=== PATIENT | female | born 1945 | race Caucasian/White ===

== ENCOUNTER 2016-12-24 17:27 | Observation (INO) | payer MEDICARE ==
[2016-12-24 17:56] LABS: BASOPHIL % 0.4 % (0.0-0.4); Eosinophil % 5.8 % (0.00-5.0); Granulocytes % 51.8 % (36.0-66.0); Lymphocytes % 32.2 % (24.0-44.0); Mean Cell Volume 103.4 fl (78-100); Mean Corpuscular Hemoglobin 32.6 pg (26-32); Mean Platelet Volume 9.9 fl (6-9.5); Monocytes % 9.8 % (0.0-12.0); Platelet Count 130 K/mm3 (150-450); Red Blood Count 3.86 M/mm3 (4.1-5.4); Red Cell Distribution Width 14.8 % (11.5-14.0); White Blood Count 4.8 K/mm3 (4.0-10.5)
--- NOTE | 2016-12-24 17:58 | ERPHSYRPT ---
- History of Present Illness Time Seen by Provider: 12/24/16 17:41 Source: patient, family (daughter) Patient Subjective Stated Complaint: pt states she woke up this morning feeling weak. daughter concerned pt blood pressure was to low at home. pt states she ran errands the rest of the day. Triage Nursing Assessment: pt pink, warm, dry. [facility]. radial pulses equally strong. Physician History: CC: fatigue hx: 71 y/o patient of Dr Deangelo De Leon. She was up early today to go with daughter to doctor. She had some lightheadedness and fatigue. She felt blurry eyed. No chest or abd pain. No V/D. BP was low at home over a period of two hours so she came to ER. Symptoms moderate but general. Timing/Duration: today Severity: moderate Allergies/Adverse Reactions: codeine Allergy (Verified 12/24/16 17:45) Penicillins Allergy (Verified 12/24/16 17:45) Sulfa (Sulfonamide Antibiotics) Allergy (Verified 12/24/16 17:45) hydromorphone [From Dilaudid] Adverse Reaction (Verified 12/24/16 17:45) Home Medications: Aspirin 81 mg PO DAILY 12/24/16 [History] Clopidogrel Bisulfate [Plavix] 75 mg PO DAILY 12/24/16 [History] Furosemide 40 mg [Lasix 40 MG] 40 mg PO DAILY 12/24/16 [History] Gabapentin 600 mg PO TID 12/24/16 [History] Metoprolol Tartrate 75 mg PO BID 12/24/16 [History] Pramipexole Di-HCl [Mirapex] 1 mg PO BID 12/24/16 [History] Simvastatin 10 mg PO DAILY 12/24/16 [History] Hx Tetanus, Diphtheria Vaccination/Date Given: Yes (up to date) Hx Influenza Vaccination/Date Given: Yes Hx Pneumococcal Vaccination/Date Given: Yes Immunizations Up to Date: Yes - Review of Systems Constitutional: Chills, Malaise, Weakness, No Fever Eyes: Vision Changes (blurry eyed) Respiratory: No Cough, No Dyspnea Cardiac: No Chest Pain, No Palpitations, No Syncope Abdominal/Gastrointestinal: No Abdominal Pain, No Nausea, No Vomiting, No Diarrhea Genitourinary Symptoms: No Dysuria Musculoskeletal: No Back Pain, No Neck Pain Skin: No Rash Neurological: No Focal Weakness, No Headache, No Parasthesia (but has neuropathy ) All Other Systems: Reviewed and Negative - Past Medical History Pertinent Past Medical History: Yes ENT History: Cataracts Cardiac History: Aneurysm, High Cholesterol, Hypertension Respiratory History: COPD GI Medical History: GERD, Hernia Psycho-Social History: Depression - Past Surgical History Past Surgical History: Yes Cardiac: Vascular Surgery Gastrointestinal: Appendectomy Female Surgical History: Hysterectomy Other Surgical History: cystocele. rectocele. carotidendarectomy - Social History Smoking Status: Current some day smoker Exposure to second hand smoke: Yes Drug Use: none Patient Lives Alone: Yes - Nursing Vital Signs Nursing Vital Signs: Initial Vital Signs Temperature 97.0 F Temperature Source Rectal Pulse Rate 64 Respiratory Rate 18 Blood Pressure [] 133/64 Blood Pressure [] 113/71 Pain Intensity 0 - Physical Exam General Appearance: alert, other (pleasant lady) Eye Exam: PERRL/EOMI Ears, Nose, Throat Exam: dry mucous membranes Neck Exam: normal inspection, non-tender, supple Respiratory Exam: normal breath sounds, lungs clear Cardiovascular Exam: regular rate/rhythm, No murmur Gastrointestinal/Abdomen Exam: soft, No tenderness, No distention Extremity Exam: normal inspection, normal range of motion Neurologic Exam: alert, oriented x 3, cooperative, sensation nml, No motor deficits Skin Exam: warm, dry, No rash SpO2 Interpretation: borderline oxygenation SpO2: 94 Oxygen Delivery: Room Air - Course Nursing assessment & vital signs reviewed: Yes - Radiology Exams cxr X-ray Interpretation: Reviewed by me (right basilar infiltrate, known thoracic aneurysm, CM) Ordered Tests: Active Orders 24 hr Category Date Time Status Desktop Support Manager STAT Care 12/24/16 18:41 Active Cath for Specimen-Straight STAT Care 12/24/16 17:46 Active EKG-ER Only STAT Care 12/24/16 17:46 Active IV Insertion STAT Care 12/24/16 17:46 Active Oxygen-ED Only NASAL CANNULA 2 lpm Care 12/24/16 18:42 Active Oxygen-ED Only NASAL CANNULA 2 lpm Care 12/24/16 18:43 Active Rectal Temperature STAT Care 12/24/16 18:34 Active CHEST 1 VIEW (PORTABLE) Stat Exams 12/24/16 17:55 Taken BLOOD CULTURE Stat Lab 12/24/16 18:49 Received CBC W DIFF Stat Lab 12/24/16 17:51 Completed CMP Stat Lab 12/24/16 17:51 Completed CULTURE,URINE Stat Lab 12/24/16 18:47 Received Lactic Acid Stat Lab 12/24/16 18:20 Results NT PRO BNP Stat Lab 12/24/16 18:28 Completed TROPONIN Stat Lab 12/24/16 17:51 Completed UA W/ MICROSCOPIC Stat Lab 12/24/16 18:47 Completed Medication Summary Generic Name Dose Route Start Last Admin Trade Name Gordon PRN Reason Stop Dose Admin Sodium Chloride 1,000 mls @ 100 mls/hr 12/24/16 18:00 12/24/16 18:11 Sodium Chloride 0.9% 1000 Ml IV 01/23/17 17:59 100 mls/hr .Q10H NORRIS Administration Azithromycin 500 mg in 250 mls @ 250 mls/hr 12/24/16 18:40 12/24/16 18:59 Zithromax 500 Mg/ 250 Ml Nacl Premix IV 12/24/16 19:39 250 mls/hr STAT STA Administration Discontinued Medications Generic Name Dose Route Start Last Admin Trade Name Derrickq PRN Reason Stop Dose Admin Ceftriaxone Sodium/Dextrose 1 g in 50 mls @ 100 mls/hr 12/24/16 18:40 18:52 Rocephin 1 Gm-D5w 50 Ml Bag IV 12/24/16 19:09 100 mls/hr STAT STA Administration Ceftriaxone Sodium/Dextrose Confirm 12/24/16 18:51 Rocephin 1 Gm-D5w 50 Ml Bag Administered 12/24/16 18:52 Dose 1 g in 50 mls @ ud IV .STK-MED ONE Azithromycin Confirm 12/24/16 18:59 Zithromax 500 Mg/ 250 Ml Nacl Premix Administered 12/24/16 19:00 Dose 500 mg in 250 mls @ ud IV .STK-MED ONE Insulin Aspart 6 unit 12/24/16 18:41 12/24/16 18:52 Novolog Insulin SQ 12/24/16 18:42 6 unit STAT ONE Administration Insulin Aspart Confirm 12/24/16 18:51 Novolog Insulin Administered 12/24/16 18:52 Dose 6 unit .ROUTE .STK-MED ONE Lab/Rad Data: Laboratory Result Diagrams 12/24/16 17:51 12/24/16 17:51 Laboratory Results 12/24/16 12/24/16 12/24/16 Range/Units 18:47 18:28 18:20 WBC (4.0-10.5) K/mm3 RBC (4.1-5.4) M/mm3 Hgb (12.0-16.0) gm/dl Hct (35-47) % MCV (78-100) fl MCH (26-32) pg MCHC (32-36) g/dl RDW (11.5-14.0) % Plt Count (150-450) K/mm3 MPV (6-9.5) fl Gran % (36.0-66.0) % Lymphocytes % (24.0-44.0) % Monocytes % (0.0-12.0) % Eosinophils % (0.00-5.0) % Basophils % (0.0-0.4) % Basophils # (0-0.4) Sodium (136-145) mEq/L Potassium (3.5-5.1) mEq/L Chloride (98-107) mEq/L Carbon Dioxide (21-32) mEq/L Anion Gap (5-15) MEQ/L BUN (9-20) mg/dL Creatinine (0.55-1.30) mg/dl Estimated GFR ML/MIN Glucose (70-110) MG/DL Lactic Acid 2.4 H (0.4-2.0) Calcium (8.5-10.1) mg/dL Total Bilirubin (0.2-1.0) mg/dL AST (15-37) U/L ALT (12-78) U/L Alkaline Phosphatase (46-116) U/L Troponin I (0.000-0.056) ng/ml NT-Pro-B Natriuret Pep 378 H (0-125) pg/ml Serum Total Protein (6.4-8.2) gm/dL Albumin (3.4-5.0) g/dL Ur Collection Type CATH Urine Color YELLOW (YELLOW) Urine Appearance SLIGHTLY CLOUDY (CLEAR) Urine pH 5.0 (5-6) Ur Specific [place] 1.020 (1.005-1.025) Urine Protein TRACE (Negative) Urine Glucose (UA) NEGATIVE (NEGATIVE) mg/dL Urine Ketones NEGATIVE (NEGATIVE) Urine Nitrite NEGATIVE (NEGATIVE) Urine Bilirubin NEGATIVE (NEGATIVE) Urine Urobilinogen 0.2 (0-1) mg/dL Urine WBC (Auto) TRACE (NEGATIVE) Urine RBC (Auto) NEGATIVE (0-5) Timbo/ul Urine Microscopic RBC 0-2 (0-2) /HPF Urine Microscopic WBC 10-15 (0-5) /HPF Ur Epithelial Cells MANY (FEW) /HPF Urine Bacteria MANY (NEGATIVE) /HPF Hyaline Casts 2-5 (0-2) /LPF Urine Mucus MODERATE (NEGATIVE) /HPF Urine Yeast RARE (NEGATIVE) /HPF Specimen Received 12/24/16 1850 12/24/16 12/24/16 Range/Units 17:51 17:51 WBC 4.8 (4.0-10.5) K/mm3 RBC 3.86 L (4.1-5.4) M/mm3 Hgb 12.6 (12.0-16.0) gm/dl Hct 39.9 (35-47) % MCV 103.4 H (78-100) fl MCH 32.6 H (26-32) pg MCHC 31.6 L (32-36) g/dl RDW 14.8 H (11.5-14.0) % Plt Count 130 L (150-450) K/mm3 MPV 9.9 H (6-9.5) fl Gran % 51.8 (36.0-66.0) % Lymphocytes % 32.2 (24.0-44.0) % Monocytes % 9.8 (0.0-12.0) % Eosinophils % 5.8 H (0.00-5.0) % Basophils % 0.4 (0.0-0.4) % Basophils # 0.02 (0-0.4) Sodium 138 (136-145) mEq/L Potassium 4.2 (3.5-5.1) mEq/L Chloride 100 (98-107) mEq/L Carbon Dioxide 28.3 (21-32) mEq/L Anion Gap 13.8 (5-15) MEQ/L BUN 31 H (9-20) mg/dL Creatinine 1.60 H (0.55-1.30) mg/dl Estimated GFR 34 ML/MIN Glucose 363 H (70-110) MG/DL Lactic Acid (0.4-2.0) Calcium 8.5 (8.5-10.1) mg/dL Total Bilirubin 0.2 (0.2-1.0) mg/dL AST 28 (15-37) U/L ALT 38 (12-78) U/L Alkaline Phosphatase 115 (46-116) U/L Troponin I < 0.017 (0.000-0.056) ng/ml NT-Pro-B Natriuret Pep (0-125) pg/ml Serum Total Protein 7.7 (6.4-8.2) gm/dL Albumin 3.1 L (3.4-5.0) g/dL Ur Collection Type Urine Color (YELLOW) Urine Appearance (CLEAR) Urine pH (5-6) Ur Specific [place] (1.005-1.025) Urine Protein (Negative) Urine Glucose (UA) (NEGATIVE) mg/dL Urine Ketones (NEGATIVE) Urine Nitrite (NEGATIVE) Urine Bilirubin (NEGATIVE) Urine Urobilinogen (0-1) mg/dL Urine WBC (Auto) (NEGATIVE) Urine RBC (Auto) (0-5) Timbo/ul Urine Microscopic RBC (0-2) /HPF Urine Microscopic WBC (0-5) /HPF Ur Epithelial Cells (FEW) /HPF Urine Bacteria (NEGATIVE) /HPF Hyaline Casts (0-2) /LPF Urine Mucus (NEGATIVE) /HPF Urine Yeast (NEGATIVE) /HPF Specimen Received - Progress Progress Note: 12/24/16 19:10 Pt stable BP here. O2 sat 89% low so O2 applied Gentle IVF given. She states not aware of prior diabetes. She certainly is not treated. She is not on home oxygen. Glc high. She appears dehydrated. Will treat sepsis, RLL pneumonia. She will need sugar management. Called Dr Segura for Dr Deangelo De Leon for observation. Discussed with : Imelda (for Deangelo De Leon) Will see patient in: hospital (observation) Counseled pt/family regarding: lab results, diagnosis, need for follow-up, rad results - Departure Time of Disposition: 19:11 Departure Disposition: Observation Clinical Impression: Sepsis, RLL pneumonia, Hyperglycemia, Hypoxemia, Dehydration Condition: Fair Critical Care Time: No Referrals: IGLESIA DE LEON [Primary Care Provider] -
[2016-12-24] MEDS ORDERED: Sodium Chloride 0.9% 1000 ML 1,000 ML IV SCH (18:00)
[2016-12-24] MEDS ORDERED: Sodium Chloride 0.9% 1000 ML 1,000 ML ONE (18:09)
[2016-12-24 18:25] LABS: ALBUMIN 3.1 g/dL (3.4-5.0); ALKALINE PHOSPHATASE 115 U/L (46-116); ANION GAP 13.8 MEQ/L (5-15); BILIRUBIN,TOTAL 0.2 mg/dL (0.2-1.0); BLOOD UREA NITROGEN 31 mg/dL (9-20); CHLORIDE 100 mEq/L (98-107); Carbon Dioxide 28.3 mEq/L (21-32); Glucose 363 MG/DL (70-110); Potassium 4.2 mEq/L (3.5-5.1); SGOT/AST 28 U/L (15-37); SGPT/ALT 38 U/L (12-78); SODIUM 138 mEq/L (136-145); Total Protein 7.7 gm/dL (6.4-8.2)
[2016-12-24 18:25] LABS: Lactic Acid 2.4 (0.4-2.0)
[2016-12-24 18:27] LABS: TROPONIN < 0.017 ng/ml (0.000-0.056)
[2016-12-24] MEDS ORDERED: ROCEPHIN 1 Gm-D5w 50 ml Bag** 1 G/50 ML IVPB IV STA (18:40)
[2016-12-24] MEDS ORDERED: Zithromax 500 MG/ 250 ML NaCl Premix 500 MG/250 ML IVPB IV STA (18:40)
[2016-12-24] MEDS ORDERED: NovoLOG Insulin SQ ONE (18:41)
[2016-12-24] MEDS ORDERED: NovoLOG Insulin ONE (18:51)
[2016-12-24] MEDS ORDERED: ROCEPHIN 1 Gm-D5w 50 ml Bag** 1 G/50 ML IVPB IV ONE (18:51)
[2016-12-24] MEDS ORDERED: Zithromax 500 MG/ 250 ML NaCl Premix 500 MG/250 ML IVPB IV ONE (18:59)
[2016-12-24 19:04] LABS: Collection Type CATH
[2016-12-24 19:05] LABS: Bacteria MANY /HPF (NEGATIVE); COMPLETE URINE MICROSCOPIC? YES; Epithelial Cells MANY /HPF (FEW); Mucus MODERATE /HPF (NEGATIVE); Yeast RARE /HPF (NEGATIVE)
[2016-12-24] MEDS ORDERED: TYLENOL 325 MG PO PRN (20:29)
[2016-12-24] MEDS ORDERED: NEURONTIN 300 MG PO ONE (22:16)
[2016-12-24] MEDS ORDERED: Lopressor 25MG Tab PO ONE (22:17)
[2016-12-24] MEDS ORDERED: Mirapex 0.5 MG Tablet PO ONE (22:20)
[2016-12-24] MEDS ORDERED: Zocor 10MG PO ONE (22:21)
[2016-12-24] MEDS ORDERED: Lasix 40 MG PO ONE (22:22)
[2016-12-24] MEDS: Pepcid 20 MG VIAL IV SCH (23:36)
[2016-12-24] MEDS: Sodium Chloride 0.9% 1000 ML 1,000 ML IV SCH (23:41)
[2016-12-25] MEDS: NovoLOG Insulin SQ PRN ×4 (01:09→20:14)
[2016-12-25] MEDS: Sodium Chloride 0.9% 1000 ML 1,000 ML IV SCH (05:58)
[2016-12-25 06:27] LABS: ANION GAP 10.7 MEQ/L (5-15); Carbon Dioxide 29.6 mEq/L (21-32); Potassium 3.8 mEq/L (3.5-5.1)
[2016-12-25 06:49] LABS: BASOPHIL % 0.2 % (0.0-0.4); Eosinophil % 5.8 % (0.00-5.0); Granulocytes % 56.6 % (36.0-66.0); Lymphocytes % 28.4 % (24.0-44.0); Mean Cell Volume 103.7 fl (78-100); Mean Platelet Volume 9.8 fl (6-9.5); Platelet Count 118 K/mm3 (150-450); Red Blood Count 3.53 M/mm3 (4.1-5.4); Red Cell Distribution Width 14.8 % (11.5-14.0); White Blood Count 4.7 K/mm3 (4.0-10.5)
[2016-12-25 06:54] LABS: Mean Corpuscular Hemoglobin 32.2 pg (26-32)
--- NOTE | 2016-12-25 08:39 | PCM.HP ---
History of Present Illness - Chief Complaint Chief Complaint: pneumonia Date: 12/25/16 History of Present Illness: is a 71 year old female. who has had symptoms of runny nose and ild cough and congestion for about 3 weeks but awoke yesterday with chills weakness and fatigue that was worsening and was having low blood pressure readings at e and presented to The ED. She is feeling much better this am after treatment still a little weak feeling. - Review of Systems Constitutional: Chills, Fatigue, No Fever Eyes: No Symptoms Ears, Nose, & Throat: Nose Congestion, Sinus Drainage Respiratory: Cough, Short Of Breath Cardiac: No Chest Pain, No Edema, No Syncope Abdominal/Gastrointestinal: No Abdominal Pain, No Nausea, No Vomiting, No Diarrhea Genitourinary Symptoms: No Dysuria Musculoskeletal: No Back Pain, No Neck Pain Skin: No Rash Neurological: No Dizziness, No Focal Weakness, No Sensory Changes Psychological: No Symptoms Endocrine: No Symptoms Hematologic/Lymphatic: No Symptoms Immunological/Allergic: No Symptoms Medications & Allergies Home Medications: Home Medication List Aspirin 81 mg PO DAILY 12/24/16 [History Confirmed 12/24/16] Clopidogrel Bisulfate [Plavix] 75 mg PO DAILY 12/24/16 [History Confirmed ] Furosemide 40 mg [Lasix 40 MG] 40 mg PO TID 12/24/16 [History Confirmed ] Gabapentin 600 mg PO TID 12/24/16 [History Confirmed 12/24/16] Metoprolol Tartrate 75 mg PO BID 12/24/16 [History Confirmed 12/24/16] Pramipexole Di-HCl [Mirapex] 1 mg PO BID 12/24/16 [History Confirmed 12/24/16] Omeprazole 20 MG [Prilosec 20 mg] 20 mg PO DAILY 12/25/16 [History Confirmed ] Rosuvastatin Calcium [Crestor] 10 mg PO HS 12/25/16 [History Confirmed 12/25/16] Allergies/Adverse Reactions: Allergies Allergy/AdvReac Type Severity Reaction Status Date / Time codeine Allergy Verified 12/24/16 17:45 Penicillins Allergy Verified 12/24/16 17:45 Sulfa (Sulfonamide Allergy Verified 12/24/16 17:45 Antibiotics) hydromorphone [From Dilaudid] AdvReac Verified 12/24/16 17:45 - Past Medical History Past Medical History: Yes Neurological History: No Pertinent History ENT History: Cataracts Cardiac History: Aneurysm, High Cholesterol, Hypertension Respiratory History: CHF, COPD, Pneumonia Endocrine Medical History: No Pertinent History, Diabetes Type II Musculoskelatal History: Arthritis GI Medical History: GERD, Hernia History: Other Pyscho-Social History: Depression Reproductive Disorders: No Pertinent History - Female History Are you now?: No - Past Surgical History Past Surgical History: Yes Neuro Surgical History: No Pertinent History Cardiac History: Vascular Surgery Respiratory Surgery: No Pertinent History GI Surgical History: Appendectomy Genitourinary Surgical Hx: No Pertinent History Musculskeletal Surgical Hx: No Pertinent History Female Surgical History: Hysterectomy Other Surgical History: cystocele. rectocele. carotidendarectomy. cataract surgery scheduled for 01/01 - Social History Smoking Status: Former smoker Exposure to second hand smoke: Yes Alcohol: None Drug Use: none - Physical Exam Vital Signs: Vital Signs - 24 hr Temp Pulse Resp BP BP Pulse Ox 12/25/16 07:55 18 12/25/16 07:23 97.8 F 66 18 123/59 95 12/25/16 04:00 98.7 F 71 19 121/68 92 L 12/25/16 00:00 98.7 F 70 15 138/66 95 12/24/16 21:02 67 20 93 L 12/24/16 20:48 97.7 F 63 16 126/62 93 L 12/24/16 19:22 98.6 F 65 18 132/76 96 12/24/16 19:12 94 L 12/24/16 18:40 97.0 F 12/24/16 18:26 64 18 113/71 12/24/16 17:36 98.3 F 72 20 133/64 128/76 89 L Oxygen-Last 24 hours O2 Percentage 2 Liters = 28% O2 Percentage 2 Liters = 28% O2 Percentage 2 Liters = 28% O2 Percentage 2 Liters = 28% General Appearance: no apparent distress, alert Neurologic Exam: alert, oriented x 3, cooperative, normal mood/affect Eye Exam: PERRL/EOMI, eyes nml inspection Ears, Nose, Throat Exam: pharynx normal, moist mucous membranes Neck Exam: normal inspection, non-tender, supple, full range of motion Respiratory Exam: normal breath sounds, lungs clear, No respiratory distress Cardiovascular Exam: regular rate/rhythm, normal heart sounds, normal peripheral pulses Gastrointestinal/Abdomen Exam: soft, normal bowel sounds, No tenderness, No mass Back Exam: normal inspection, normal range of motion, No CVA tenderness, No vertebral tenderness Extremity Exam: normal inspection, normal range of motion, pedal edema Skin Exam: normal color, warm, dry, No rash Lymphatic Exam: No adenopathy Results - Labs Lab/Micro Results: Accuchecks Date 12/25/16 Date 12/25/16 Date 12/24/16 Time 07:42 Time 04:00 Time 21:00 Accucheck Value: 179 Accucheck Value: 217 Lab Results-Last 24 Hours 12/24/16 12/25/16 12/25/16 Range/Units 20:40 05:25 06:05 WBC 4.7 (4.0-10.5) K/mm3 RBC 3.53 L (4.1-5.4) M/mm3 Hgb 11.4 L (12.0-16.0) gm/dl Hct 36.6 (35-47) % MCV 103.7 H (78-100) fl MCH 32.2 H (26-32) pg MCHC 31.1 L (32-36) g/dl RDW 14.8 H (11.5-14.0) % Plt Count 118 L (150-450) K/mm3 MPV 9.8 H (6-9.5) fl Gran % 56.6 (36.0-66.0) % Lymphocytes % 28.4 (24.0-44.0) % Monocytes % 9.0 (0.0-12.0) % Eosinophils % 5.8 H (0.00-5.0) % Basophils % 0.2 (0.0-0.4) % Basophils # 0.01 (0-0.4) Sodium (136-145) mEq/L Potassium (3.5-5.1) mEq/L Chloride (98-107) mEq/L Carbon Dioxide (21-32) mEq/L Anion Gap (5-15) MEQ/L BUN (9-20) mg/dL Creatinine (0.55-1.30) mg/dl Estimated GFR ML/MIN Glucose (70-110) MG/DL Lactic Acid 1.6 1.4 (0.4-2.0) Calcium (8.5-10.1) mg/dL 12/25/16 Range/Units 06:05 WBC (4.0-10.5) K/mm3 RBC (4.1-5.4) M/mm3 Hgb (12.0-16.0) gm/dl Hct (35-47) % MCV (78-100) fl MCH (26-32) pg MCHC (32-36) g/dl RDW (11.5-14.0) % Plt Count (150-450) K/mm3 MPV (6-9.5) fl Gran % (36.0-66.0) % Lymphocytes % (24.0-44.0) % Monocytes % (0.0-12.0) % Eosinophils % (0.00-5.0) % Basophils % (0.0-0.4) % Basophils # (0-0.4) Sodium 140 (136-145) mEq/L Potassium 3.8 (3.5-5.1) mEq/L Chloride 103 (98-107) mEq/L Carbon Dioxide 29.6 (21-32) mEq/L Anion Gap 10.7 (5-15) MEQ/L BUN 28 H (9-20) mg/dL Creatinine 1.37 H (0.55-1.30) mg/dl Estimated GFR 40 ML/MIN Glucose 162 H (70-110) MG/DL Lactic Acid (0.4-2.0) Calcium 7.6 L (8.5-10.1) mg/dL Accuchecks Date 12/25/16 Date 12/25/16 Date 12/24/16 Time 07:42 Time 04:00 Time 21:00 Accucheck Value: 179 Accucheck Value: 217 Assessment/Plan (1) RLL pneumonia Current Visit: Yes Status: Acute Assessment & Plan: community aquired with elevated lactic acid resolved and hypoxia continue rocphin and azithromycin d/c if fluids with her hx of fluid overload decrease the lasix to once a day monitor renal function wean O2 as tolerated increase activity as tolerated add lovenox for ppx. Code(s): J18.1 - LOBAR PNEUMONIA, UNSPECIFIED ORGANISM (2) Sepsis Current Visit: Yes Status: Resolved (3) Acute kidney injury Current Visit: Yes Status: Acute Code(s): N17.9 - ACUTE KIDNEY FAILURE, UNSPECIFIED (4) Type 2 diabetes mellitus Current Visit: Yes Status: Acute Assessment & Plan: new diagnosis with A1c at 8.6 and will add threapy as outpatient use sliding scale coveratge wit the acute sepsis and impaired renal function montor for baseline renal fucntion (5) Coronary artery disease Current Visit: Yes Status: Chronic Code(s): I25.10 - ATHSCL HEART DISEASE OF [place] CORONARY ARTERY W/O ANG PCTRS (6) Hypoxemia Current Visit: Yes Status: Acute Code(s): R09.02 - HYPOXEMIA (7) Dehydration Current Visit: Yes Status: Acute Code(s): E86.0 - DEHYDRATION
--- NOTE | 2016-12-25 08:59 | XRAY ---
Indication: Fatigue and weakness. Known thoracic aneurysm. Comparison: None Portable apical lordotic chest demonstrates right base infiltrate/atelectasis, scattered calcified granulomas, and cardiomegaly. Prominent descending aorta consistent with known aneurysm. Bony thorax intact with minimal degenerative changes. There has been previous bilateral carotid endarterectomy. Impression: 1. Right base infiltrate/atelectasis. Correlate clinically. 2. Cardiomegaly and known thoracic aneurysm. 3. Evidence for old granulomatous disease.
[2016-12-25] MEDS: Lyrica 25 MG PO SCH ×3 (09:43→22:04)
[2016-12-25] MEDS: Lyrica 50MG PO SCH ×3 (09:43→22:05)
[2016-12-25] MEDS: ENOXAPARIN SODIUM SQ SCH (09:43)
[2016-12-25] MEDS: Pepcid 20 MG VIAL IV SCH ×2 (09:43→22:06)
[2016-12-25] MEDS: PLAVIX 75 MG Tablet PO SCH (09:43)
[2016-12-25] MEDS: Lopressor 50 MG PO SCH ×2 (09:43→22:05)
[2016-12-25] MEDS: ECOTRIN 81 MG PO SCH (09:43)
[2016-12-25] MEDS: ROCEPHIN 1 Gm-D5w 50 ml Bag** 1 G/50 ML IVPB IV SCH (09:44)
[2016-12-25] MEDS: Protonix 40MG Tablet PO SCH (09:45)
[2016-12-25] MEDS: Lasix 40 MG PO SCH (09:46)
[2016-12-25] MEDS: Mirapex 0.5 MG Tablet PO SCH ×2 (09:46→22:05)
[2016-12-25] MEDS ORDERED: NON-FORMULARY ITEM (Pramipexole Di-Hcl [Mirapex] 1 MG) PO SCH (10:00)
[2016-12-25] MEDS ORDERED: NON-FORMULARY ITEM (Aspirin [Aspirin] 81 MG) PO SCH (10:00)
[2016-12-25] MEDS ORDERED: METOPROLOL TARTRATE 75 MG PO SCH (10:00)
[2016-12-25] MEDS ORDERED: NON-FORMULARY ITEM (Omeprazole 20 Mg [Prilosec 20 Mg] 20 MG) PO SCH (10:00)
[2016-12-25] MEDS ORDERED: Lasix 40 MG PO SCH (10:00)
[2016-12-25] MEDS ORDERED: Sodium Chloride 0.9% 10 ML FLUSH Syringe IV PRN (11:10)
[2016-12-25] MEDS ORDERED: Zithromax 500 MG/ 250 ML NaCl Premix 500 MG/250 ML IVPB IV SCH (19:00)
[2016-12-25] MEDS ORDERED: NON-FORMULARY ITEM (Rosuvastatin Calcium [Crestor] 10 MG) PO SCH (22:00)
[2016-12-25] MEDS ORDERED: ZOCOR 20MG PO SCH (22:00)
[2016-12-25] MEDS: Sodium Chloride 0.9% 10 ML FLUSH Syringe IV SCH (22:06)
[2016-12-26] MEDS: Sodium Chloride 0.9% 10 ML FLUSH Syringe IV SCH ×2 (00:51→06:36)
[2016-12-26] MEDS: ECOTRIN 81 MG PO SCH (09:28)
[2016-12-26] MEDS: ENOXAPARIN SODIUM SQ SCH (09:28)
[2016-12-26] MEDS: Lasix 40 MG PO SCH (09:29)
[2016-12-26] MEDS: Lopressor 50 MG PO SCH (09:30)
[2016-12-26] MEDS: Lyrica 25 MG PO SCH (09:31)
[2016-12-26] MEDS: Lyrica 50MG PO SCH (09:31)
[2016-12-26] MEDS: Mirapex 0.5 MG Tablet PO SCH (09:32)
[2016-12-26] MEDS: Pepcid 20 MG VIAL IV SCH (09:32)
[2016-12-26] MEDS: PLAVIX 75 MG Tablet PO SCH (09:33)
[2016-12-26] MEDS: ROCEPHIN 1 Gm-D5w 50 ml Bag** 1 G/50 ML IVPB IV SCH (09:33)
[2016-12-26] MEDS: Protonix 40MG Tablet PO SCH (09:33)
[2016-12-26 10:33] LABS: ANION GAP 12.2 MEQ/L (5-15); Carbon Dioxide 28.1 mEq/L (21-32); Potassium 3.7 mEq/L (3.5-5.1)
--- NOTE | 2016-12-26 12:31 | PCM.DCORD ---
- Discharge Discharge Date: 12/26/16 Disposition: Home, Self-Care Condition: Good Prescriptions: New Metformin HCl 500 mg [Glucophage 500 MG] 500 mg PO BID #60 tablet Pregabalin [Lyrica] 75 mg PO TID #90 capsule Azithromycin 250 mg [Zithromax 250 MG TABLET] 250 mg PO DAILY #4 tablet Continue Furosemide 40 mg [Lasix 40 MG] 40 mg PO TID Aspirin 81 mg PO DAILY Pramipexole Di-HCl [Mirapex] 1 mg PO BID Clopidogrel Bisulfate [Plavix] 75 mg PO DAILY Metoprolol Tartrate 75 mg PO BID Rosuvastatin Calcium [Crestor] 10 mg PO HS Omeprazole 20 MG [Prilosec 20 mg] 20 mg PO DAILY Discontinued Gabapentin 600 mg PO TID Instructions: Check Your Blood Glucose, Calorie-Counting Diet, Carbohydrate- Counting Diet, Pneumonia -- Adult, Diabetes Type 2 Follow up with: IGLESIA DE LEON [Primary Care Provider] - 01/02/17 2:45 pm Forms: Patient Portal Information
[2016-12-26 12:38] VITALS: BP 162/101; PULSE 68; O2SAT 96
--- NOTE | 2016-12-26 19:06 | PCM.DS ---
Discharge Summary Date of Admission: 12/24/16 20:19 Date of Discharge: 12/26/16 Admitting Physician: IGLESIA DE LEON Primary Care Provider: IGLESIA DE LEON Allergies Allergies codeine Allergy (Verified 12/24/16 17:45) Penicillins Allergy (Verified 12/24/16 17:45) Sulfa (Sulfonamide Antibiotics) Allergy (Verified 12/24/16 17:45) hydromorphone [From Dilaudid] Adverse Reaction (Verified 12/24/16 17:45) Hospital Summary - Hospital Course Hospital Course: Presented with 3 weeks of URI symptoms and 1 day of weakness and low bp. She was found to have right base pneumonia with sepsis and lactic acidosis and acute kidney injury, acute respiratory failure hypoxemic, as well as hyperglycemia and found to have elevated A1c consistent with new diagnosis of type 2 diabetes. She responded to fluid resucitation and her renal function improved. SHe was treated for community aquired pneumonia and improved. She was feeling better but still short of breath with exertion and has been on home O2 in the past. She was feeling much better but still requiring oxygen. She was thus qualified for home oxygen and started on metformin to titrate up as tolerated as an outpatient monitor renal function. Her lasix was decreased to bid from tid - Vitals & Intake/Output Vital Signs: Vital Signs Temperature 98.7 F 12/26/16 12:00 Pulse Rate 68 12/26/16 12:00 Respiratory Rate 18 12/26/16 12:00 Blood Pressure 162/101 12/26/16 12:38 O2 Sat by Pulse Oximetry 96 12/26/16 12:00 Oxygen-Last Documented O2 Percentage 2 Liters = 28% Intake & Output: Intake & Output 12/24/16 12/25/16 12/26/16 12/27/16 11:59 11:59 11:59 11:59 Intake Total 1190 1300 Output Total 400 1700 Balance 790 -400 Weight 97.182 kg 99.564 kg - Lab Result Diagrams: 12/25/16 06:05 12/26/16 09:40 Lab Results-Last 24 Hrs: Accuchecks Date 12/26/16 Date 12/26/16 Date 12/26/16 Date 12/26/16 Date 12/26/16 Date 12/25/16 Time 12:20 Time 07:49 Time 07:36 Time 04:00 Time 00:00 Time 20:00 Accucheck Value: 187 Accucheck Value: 133 Accucheck Value: 153 Accucheck Value: 116 Accucheck Value: 102 Accucheck Value: 229 Lab Results-Last 24 Hours 12/26/16 Range/Units 09:40 Sodium 139 (136-145) mEq/L Potassium 3.7 (3.5-5.1) mEq/L Chloride 102 (98-107) mEq/L Carbon Dioxide 28.1 (21-32) mEq/L Anion Gap 12.2 (5-15) MEQ/L BUN 20 (9-20) mg/dL Creatinine 1.34 H (0.55-1.30) mg/dl Estimated GFR 41 ML/MIN Glucose 262 H (70-110) MG/DL Calcium 7.9 L (8.5-10.1) mg/dL Micro Results-Entire Visit: Accuchecks Date 12/26/16 Date 12/26/16 Date 12/26/16 Date 12/26/16 Date 12/26/16 Date 12/25/16 Time 12:20 Time 07:49 Time 07:36 Time 04:00 Time 00:00 Time 20:00 Accucheck Value: 187 Accucheck Value: 133 Accucheck Value: 153 Accucheck Value: 116 Accucheck Value: 102 Accucheck Value: 229 - Procedures and Test Procedures and Tests throughout Hospitalization: Therapy Orders & Screens 12/24/16 21:44 RT Screen per Nursing Assess ONCE Comment: Protocol Order Physician Instructions: Greater than 3 points order RT Admission Screen Reason For Exam: Triggered on Admission Diagnosis: pneumonia Diagnosis: pneumonia Pneumonia: Yes Home O2: No Asthma: No CHF: Yes Home CPAP/BIPAP: No Home Nebs/MDI: No Total Points: 6 12/26/16 08:48 Qualify for Home Oxygen ROUTINE Comment: Diagnosis: pneumonia Discharge Exam General Appearance: no apparent distress, alert Neurologic Exam: alert, oriented x 3, cooperative, normal mood/affect, nml cerebellar function, sensation nml, No motor deficits Skin Exam: normal color, warm, dry Eye Exam: PERRL, EOMI, eyes nml inspection Ears, Nose, Throat Exam: normal ENT inspection, pharynx normal, moist mucous membranes Neck Exam: normal inspection, non-tender, supple, full range of motion Respiratory Exam: crackles/rales (right basilar), No respiratory distress Cardiovascular Exam: regular rate/rhythm, normal heart sounds Gastrointestinal/Abdomen Exam: soft, No tenderness, No mass Extremity Exam: normal inspection, normal range of motion Back Exam: normal inspection, normal range of motion, No CVA tenderness, No vertebral tenderness Pelvic Exam: deferred Rectal Exam: deferred Final Diagnosis/Problem List - Final Discharge Diagnosis/Problem (1) RLL pneumonia Status: Acute (2) Sepsis Status: Resolved (3) Acute kidney injury Status: Resolved (4) Type 2 diabetes mellitus Status: Acute (5) Coronary artery disease Status: Chronic (6) Dehydration Status: Resolved (7) Acute hypoxemic respiratory failure Status: Acute (8) Thoracic aortic aneurysm without rupture Status: Chronic - Discharge Disposition: Home, Self-Care Condition: Good Prescriptions: New Metformin HCl 500 mg [Glucophage 500 MG] 500 mg PO BID #60 tablet Pregabalin [Lyrica] 75 mg PO TID #90 capsule Azithromycin 250 mg [Zithromax 250 MG TABLET] 250 mg PO DAILY #4 tablet Continue Furosemide 40 mg [Lasix 40 MG] 40 mg PO TID Aspirin 81 mg PO DAILY Pramipexole Di-HCl [Mirapex] 1 mg PO BID Clopidogrel Bisulfate [Plavix] 75 mg PO DAILY Metoprolol Tartrate 75 mg PO BID Rosuvastatin Calcium [Crestor] 10 mg PO HS Omeprazole 20 MG [Prilosec 20 mg] 20 mg PO DAILY Discontinued Gabapentin 600 mg PO TID Instructions: Check Your Blood Glucose, Calorie-Counting Diet, Carbohydrate- Counting Diet, Pneumonia -- Adult, Diabetes Type 2 Follow up with: IGLESIA DE LEON [Primary Care Provider] - 01/02/17 2:45 pm Forms: Patient Portal Information
== END 2016-12-26 13:05 | disposition home or self-care (01) ==
LOC: ED 17:27 → MED SURG 20:19
PROVIDERS: ADMIT Family Medicine; ATTEND Family Medicine
DX: J18.9 Pneumonia, unspecified organism (principal); A41.9 Sepsis, unspecified organism; N17.9 Acute kidney failure, unspecified; E11.9 Type 2 diabetes mellitus without complications; Z79.4 Long term (current) use of insulin; I25.10 Atherosclerotic heart disease of native coronary artery without angina pectoris; E86.0 Dehydration; J96.01 Acute respiratory failure with hypoxia; I71.2 Thoracic aortic aneurysm, without rupture; I10 Essential (primary) hypertension; I50.9 Heart failure, unspecified; M19.90 Unspecified osteoarthritis, unspecified site; K21.9 Gastro-esophageal reflux disease without esophagitis; G62.9 Polyneuropathy, unspecified; F32.9 Major depressive disorder, single episode, unspecified; Z79.899 Other long term (current) drug therapy
CPT/HCPCS: 93041; 96372; 99285; 36000; 96360; 96361; 93005; 87040; 81000; 36415 ×3; 83036; 83880; 87186; 85025 ×2; 87077; 80048 ×2; 80053; 84484; 87086; 71010; 94760 ×2; 83605 ×2; P9612; 82962; 93268; 96365; G0378; J0456; J0696; J1650; A9270-GY

== ENCOUNTER 2017-01-09 23:26 | Emergency (ER) | payer MEDICARE ==
[2017-01-09] MEDS ORDERED: Cardizem IV 50 MG/10 ML IV ONE ×2 (23:33→23:38)
[2017-01-09] MEDS ORDERED: CARDIZEM DRIP 100 MG/100 ML D5W 100 ML IV PRN (23:33)
--- NOTE | 2017-01-09 23:35 | ERPHSYRPT ---
- History of Present Illness Time Seen by Provider: 01/09/17 23:26 Source: patient Exam Limitations: no limitations Physician History: FOR THE PAST 30 MINUTES PT HAS HAD DIZZINESS, HEADACHE, DIAPHORESIS AND BURNING MID ANTERIOR CHEST PAIN. PT DENIES VOMITING, FEVER, ABDOMINAL PAIN. Allergies/Adverse Reactions: codeine Allergy (Verified 01/09/17 23:52) Penicillins Allergy (Verified 01/09/17 23:52) Sulfa (Sulfonamide Antibiotics) Allergy (Verified 01/09/17 23:52) hydromorphone [From Dilaudid] Adverse Reaction (Verified 01/09/17 23:52) Home Medications: Aspirin 81 mg PO DAILY 12/24/16 [History] Clopidogrel Bisulfate [Plavix] 75 mg PO DAILY 12/24/16 [History] Furosemide 40 mg [Lasix 40 MG] 40 mg PO TID 12/24/16 [History] Metoprolol Tartrate 75 mg PO BID 12/24/16 [History] Pramipexole Di-HCl [Mirapex] 1 mg PO BID 12/24/16 [History] Omeprazole 20 MG [Prilosec 20 mg] 20 mg PO DAILY 12/25/16 [History] Rosuvastatin Calcium [Crestor] 10 mg PO HS 12/25/16 [History] Hx Tetanus, Diphtheria Vaccination/Date Given: Yes (up to date) Hx Influenza Vaccination/Date Given: Yes Hx Pneumococcal Vaccination/Date Given: Yes - Review of Systems Constitutional: No Fever Cardiac: Chest Pain Abdominal/Gastrointestinal: No Abdominal Pain, No Vomiting Neurological: Dizziness, Headache Endocrine: Excessive Sweating All Other Systems: Reviewed and Negative - Past Medical History Pertinent Past Medical History: Yes Neurological History: No Pertinent History ENT History: Cataracts Cardiac History: Aneurysm, High Cholesterol, Hypertension Respiratory History: CHF, COPD, Pneumonia Endocrine Medical History: No Pertinent History, Diabetes Type II Musculoskeletal History: Arthritis GI Medical History: GERD, Hernia History: Other Psycho-Social History: Depression Female Reproductive Disorders: No Pertinent History - Past Surgical History Past Surgical History: Yes Neuro Surgical History: No Pertinent History Cardiac: Vascular Surgery Respiratory: No Pertinent History Gastrointestinal: Appendectomy Genitourinary: No Pertinent History Musculoskeletal: No Pertinent History Female Surgical History: Hysterectomy Other Surgical History: cystocele. rectocele. carotidendarectomy. cataract surgery scheduled for 01/01 - Social History Smoking Status: Former smoker Exposure to second hand smoke: Yes Drug Use: none Patient Lives Alone: Yes - Nursing Vital Signs Nursing Vital Signs: Initial Vital Signs Temperature 97.5 F Temperature Source Rectal Pulse Rate [] 148 Pulse Rate 136 Respiratory Rate 124 Blood Pressure [] 81/61 Pain Intensity 7 - Physical Exam General Appearance: alert Eye Exam: PERRL/EOMI Ears, Nose, Throat Exam: pharynx normal Neck Exam: normal inspection Respiratory Exam: lungs clear Cardiovascular Exam: tachycardia, irregular Gastrointestinal/Abdomen Exam: soft, normal bowel sounds Back Exam: normal range of motion Extremity Exam: normal inspection Neurologic Exam: alert, cooperative Skin Exam: warm, diaphoresis - Course Nursing assessment & vital signs reviewed: Yes EKG Interpreted by Me: RATE (141), A-fib, NORMAL AXIS, Ischemic ST-T changes (V2 -V6), Other (A.FIB WITH RVR) - Radiology Exams Chest X-ray Interpretation: Interpreted by me, No Pneumonia Ordered Tests: Active Orders 24 hr Category Date Time Status Convention Services Director STAT Care 01/09/17 23:33 Active EKG-ER Only STAT Care 01/09/17 23:33 Active IV Insertion STAT Care 01/09/17 23:33 Active Oxygen-ED Only NASAL CANNULA 4 lpm Care 01/09/17 23:33 Active Pulse Oximetry (ED) STAT Care 01/09/17 23:33 Active CHEST 1 VIEW (PORTABLE) Stat Exams 01/09/17 23:34 Taken AMYLASE Stat Lab 01/09/17 23:38 Completed CBC W DIFF Stat Lab 01/09/17 23:38 Completed CMP Stat Lab 01/09/17 23:38 Completed LIPASE Stat Lab 01/09/17 23:38 Completed MAGNESIUM Stat Lab 01/09/17 23:38 Completed NT PRO BNP Stat Lab 01/09/17 23:38 Completed PROTIME WITH INR Stat Lab 01/09/17 23:38 Completed PTT Stat Lab 01/09/17 23:38 Completed TROPONIN Q3H Lab 01/09/17 23:38 Completed TROPONIN Q3H Lab 01/10/17 02:45 Ordered TROPONIN Q3H Lab 01/10/17 05:45 Ordered TROPONIN Q3H Lab 01/10/17 08:45 Ordered TROPONIN Q3H Lab 01/10/17 11:45 Ordered UA W/RFX UR CULTURE Stat Lab 01/09/17 23:33 Ordered Medication Summary Generic Name Dose Route Start Last Admin Trade Name Freq PRN Reason Stop Dose Admin Diltiazem HCl 100 mls @ 5 mls/hr 01/09/17 23:33 01/09/17 23:39 Cardizem Drip 100 Mg/100 Ml D5w IV 02/08/17 23:32 5 mg/hr .Q20H PRN 5 mls/hr HEART RATE/ A-FIB Administration Protocol 5 MG/HR Sodium Chloride 1,000 mls @ 100 mls/hr 01/09/17 23:45 01/09/17 23:39 Sodium Chloride 0.9% 1000 Ml IV 02/08/17 23:44 100 mls/hr .Q10H NORRIS Administration Discontinued Medications Generic Name Dose Route Start Last Admin Trade Name Freq PRN Reason Stop Dose Admin Digoxin Confirm 01/10/17 00:24 Lanoxin 0.5 Mg/2 Ml Injection Administered 01/10/17 00:25 Dose 0.5 mg .ROUTE .STK-MED ONE Digoxin 0.25 mg 01/10/17 00:26 Lanoxin 0.5 Mg/2 Ml Injection IV 01/10/17 00:27 STAT ONE Diltiazem HCl 10 mg 01/09/17 23:33 01/09/17 23:42 Cardizem Iv 50 Mg/10 Ml IV 01/09/17 23:34 10 mg STAT ONE Administration Diltiazem HCl Confirm 01/09/17 23:38 Cardizem Iv 50 Mg/10 Ml Administered 01/09/17 23:39 Dose 50 mg IV .STK-MED ONE Lab/Rad Data: Laboratory Result Diagrams 01/09/17 23:38 01/09/17 23:38 Laboratory Results 01/09/17 01/09/17 01/09/17 Range/Units 23:38 23:38 23:38 WBC (4.0-10.5) K/mm3 RBC (4.1-5.4) M/mm3 Hgb (12.0-16.0) gm/dl Hct (35-47) % MCV (78-100) fl MCH (26-32) pg MCHC (32-36) g/dl RDW (11.5-14.0) % Plt Count (150-450) K/mm3 MPV (6-9.5) fl Gran % (36.0-66.0) % Lymphocytes % (24.0-44.0) % Monocytes % (0.0-12.0) % Eosinophils % (0.00-5.0) % Basophils % (0.0-0.4) % Basophils # (0-0.4) INR 0.96 (0.8-3.0) APTT 34.9 (25.3-37.0) SECONDS Sodium 140 (136-145) mEq/L Potassium 4.2 (3.5-5.1) mEq/L Chloride 102 (98-107) mEq/L Carbon Dioxide 27.5 (21-32) mEq/L Anion Gap 14.3 (5-15) MEQ/L BUN 39 H (9-20) mg/dL Creatinine 1.74 H (0.55-1.30) mg/dl Estimated GFR 31 ML/MIN Glucose 190 H (70-110) MG/DL Calcium 8.8 (8.5-10.1) mg/dL Magnesium 2.3 (1.8-2.4) mg/dL Total Bilirubin 0.40 (0.2-1.0) mg/dL AST 41 H (15-37) U/L ALT 28 (12-78) U/L Alkaline Phosphatase 115 (46-116) U/L Troponin I < 0.017 (0.000-0.056) ng/ml NT-Pro-B Natriuret Pep 344 H (0-125) pg/ml Serum Total Protein 7.7 (6.4-8.2) gm/dL Albumin 3.2 L (3.4-5.0) g/dL Amylase 47 (25-115) U/L Lipase 110 (73-393) U/L /03/20 Range/Units 23:38 WBC 6.1 (4.0-10.5) K/mm3 RBC 4.22 (4.1-5.4) M/mm3 Hgb 13.5 (12.0-16.0) gm/dl Hct 43.9 (35-47) % MCV 104.0 H (78-100) fl MCH 32.0 (26-32) pg MCHC 30.8 L (32-36) g/dl RDW 15.2 H (11.5-14.0) % Plt Count 157 (150-450) K/mm3 MPV 9.7 H (6-9.5) fl Gran % 59.2 (36.0-66.0) % Lymphocytes % 28.8 (24.0-44.0) % Monocytes % 8.3 (0.0-12.0) % Eosinophils % 3.4 (0.00-5.0) % Basophils % 0.3 (0.0-0.4) % Basophils # 0.02 (0-0.4) INR (0.8-3.0) APTT (25.3-37.0) SECONDS Sodium (136-145) mEq/L Potassium (3.5-5.1) mEq/L Chloride (98-107) mEq/L Carbon Dioxide (21-32) mEq/L Anion Gap (5-15) MEQ/L BUN (9-20) mg/dL Creatinine (0.55-1.30) mg/dl Estimated GFR ML/MIN Glucose (70-110) MG/DL Calcium (8.5-10.1) mg/dL Magnesium (1.8-2.4) mg/dL Total Bilirubin (0.2-1.0) mg/dL AST (15-37) U/L ALT (12-78) U/L Alkaline Phosphatase (46-116) U/L Troponin I (0.000-0.056) ng/ml NT-Pro-B Natriuret Pep (0-125) pg/ml Serum Total Protein (6.4-8.2) gm/dL Albumin (3.4-5.0) g/dL Amylase (25-115) U/L Lipase (73-393) U/L - Progress Discussed with Dr.: Other (SPOKE WITH DR PORTILLO(COVERING DATA SECURITY ANALYST FOR DR LEARY)(0020) WHO ACCEPTED PT FOR TRANSFER TO [facility] A DIRECT ADMISSION.) - Departure Time of Disposition: 00:30 Departure Disposition: Transfer ([facility]) Clinical Impression: CHEST PAIN, A.FIB WITH RVR Condition: Serious Critical Care Time: Yes Critical Care Time(excluding separately billable procedures): 30-74 minutes Referrals: IGLESIA DE LEON [Primary Care Provider] -
[2017-01-09] MEDS ORDERED: Sodium Chloride 0.9% 1000 ML 1,000 ML ONE (23:37)
[2017-01-09] MEDS ORDERED: CARDIZEM DRIP 100 MG/100 ML D5W 0 ML IV ONE (23:38)
[2017-01-09 23:44] LABS: BASOPHIL % 0.3 % (0.0-0.4); Eosinophil % 3.4 % (0.00-5.0); Granulocytes % 59.2 % (36.0-66.0); Lymphocytes % 28.8 % (24.0-44.0); Mean Platelet Volume 9.7 fl (6-9.5); Monocytes % 8.3 % (0.0-12.0); Platelet Count 157 K/mm3 (150-450); Red Blood Count 4.22 M/mm3 (4.1-5.4); Red Cell Distribution Width 15.2 % (11.5-14.0); White Blood Count 6.1 K/mm3 (4.0-10.5)
[2017-01-09] MEDS ORDERED: Sodium Chloride 0.9% 1000 ML 1,000 ML IV SCH (23:45)
[2017-01-09 23:54] LABS: INR 0.96 (0.8-3.0); PROTIME 10.8 SECONDS (9.95-12.35)
[2017-01-09 23:57] LABS: PTT 34.9 SECONDS (25.3-37.0)
[2017-01-10 00:11] LABS: ALBUMIN 3.2 g/dL (3.4-5.0); ANION GAP 14.3 MEQ/L (5-15); BILIRUBIN,TOTAL 0.4 mg/dL (0.2-1.0); Carbon Dioxide 27.5 mEq/L (21-32); MAGNESIUM 2.3 mg/dL (1.8-2.4); Potassium 4.2 mEq/L (3.5-5.1); Total Protein 7.7 gm/dL (6.4-8.2)
[2017-01-10] MEDS ORDERED: Lanoxin 0.5 MG/2 ML INJECTION ONE (00:24)
[2017-01-10] MEDS ORDERED: Lanoxin 0.5 MG/2 ML INJECTION IV ONE (00:26)
[2017-01-10 00:27] VITALS: O2SAT 94
[2017-01-10] MEDS ORDERED: TYLENOL 325 MG PO ONE (00:30)
[2017-01-10] MEDS ORDERED: TYLENOL EXTRA STRENGTH 500 MG ONE (00:31)
[2017-01-10] MEDS ORDERED: TYLENOL 325 MG ONE (00:40)
[2017-01-10 01:10] VITALS: BP 110/62; PULSE 140
--- NOTE | 2017-01-10 09:10 | XRAY ---
Indication: Chest pain. Comparison: December 24, 2016. Portable apical lordotic chest unchanged again with right base infiltrate/atelectasis, scattered calcified granulomas, cardiomegaly, known descending aorta aneurysm, bilateral carotid endarterectomy, and bony degenerative changes. No new/acute findings.
== END 2017-01-10 02:02 | disposition short-term general hospital (02) ==
LOC: ED 23:26
DX: R07.89 Other chest pain (principal); R42 Dizziness and giddiness; R51 Headache; R61 Generalized hyperhidrosis; E78.00 Pure hypercholesterolemia, unspecified; I10 Essential (primary) hypertension; E11.9 Type 2 diabetes mellitus without complications; I48.91 Unspecified atrial fibrillation; Z79.899 Other long term (current) drug therapy
CPT/HCPCS: 36000; 36415; 71010; 80053; 82150; 83690; 83735; 83880; 84484; 85025; 85610; 85730; 93005; 93041; 96360; 96361; 96374; 96375; 99285; J1160; A9270-GY

== ENCOUNTER 2017-09-06 22:21 | Inpatient (IN) | payer MEDICARE ==
[2017-09-06] MEDS ORDERED: DUONEB 0.5-3 MG/3 ml Neb IH ONE ×2 (22:51→23:01)
[2017-09-06] MEDS ORDERED: BUMEX 1 MG IV STA (22:53)
--- NOTE | 2017-09-06 22:53 | ERPHSYRPT ---
- History of Present Illness Time Seen by Provider: 09/06/17 22:40 Source: patient Exam Limitations: clinical condition Patient Subjective Stated Complaint: SOB Triage Nursing Assessment: Pt states increased SOB "recently" but worsening tonight at about 1900. Pt also states episodes of epistaxis. Pt states she begins to get SOB when she leaves her home and states she believes it may be anxiety. Pt states she left her house tonight and began to get SOB, called EMS and came to ED. Physician History: PATIENT WITH A HISTORY OF COPD, CHF COMPLAINS OF INCREASING DYSPNEA OVER 1 WEEK. DYSPNEA IS WORSE UPON EXERTION OR SUPINE POSITION. SLEEPS IN A CHAIR BECAUSE IT IS EASIER TO BREATH. DENIES COUGH, CHEST PAIN, DIAPHORESIS OR PALPITATIONS. Timing/Duration: week(s) Activities at Onset: activity Severity of Dyspnea-Max: moderate Severity of Dyspnea-Current: moderate Possible Cause: occasional episodes Modifying Factors: Improves With: exertion Associated Symptoms: ankle swelling, leg swelling International travel in last 2 weeks: No Allergies/Adverse Reactions: codeine Allergy (Verified 01/09/17 23:52) Penicillins Allergy (Verified 01/09/17 23:52) Sulfa (Sulfonamide Antibiotics) Allergy (Verified 01/09/17 23:52) hydromorphone [From Dilaudid] Adverse Reaction (Verified 01/09/17 23:52) Home Medications: Clopidogrel Bisulfate [Plavix] 75 mg PO DAILY 12/24/16 [History] Furosemide 40 mg [Lasix 40 MG] 40 mg PO TID 12/24/16 [History] Pramipexole Di-HCl [Mirapex] 1 mg PO BID 12/24/16 [History] Omeprazole 20 MG [Prilosec 20 mg] 20 mg PO DAILY 12/25/16 [History] Rosuvastatin Calcium [Crestor] 10 mg PO HS 12/25/16 [History] Acetaminophen 500 mg [Tylenol Extra Strength 500 mg] 500 mg PO Q6H PRN PRN 09/07/17 [History] Apixaban [Eliquis] 2.5 mg PO BID 09/07/17 [History] Clonazepam 0.5 mg PO BID PRN PRN 09/07/17 [History] Imipramine HCl 50 mg PO HS 09/07/17 [History] Ketorolac Tromethamine 1 drop OP QID 09/07/17 [History] Losartan Potassium 25 mg PO DAILY 09/07/17 [History] Potassium Chloride 10 Meq Tab* [Klor Con 10 MEQ] 10 meq PO BID 09/07/17 [ History] Sitagliptin Phosphate [Januvia] 100 mg PO DAILY 09/07/17 [History] Tobramycin 1 drop OP QID 09/07/17 [History] Hx Tetanus, Diphtheria Vaccination/Date Given: Yes Hx Influenza Vaccination/Date Given: Yes Hx Pneumococcal Vaccination/Date Given: Yes Immunizations Up to Date: Yes - Review of Systems Constitutional: No Fever, No Chills Eyes: No Symptoms Ears, Nose, & Throat: No Symptoms Respiratory: Dyspnea, Dyspnea on Exertion (BHATIA), No Cough Cardiac: No Symptoms, No Chest Pain, No Edema, No Syncope Abdominal/Gastrointestinal: No Symptoms, No Abdominal Pain, No Nausea, No Vomiting, No Diarrhea Genitourinary Symptoms: No Symptoms, No Dysuria Musculoskeletal: Other (SWELLING LEGS), No Back Pain, No Neck Pain Skin: No Rash Neurological: No Dizziness, No Focal Weakness, No Sensory Changes Psychological: No Symptoms Endocrine: No Symptoms All Other Systems: Reviewed and Negative - Past Medical History Pertinent Past Medical History: Yes Neurological History: No Pertinent History ENT History: Cataracts Cardiac History: Aneurysm, High Cholesterol, Hypertension Respiratory History: CHF, COPD, Pneumonia Endocrine Medical History: No Pertinent History, Diabetes Type II Musculoskeletal History: Arthritis GI Medical History: GERD, Hernia History: Other Psycho-Social History: Depression Female Reproductive Disorders: No Pertinent History - Past Surgical History Past Surgical History: Yes Neuro Surgical History: No Pertinent History Cardiac: Vascular Surgery Respiratory: No Pertinent History Gastrointestinal: Appendectomy Genitourinary: No Pertinent History Musculoskeletal: No Pertinent History Female Surgical History: Hysterectomy Other Surgical History: cystocele. rectocele. carotidendarectomy. cataract surgery scheduled for 01/01 - Social History Smoking Status: Former smoker Exposure to second hand smoke: No Drug Use: none Patient Lives Alone: Yes - Female History Hx Now: No - Nursing Vital Signs Nursing Vital Signs: Initial Vital Signs Temperature 98.2 F 09/06/17 22:23 Pulse Rate 76 09/06/17 22:23 Respiratory Rate 16 09/06/17 22:23 Blood Pressure 155/80 02/03/18 22:23 O2 Sat by Pulse Oximetry 90 L 09/06/17 22:23 Pain Scale Pain Intensity 0 - Physical Exam General Appearance: mild distress Eye Exam: PERRL/EOMI Neck Exam: normal inspection, supple Respiratory Exam: crackles/rales (BIBASILAR RIGHT> LEFT) Cardiovascular/Chest Exam: normal heart sounds, regular rate/rhythm Abdominal/Gastrointestinal Exam: soft, normal bowel sounds, tenderness Extremity Exam: swelling (2+PITTING EDEMA) Peripheral Pulses Exam: carotid (R): 2+, carotid (L): 2+, femoral (R): 2+, femoral (L): 2+, dorsalis-pedis (R): 2+, dorsalis-pedis (L): 2+ Neurologic Exam: alert Skin Exam: normal color SpO2 Interpretation: borderline oxygenation SpO2: 90 Oxygen Delivery: Nasal Cannula (PULSE OX 94% AFTER COUGH DEEP BREATHING) - Course EKG Interpreted by Me: RATE, Sinus Rhythm, NORMAL AXIS (RATE 71) - Radiology Exams Chest X-ray Interpretation: Interpreted by me (RIGHT MIDDLE LOBE, LOWER LOBE INFILTRATES, LEFT BASILAR INFILTRATE VS ATELECTASIS, RULE VENOUS HILAR CONGESTION) Ordered Tests: Medication Summary Discontinued Medications Generic Name Dose Route Start Last Admin Trade Name Freq PRN Reason Stop Dose Admin Acetaminophen 650 mg 09/07/17 04:56 09/07/17 04:59 Tylenol 325 Mg PO 10/07/17 04:55 650 mg Q6H PRN PRN Administration PAIN AND/OR FEVER Acetaminophen 500 mg 09/07/17 13:05 09/09/17 07:36 Tylenol Extra Strength 500 Mg PO 10/07/17 13:04 500 mg Q6H PRN PRN Administration PAIN Hydrocodone Bitart/Acetaminophen 1 tab 09/08/17 09:57 09/09/17 00:12 [place] 5/325 Mg PO 09/13/17 09:56 1 tab Q4H PRN PRN Administration PAIN Albuterol/Ipratropium Confirm 09/06/17 22:51 Duoneb 0.5-3 Mg/3 Ml Neb Administered 09/06/17 22:52 Dose 3 ml IH .STK-MED ONE Albuterol/Ipratropium 3 ml 09/06/17 23:01 09/06/17 23:06 Duoneb 0.5-3 Mg/3 Ml Neb IH 09/06/17 23:02 3 ml STAT ONE Administration Albuterol/Ipratropium 3 ml 09/07/17 03:00 09/09/17 11:00 Duoneb 0.5-3 Mg/3 Ml Neb IH 10/07/17 02:59 3 ml Q4HRT NORRIS Administration Apixaban 2.5 mg 09/07/17 13:00 09/09/17 10:18 Eliquis PO 10/07/17 12:59 2.5 mg BID NORRIS Administration Aspirin 81 mg 09/07/17 10:00 09/09/17 10:18 Ecotrin 81 Mg PO 10/07/17 09:59 81 mg DAILY NORRIS Administration Bumetanide 2 mg 09/06/17 22:53 09/06/17 23:18 Bumex 1 Mg IV 09/06/17 22:54 2 mg STAT STA Administration Bumetanide Confirm 09/06/17 23:18 Bumex 1 Mg Administered 09/06/17 23:19 Dose 1 mg .ROUTE .STK-MED ONE Bumetanide Confirm 09/06/17 23:19 Bumex 1 Mg Administered 09/06/17 23:20 Dose 1 mg .ROUTE .STK-MED ONE Bumetanide 1 mg 09/07/17 01:00 09/07/17 03:18 Bumex 1 Mg IV 10/07/17 00:59 Not Given Q12H NORRIS Bumetanide 1 mg 09/07/17 10:00 09/09/17 10:18 Bumex 1 Mg IV 10/07/17 00:59 1 mg Q12HT NORRIS Administration Clonazepam 0.5 mg 09/07/17 13:05 09/09/17 00:12 Klonopin 0.5 Mg PO 10/07/17 13:04 0.5 mg BID PRN PRN Administration ANXIETY Clopidogrel Bisulfate 75 mg 09/07/17 13:00 09/09/17 10:18 Plavix 75 Mg Tablet PO 10/07/17 12:59 75 mg DAILY NORRIS Administration Diltiazem HCl 10 mg 09/07/17 20:14 09/07/17 20:26 Cardizem Iv 50 Mg/10 Ml IV 09/07/17 20:15 10 mg STAT ONE Administration Levofloxacin/Dextrose 500 mg in 100 mls @ 100 mls/hr 09/07/17 01:03 09/07/17 01:05 Levofloxacin 500mg/100ml D5w IV 09/07/17 02:02 100 mls/hr STAT STA Administration Levofloxacin/Dextrose Confirm 09/07/17 01:05 Levofloxacin 500mg/100ml D5w Administered 09/07/17 01:06 Dose 500 mg in 100 mls @ ud IV .STK-MED ONE Levofloxacin/Dextrose 250 mg in 50 mls @ 100 mls/hr 09/07/17 22:00 09/08/17 22:10 Levaquin 250mg/50ml D5w IV 10/07/17 21:59 100 mls/hr QPM NORRIS Administration Diltiazem HCl 100 mls @ 5 mls/hr 09/07/17 20:12 09/07/17 20:41 Cardizem Drip 100 Mg/100 Ml D5w IV 10/07/17 20:11 5 mg/hr .Q20H PRN 5 mls/hr HEART RATE/ A-FIB Administration Protocol 5 MG/HR Dextrose Confirm 09/07/17 20:23 D5w 100ml Mini Bag 100 Ml Administered 09/07/17 20:24 Dose 100 mls @ ud IV .STK-MED ONE Insulin Aspart 0 unit 09/08/17 23:00 09/09/17 12:12 Novolog Insulin SQ 10/08/17 22:59 3 unit UD PRN Administration HYPERGLYCEMIA Ketorolac Tromethamine 0 ml 09/07/17 13:00 09/09/17 10:19 Acular Opth Lizet OP 09/09/17 23:00 5 ml QID NORRIS Administration Levalbuterol HCl 1.25 mg 09/07/17 01:00 09/08/17 06:50 Xopenex 1.25 Mg/0.5 Ml Ud Nebule IH 10/07/17 00:59 1.25 mg Q2H/PRN PRN Administration Losartan Potassium 25 mg 09/07/17 13:00 09/09/17 10:19 Cozaar 50 Mg PO 10/07/17 12:59 25 mg DAILY NORRIS Administration Metformin HCl 500 mg 09/07/17 08:00 09/07/17 08:22 Glucophage 500 Mg PO 10/07/17 07:59 Not Given BIDWM NORRIS Metoprolol Tartrate 50 mg 09/07/17 10:00 09/07/17 19:11 Lopressor 50 Mg PO 10/07/17 09:59 50 mg BID NORRIS Administration Metoprolol Tartrate 25 mg 09/07/17 10:00 09/07/17 19:12 Lopressor 25mg Tab PO 10/07/17 09:59 25 mg BID NORRIS Administration Metoprolol Tartrate 25 mg 09/07/17 20:16 09/07/17 20:37 Lopressor 25mg Tab PO 09/07/17 20:17 25 mg STAT ONE Administration Metoprolol Tartrate 100 mg 09/07/17 22:00 09/07/17 23:58 Lopressor 50 Mg PO 10/07/17 21:59 Not Given BID NORRIS Metoprolol Tartrate 100 mg 09/08/17 10:00 09/09/17 10:18 Lopressor 50 Mg PO 10/08/17 09:59 100 mg BID NORRIS Administration Morphine Sulfate Confirm 09/07/17 19:21 Morphine Sulfate 2 Mg Inj Administered 09/07/17 19:22 Dose 2 mg .ROUTE .STK-MED ONE Morphine Sulfate 2 mg 09/07/17 19:27 09/07/17 19:25 Morphine Sulfate 2 Mg Inj IV 09/12/17 19:26 2 mg Q1H/PRN PRN Administration PAIN Nitroglycerin Confirm 09/07/17 19:21 Nitrostat 0.4 Mg Tablet Administered 09/07/17 19:22 Dose 0.4 mg SL .STK-MED ONE Nitroglycerin 0.4 mg 09/07/17 19:27 09/07/17 19:35 Nitrostat 0.4 Mg Tablet SL 10/07/17 19:26 0.4 mg Q5MIN PRN MR X 3 PRN Administration CHEST PAIN Nitroglycerin 1 gm 09/07/17 22:00 09/09/17 11:39 Nitro-Bid 2% Ud Packets TOP 10/07/17 21:59 Not Given Q12HT NORRIS Ondansetron HCl 4 mg 09/07/17 20:09 09/07/17 22:09 Zofran 4 Mg/2 Ml Vial IV 10/07/17 20:08 4 mg Q4H PRN PRN Administration NAUSEA/VOMITING Pantoprazole Sodium 40 mg 09/07/17 13:00 09/09/17 10:18 Protonix 40mg Tablet PO 10/07/17 12:59 40 mg DAILY NORRIS Administration Potassium Chloride 10 meq 09/07/17 13:00 09/09/17 10:18 Klor Con 10 Meq PO 10/07/17 12:59 10 meq BID NORRIS Administration Pramipexole Dihydrochloride 1 mg 09/07/17 13:00 09/09/17 10:17 Mirapex 0.5 Mg Tablet PO 10/07/17 12:59 1 mg BID NORRIS Administration Prednisone 40 mg 09/08/17 13:21 09/08/17 13:42 Deltasone 20 Mg PO 09/08/17 13:22 40 mg STAT ONE Administration Pregabalin 75 mg 09/07/17 10:00 09/09/17 10:18 Lyrica 75 Mg Cap PO 10/07/17 09:59 75 mg TID NORRIS Administration Simvastatin 20 mg 09/07/17 22:00 09/08/17 22:06 Zocor 20mg PO 10/07/17 21:59 20 mg HS NORRIS Administration Sitagliptin Phosphate 100 mg 09/07/17 13:00 09/09/17 10:18 Januvia 50 Mg PO 10/07/17 12:59 100 mg DAILY NORRIS Administration Tobramycin Sulfate 0 ml 09/07/17 13:00 09/09/17 10:19 Tobrex Eye Drops 5 Ml OP 09/09/17 23:00 5 ml QID NORRIS Administration Lab/Rad Data: Laboratory Result Diagrams 09/06/17 23:30 09/06/17 23:30 Laboratory Results 09/06/17 09/06/17 09/06/17 Range/Units 23:55 23:30 23:30 WBC (4.0-10.5) K/mm3 RBC (4.1-5.4) M/mm3 Hgb (12.0-16.0) gm/dl Hct (35-47) % MCV (78-100) fl MCH (26-32) pg MCHC (32-36) g/dl RDW (11.5-14.0) % Plt Count (150-450) K/mm3 MPV (6-9.5) fl Gran % (36.0-66.0) % Lymphocytes % (24.0-44.0) % Monocytes % (0.0-12.0) % Eosinophils % (0.00-5.0) % Basophils % (0.0-0.4) % Basophils # (0-0.4) INR 1.21 (0.8-3.0) Sodium (136-145) mEq/L Potassium (3.5-5.1) mEq/L Chloride (98-107) mEq/L Carbon Dioxide (21-32) mEq/L Anion Gap (5-15) MEQ/L BUN (9-20) mg/dL Creatinine (0.55-1.30) mg/dl Estimated GFR ML/MIN Glucose (70-110) MG/DL Calcium (8.5-10.1) mg/dL Total Bilirubin (0.2-1.0) mg/dL AST (15-37) U/L ALT (12-78) U/L Alkaline Phosphatase (46-116) U/L Troponin I 0.058 H* (0.000-0.056) ng/ml NT-Pro-B Natriuret Pep (0-125) pg/ml Serum Total Protein (6.4-8.2) gm/dL Albumin (3.4-5.0) g/dL Influenza Type A Ag NEGATIVE (NEGATIVE) Influenza Type B Ag NEGATIVE (NEGATIVE) RSV (PCR) NEGATIVE (Negative) 09/06/17 09/06/17 Range/Units 23:30 23:30 WBC 8.9 (4.0-10.5) K/mm3 RBC 3.70 L (4.1-5.4) M/mm3 Hgb 11.1 L (12.0-16.0) gm/dl Hct 37.7 (35-47) % MCV 101.9 H (78-100) fl MCH 30.0 (26-32) pg MCHC 29.4 L (32-36) g/dl RDW 16.2 H (11.5-14.0) % Plt Count 112 L (150-450) K/mm3 MPV 10.6 H (6-9.5) fl Gran % 73.7 H (36.0-66.0) % Lymphocytes % 18.4 L (24.0-44.0) % Monocytes % 6.0 (0.0-12.0) % Eosinophils % 1.7 (0.00-5.0) % Basophils % 0.2 (0.0-0.4) % Basophils # 0.02 (0-0.4) INR (0.8-3.0) Sodium 144 (136-145) mEq/L Potassium 4.2 (3.5-5.1) mEq/L Chloride 107 (98-107) mEq/L Carbon Dioxide 28.7 (21-32) mEq/L Anion Gap 12.9 (5-15) MEQ/L BUN 33 H (9-20) mg/dL Creatinine 1.52 H (0.55-1.30) mg/dl Estimated GFR 36 ML/MIN Glucose 118 H (70-110) MG/DL Calcium 8.2 L (8.5-10.1) mg/dL Total Bilirubin 0.30 (0.2-1.0) mg/dL AST 45 H (15-37) U/L ALT 46 (12-78) U/L Alkaline Phosphatase 99 (46-116) U/L Troponin I (0.000-0.056) ng/ml NT-Pro-B Natriuret Pep 3940 H (0-125) pg/ml Serum Total Protein 7.4 (6.4-8.2) gm/dL Albumin 3.2 L (3.4-5.0) g/dL Influenza Type A Ag (NEGATIVE) Influenza Type B Ag (NEGATIVE) RSV (PCR) (Negative) - Progress Progress: unchanged Progress Note: 09/06/17 23:30 SALINE LOCK BUMEX 2MG IV, AFTER 2 SETS AFTER BLOOD CULTURES ZITHROMAX 500MG, ROCEPHIN 1GM IVPB Blood Culture(s) Obtained: Yes Antibiotics given: Yes Discussed with Dr.: Segura (DISCUSSED WITH DR SEGURA AT 0040 FOR ADMIT) - Departure Time of Disposition: 12:00 Departure Disposition: In-patient Admission Clinical Impression: PNEUMONIA, EXACERBATION OF CHRONIC CONGESTIVE HEART Condition: Stable Critical Care Time: No
[2017-09-06] MEDS ORDERED: BUMEX 1 MG ONE ×2 (23:18→23:19)
[2017-09-06 23:41] LABS: BASOPHIL % 0.2 % (0.0-0.4); Basophil (Absolute #) 0.02 (0-0.4); Eosinophil % 1.7 % (0.00-5.0); Eosinophil (Absolute #) 0.15 (0-0.5); Granulocyte Absolute (ANC) 6.55 (1.4-6.9); Granulocytes % 73.7 % (36.0-66.0); Hematocrit 37.7 % (35-47); Hemoglobin 11.1 gm/dl (12.0-16.0); Lymphocyte (Absolute #) 1.63 (1.0-4.6); Lymphocytes % 18.4 % (24.0-44.0); Mean Cell Volume 101.9 fl (78-100); Mean Corpuscular Hgb Concent. 29.4 g/dl (32-36); Mean Platelet Volume 10.6 fl (6-9.5); Monocyte (Absolute #) 0.53 (0.0-1.3); Platelet Count 112 K/mm3 (150-450); Red Cell Distribution Width 16.2 % (11.5-14.0); White Blood Count 8.9 K/mm3 (4.0-10.5)
[2017-09-06 23:52] LABS: INR 1.21 (0.8-3.0)
[2017-09-07 00:08] LABS: ALBUMIN 3.2 g/dL (3.4-5.0); ANION GAP 12.9 MEQ/L (5-15); BILIRUBIN,TOTAL 0.3 mg/dL (0.2-1.0); Calcium 8.2 mg/dL (8.5-10.1); Carbon Dioxide 28.7 mEq/L (21-32); Creatinine 1 1.52 mg/dl (0.55-1.30); Potassium 4.2 mEq/L (3.5-5.1); Total Protein 7.4 gm/dL (6.4-8.2)
[2017-09-07] MEDS ORDERED: BUMEX 1 MG IV SCH (01:00)
[2017-09-07 01:02] LABS: INFLUENZA A NEGATIVE (NEGATIVE); INFLUENZA B NEGATIVE (NEGATIVE); RESPIRATORY SYNCTIAL VIRUS NEGATIVE (Negative)
[2017-09-07] MEDS ORDERED: Levofloxacin 500MG/100ML D5W 500 MG/100 ML BAG IV STA (01:03)
[2017-09-07] MEDS ORDERED: Levofloxacin 500MG/100ML D5W 500 MG/100 ML BAG IV ONE (01:05)
[2017-09-07] MEDS: DUONEB 0.5-3 MG/3 ml Neb IH SCH ×5 (02:54→20:03)
[2017-09-07] MEDS: LYRICA 75 MG CAP PO SCH ×4 (03:14→22:08)
[2017-09-07] MEDS ORDERED: TYLENOL 325 MG PO PRN (04:56)
[2017-09-07 06:04] LABS: Hematocrit 35.7 % (35-47); Hemoglobin 10.5 gm/dl (12.0-16.0); Mean Cell Volume 101.1 fl (78-100); Mean Corpuscular Hemoglobin 29.7 pg (26-32); Mean Corpuscular Hgb Concent. 29.4 g/dl (32-36); Mean Platelet Volume 10.7 fl (6-9.5); Platelet Count 111 K/mm3 (150-450); Red Blood Count 3.53 M/mm3 (4.1-5.4); White Blood Count 6.6 K/mm3 (4.0-10.5)
[2017-09-07 06:27] LABS: ANION GAP 11.8 MEQ/L (5-15); Carbon Dioxide 28.9 mEq/L (21-32); Creatinine 1 1.28 mg/dl (0.55-1.30); Potassium 3.6 mEq/L (3.5-5.1)
[2017-09-07] MEDS ORDERED: Glucophage 500 MG PO SCH (08:00)
--- NOTE | 2017-09-07 08:50 | XRAY ---
Indication: Dyspnea. Comparison: January 09, 2017. Portable chest demonstrates new right mid to lower lung and lesser degree left mid lung infiltrate/atelectasis. No consolidation or large effusion. Heart remains enlarged with new left-sided dual-lead pacemaker. Bony thorax intact again with mild osteopenia, degenerative changes, and left carotid endarterectomy. Impression: 1. New bilateral infiltrates/atelectasis. Correlate clinically. 2. Stable cardiomegaly with new left-sided pacemaker/leads.
[2017-09-07] MEDS: Lopressor 50 MG PO SCH ×2 (10:33→19:11)
[2017-09-07] MEDS: Lopressor 25MG Tab PO SCH ×2 (10:34→19:12)
[2017-09-07] MEDS: BUMEX 1 MG IV SCH ×2 (10:34→22:08)
[2017-09-07] MEDS: ECOTRIN 81 MG PO SCH (10:34)
[2017-09-07] MEDS ORDERED: Levofloxacin 500MG/100ML D5W 500 MG/100 ML BAG IV SCH (11:00)
[2017-09-07] MEDS ORDERED: Klonopin 0.5 MG PO PRN (13:05)
[2017-09-07] MEDS ORDERED: MEDICATION INTERVENTION MC PRN (13:17)
[2017-09-07] MEDS: PLAVIX 75 MG Tablet PO SCH (14:02)
[2017-09-07] MEDS: Cozaar 50 MG PO SCH (14:02)
[2017-09-07] MEDS: Mirapex 0.5 MG Tablet PO SCH ×2 (14:03→22:09)
[2017-09-07] MEDS: Protonix 40MG Tablet PO SCH (14:03)
[2017-09-07] MEDS: Januvia 50 MG PO SCH (14:04)
[2017-09-07] MEDS: Klor Con 10 MEQ PO SCH ×2 (14:04→22:08)
[2017-09-07] MEDS: Tobrex EYE DROPS 5 ML OP SCH ×3 (14:12→22:10)
[2017-09-07] MEDS: Acular OPTH SOL OP SCH ×3 (14:13→22:11)
[2017-09-07] MEDS: ELIQUIS PO SCH ×2 (14:23→22:08)
[2017-09-07] MEDS ORDERED: Nitrostat 0.4 MG Tablet SL ONE (19:21)
[2017-09-07] MEDS ORDERED: MORPHINE SULFATE 2 MG INJ ONE (19:21)
[2017-09-07] MEDS: Nitrostat 0.4 MG Tablet SL PRN ×2 (19:25→19:35)
[2017-09-07] MEDS ORDERED: MORPHINE SULFATE 2 MG INJ IV PRN (19:27)
[2017-09-07] MEDS ORDERED: Zofran 4 MG/2 ML VIAL IV PRN (20:09)
[2017-09-07] MEDS ORDERED: CARDIZEM DRIP 100 MG/100 ML D5W 100 ML IV PRN (20:12)
[2017-09-07] MEDS ORDERED: Cardizem IV 50 MG/10 ML IV ONE (20:14)
[2017-09-07] MEDS ORDERED: Lopressor 25MG Tab PO ONE (20:16)
[2017-09-07] MEDS ORDERED: D5w 100ML Mini Bag 100 ML 100 ML IV ONE (20:23)
[2017-09-07] MEDS: NITRO-BID 2% UD PACKETS TOP SCH (20:38)
[2017-09-07] MEDS ORDERED: Lopressor 50 MG PO SCH (22:00)
[2017-09-07] MEDS ORDERED: IMIPRAMINE HCL 50 MG PO SCH (22:00)
[2017-09-07] MEDS ORDERED: NON-FORMULARY ITEM (Pramipexole Di-Hcl [Mirapex] 1 MG) PO SCH (22:00)
[2017-09-07] MEDS ORDERED: NON-FORMULARY ITEM (Rosuvastatin Calcium [Crestor] 10 MG) PO SCH (22:00)
[2017-09-07] MEDS: Levaquin 250MG/50ML D5W 250 MG/50 ML BAG IV SCH (22:07)
[2017-09-07] MEDS: ZOCOR 20MG PO SCH (22:08)
[2017-09-07] MEDS: Xopenex 1.25 MG/0.5 ML UD NEBULE IH PRN (22:51)
[2017-09-08] MEDS: TYLENOL EXTRA STRENGTH 500 MG PO PRN ×2 (02:15→09:41)
[2017-09-08 05:59] LABS: Risk Ratio 4.3
[2017-09-08] MEDS: Xopenex 1.25 MG/0.5 ML UD NEBULE IH PRN (06:50)
--- NOTE | 2017-09-08 07:49 | PCM.NOTE ---
Date and Time: 09/08/17744 Subjective Assessment: last night became sob and some pain in chest had developed afib rvr transferred to icu started on cardizem gtt after bolus and converted to paced rhythm feelin well ths am no pain Objective Exam General Appearance: no apparent distress, alert Neurologic Exam: alert, oriented x 3, cooperative, normal mood/affect, nml cerebellar function, sensation nml, No motor deficits Skin Exam: normal color, warm, dry Eye Exam: PERRL, EOMI, eyes nml inspection Ears, Nose, Throat Exam: normal ENT inspection, pharynx normal, moist mucous membranes Neck Exam: normal inspection, non-tender, supple, full range of motion Respiratory Exam: crackles/rales (left base), No respiratory distress Cardiovascular Exam: regular rate/rhythm, normal heart sounds, other (paced rhythm at 60) Gastrointestinal/Abdomen Exam: soft, No tenderness, No mass Extremity Exam: normal inspection, normal range of motion Back Exam: normal inspection, normal range of motion, No CVA tenderness, No vertebral tenderness Pelvic Exam: deferred Rectal Exam: deferred OBJECTIVE DATA Vital Signs: Vital Signs - 24 hr Temp Pulse Resp BP BP BP Pulse Ox 09/08/17 07:00 60 16 97 09/08/17 06:00 98.2 F 61 17 140/80 95 09/08/17 04:55 98.2 F 60 20 132/69 93 L 09/08/17 03:52 98.2 F 60 20 113/65 92 L 09/08/17 03:49 20 09/08/17 02:59 98.2 F 60 21 133/70 91 L 09/08/17 01:50 98.2 F 60 22 111/58 91 L 09/08/17 00:59 98.2 F 60 18 114/57 90 L 09/07/17 23:50 98.2 F 127 H 17 91/76 91 L 09/07/17 23:40 130 H 09/07/17 23:00 98.2 F 128 H 17 99/65 97 09/07/17 22:51 141 H 20 95 09/07/17 22:00 98.2 F 142 H 18 133/103 95 09/07/17 20:00 98.2 F 151 H 18 130/95 92 L 09/07/17 19:35 132 H 120/56 09/07/17 19:32 127 H 09/07/17 19:25 141/96 09/07/17 16:14 97.5 F 67 20 162/71 96 09/07/17 16:00 20 09/07/17 15:00 65 18 93 L 09/07/17 12:05 97.8 F 64 20 161/74 92 L 09/07/17 12:00 20 09/07/17 11:00 74 18 92 L 09/07/17 08:00 97.2 F 73 20 133/61 92 L Oxygen-Last 24 hours O2 Percentage 5 Liters = 40% O2 Percentage 5 Liters = 40% O2 Percentage 5 Liters = 40% O2 Percentage 5 Liters = 40% O2 Percentage 5 Liters = 40% O2 Percentage 5 Liters = 40% O2 Percentage 5 Liters = 40% O2 Percentage 6 Liters = 44% O2 Percentage 6 Liters = 44% O2 Percentage 2 Liters = 28% O2 Percentage 2 Liters = 28% O2 Percentage 4 Liters = 36% Oxygen Flowrate (L/min)-RT 4 Pain Assessment - Last Documented Pain Intensity 5 Pain Scale Used 0-10 Pain Scale Intake and Output: Intake & Output 09/05/17 09/06/17 09/07/17 09/08/17 11:59 11:59 11:59 11:59 Intake Total 1540 1080 Output Total 750 600 Balance 790 480 Weight 98 kg Lab Results: Accuchecks Date 09/07/17 Date 09/07/17 Date 09/07/17 Time 22:34 Time 16:30 Time 11:30 Accucheck Value: 150 Accucheck Value: 135 Accucheck Value: 177 Lab Results-Last 24 Hours 09/07/17 09/07/17 09/07/17 Range/Units 07:56 11:00 19:13 Troponin I 0.048 0.033 0.023 (0.000-0.056) ng/ml Triglycerides (30-200) mg/dL Cholesterol (100-200) mg/dL LDL Cholesterol (5-99) mg/dL HDL Cholesterol (35-60) mg/dL Heart Disease Risk Ratio 09/07/17 09/08/17 09/08/17 Range/Units 22:45 02:00 04:40 Troponin I 0.032 0.024 0.040 (0.000-0.056) ng/ml Triglycerides (30-200) mg/dL Cholesterol (100-200) mg/dL LDL Cholesterol (5-99) mg/dL HDL Cholesterol (35-60) mg/dL Heart Disease Risk Ratio 09/08/17 Range/Units 04:40 Troponin I (0.000-0.056) ng/ml Triglycerides 182 (30-200) mg/dL Cholesterol 150 (100-200) mg/dL LDL Cholesterol 85 (5-99) mg/dL HDL Cholesterol 35 (35-60) mg/dL Heart Disease Risk Ratio 4.3 Radiology Exams: Radiology Procedures Category Date Time Status ECHO W/2D AND DOPPLER [US] Routine Exams 09/08/17 Ordered Multi-Disciplinary Progress Notes: Multi-Disciplinary Progress Notes 09/07/17 13:50 Case Management Note by Pao Juarez DISCHARGE PLAN REVIEWED. PT CURRENTLY LIVES AT HOME BY SELF AND IS INDEPENDENT OF ALL ADL'S. PT IS HER OWN TRANSPORTATION AND HAS MEANS OF OBTAINING HER MEDICATIONS. USES [facility] FOR HER OXYGEN NEEDS AT HOME, CURRENTLY AT HOME ON 3- [address] L[address] [place]. PATIENT FEELS THAT SHE MAY NEED A NEBULIZER AT HOME AND WOULD LIKE TO HAVE THAT ARRANGED FOR HER. SHE ALSO HAS HAD 2 SLEEP STUDIES DONE AT [facility] AND HAS A CPAP MACHINE AT HOME THAT SHE DOES NOT USE, THAT SHE FEELS IT MIGHT BENEFIT HER TO USE. WOULD LIKE TO START AGAIN AND NEEDS MASK AND TUBING FOR SAME. THIS CAME FROM [facility]. PLAN TO D/C HOME TO PRE EPISODIC LEVEL OF FUNCTION. WILL CONTINUE TO MONITOR FOR ALL D/C NEEDS. Initialized on 09/07/17 13:50 - END OF NOTE Assessment/Plan (1) Atrial fibrillation with RVR Current Visit: Yes Status: Acute Assessment & Plan: converted to paced rhythm weaning cardizem gtt to off still on 5L nc O2 wean as tolerated ok to transfer to med surg when gtt fully d/c on 1/h now Code(s): I48.91 - UNSPECIFIED ATRIAL FIBRILLATION (2) Pneumonia Current Visit: Yes Status: Acute Assessment & Plan: on levaquin Code(s): J18.9 - PNEUMONIA, UNSPECIFIED ORGANISM (3) CHF (congestive heart failure) Current Visit: Yes Status: Acute Assessment & Plan: on bumex iv check lytes Code(s): I50.9 - HEART FAILURE, UNSPECIFIED (4) Acute and chronic respiratory failure with hypoxia Current Visit: Yes Status: Acute Code(s): J96.21 - ACUTE AND CHRONIC RESPIRATORY FAILURE WITH HYPOXIA (5) Type 2 diabetes mellitus Current Visit: Yes Status: Chronic (6) Coronary artery disease Current Visit: Yes Status: Chronic Code(s): I25.10 - ATHSCL HEART DISEASE OF [place] CORONARY ARTERY W/O ANG PCTRS
[2017-09-08 08:39] LABS: Hematocrit 38.9 % (35-47); Hemoglobin 11.3 gm/dl (12.0-16.0); Mean Cell Volume 102.6 fl (78-100); Mean Corpuscular Hemoglobin 29.8 pg (26-32); Platelet Count 120 K/mm3 (150-450); Red Blood Count 3.79 M/mm3 (4.1-5.4); Red Cell Distribution Width 16.2 % (11.5-14.0); White Blood Count 6.2 K/mm3 (4.0-10.5)
[2017-09-08 09:00] LABS: ALBUMIN 2.9 g/dL (3.4-5.0); ANION GAP 10.2 MEQ/L (5-15); BILIRUBIN,TOTAL 0.4 mg/dL (0.2-1.0); Carbon Dioxide 31.8 mEq/L (21-32); Creatinine 1 1.28 mg/dl (0.55-1.30); MAGNESIUM 1.8 mg/dL (1.8-2.4); TSH, 3RD Generation 3.418 mIU/L (0.358-3.740); Total Protein 6.9 gm/dL (6.4-8.2)
[2017-09-08] MEDS: DUONEB 0.5-3 MG/3 ml Neb IH SCH ×6 (09:12→23:26)
[2017-09-08] MEDS: Protonix 40MG Tablet PO SCH (09:29)
[2017-09-08] MEDS: Lopressor 50 MG PO SCH ×2 (09:29→22:06)
[2017-09-08] MEDS: Klor Con 10 MEQ PO SCH ×2 (09:29→22:06)
[2017-09-08] MEDS: PLAVIX 75 MG Tablet PO SCH (09:29)
[2017-09-08] MEDS: NITRO-BID 2% UD PACKETS TOP SCH ×2 (09:30→22:08)
[2017-09-08] MEDS: Tobrex EYE DROPS 5 ML OP SCH ×4 (09:30→22:08)
[2017-09-08] MEDS: ECOTRIN 81 MG PO SCH (09:30)
[2017-09-08] MEDS: BUMEX 1 MG IV SCH ×2 (09:30→22:08)
[2017-09-08] MEDS: Cozaar 50 MG PO SCH (09:30)
[2017-09-08] MEDS: Acular OPTH SOL OP SCH ×4 (09:31→22:09)
[2017-09-08] MEDS ORDERED: NON-FORMULARY ITEM (Omeprazole 20 Mg [Prilosec 20 Mg] 20 MG) PO SCH (10:00)
[2017-09-08] MEDS: ELIQUIS PO SCH ×2 (10:22→22:06)
[2017-09-08] MEDS: Januvia 50 MG PO SCH (10:22)
[2017-09-08] MEDS: Mirapex 0.5 MG Tablet PO SCH ×2 (10:23→22:06)
[2017-09-08] MEDS: LYRICA 75 MG CAP PO SCH ×3 (10:23→22:08)
[2017-09-08] MEDS: NORCO 5/325 MG PO PRN (10:28)
--- NOTE | 2017-09-08 12:40 | HP ---
CHIEF COMPLAINT: Shortness of breath. HISTORY OF PRESENT ILLNESS: The patient is a 72 year-old white female who reports she has been having problems with orthopnea and dyspnea. The patient does see Dr. Harmon. She reports she has an aneurysm at the base of the aorta that she has been following in [place] for. She has had stenting to her lower extremities but never had any stenting to her heart. The patient reports that she has been diagnosed with congestive heart failure and she does wear oxygen in the home anywhere from three to four liters. She does not check her saturations in the home. PAST MEDICAL/SURGICAL HISTORY: Otherwise significant for hyperlipidemia, hypertension, chronic obstructive pulmonary disease, diabetes mellitus type 2, gastroesophageal reflux disease, depression. HOME MEDICATIONS: Aspirin, Plavix, Lasix, metoprolol, Mirapex, Prilosec and Crestor. ALLERGIES: CODEINE, PENICILLIN, SULFA, DILAUDID. PHYSICAL EXAMINATION: Reveals an obese white female currently in no obvious distress. Her vital signs on admission showed temperature 98.2F, pulse 76, respiratory rate 16, blood pressure 155/80. O2 saturation 90% on supplemental oxygen per nasal cannula. HEENT: Normocephalic, atraumatic. Pupils equal round reactive to light. Extraocular movements intact. Oropharynx is pink and moist. NECK: Supple without lymphadenopathy, thyromegaly or JVD. CHEST: Essentially clear. HEART: Regular rate and rhythm without murmurs, rubs or gallops heard. ABDOMEN: Soft. No palpable masses. EXTREMITIES: Without clubbing, cyanosis or significant edema. NEUROLOGIC: The patient is alert and oriented x3 with no focal deficits. LAB DATA AND TESTS: Revealed initial EKG showing sinus rhythm. The first EKG 12 lead showing left axis deviation and borderline poor progression R-wave across precordial lead but no ST-T wave changes noted. The patient had a second EKG approximately an hour later showing what appeared to be atrial fibrillation with rapid ventricular response. Her lateral leads appeared to have ST segment depression and although the R-wave progression appeared to be more normal on that EKG, the rate was approximately 141 at that time. Chest x-ray showed new bibasilar infiltrates, stable cardiomegaly with left-sided pacemaker leads present. Her labs otherwise showed troponin to be 0.058. Her hemoglobin 11.1, white blood cell count 8,900, PLT 112,000. Influenza A, B and respiratory syncytial virus were all negative. International normalized ratio was 1.21. Her sugar was 118. BUN 33, creatinine 1.52. Electrolytes were normal. She had a ProBNP level of 3,940. ASSESSMENT: A patient with congestive heart failure, has been admitted to the hospital. The atrial fibrillation with rapid ventricular response has subsequently resolved. She will be obtaining an echocardiogram. She was placed on her usual home medications. We will be following her troponins. She was given Levaquin empirically for what appeared to be at least bronchitis and possible pneumonia.
[2017-09-08] MEDS ORDERED: DELTASONE 20 MG PO ONE (13:21)
[2017-09-08] MEDS: ZOCOR 20MG PO SCH (22:06)
[2017-09-08] MEDS: Levaquin 250MG/50ML D5W 250 MG/50 ML BAG IV SCH (22:10)
[2017-09-08] MEDS: NovoLOG Insulin SQ PRN (23:07)
[2017-09-09] MEDS: NORCO 5/325 MG PO PRN (00:12)
[2017-09-09] MEDS: DUONEB 0.5-3 MG/3 ml Neb IH SCH ×3 (03:50→11:00)
[2017-09-09] MEDS: TYLENOL EXTRA STRENGTH 500 MG PO PRN (07:36)
--- NOTE | 2017-09-09 08:02 | PCM.DS ---
Discharge Summary Date of Admission: 09/07/17 01:30 Admitting Physician: IGLESIA DE LEON Primary Care Provider: IGLESIA DE LEON Allergies Allergies codeine Allergy (Verified 01/09/17 23:52) Penicillins Allergy (Verified 01/09/17 23:52) Sulfa (Sulfonamide Antibiotics) Allergy (Verified 01/09/17 23:52) hydromorphone [From Dilaudid] Adverse Reaction (Verified 01/09/17 23:52) Hospital Summary - Hospital Course Hospital Course: she presented for increased difficulty breathing and was treated by DR. Segura for pneumonia with iv antibiotics. During the [place] she developed afib with rvr not responsive to initial measures and transferred to icu on cardizem gtt where her rate improved overnight. She was transferred back to [facility] and found to be experiencing the beginnings of gout with previous history of gout and she was given prednisone which caused worsening of her hyperglycemia. She was breathing better and feeling better. The prednisone did cause her to have increased shaking and difficulty sleeping and some euphoric mood but felt she was doing well. The prednisone was not continued. She had echocardiogram that showed normal systolic function. - Vitals & Intake/Output Vital Signs: Vital Signs Temperature 98 F 09/09/17 07:30 Pulse Rate 72 09/09/17 07:30 Respiratory Rate 16 09/09/17 07:30 Blood Pressure 134/71 09/09/17 07:30 O2 Sat by Pulse Oximetry 95 09/09/17 07:30 Oxygen-Last Documented O2 Percentage 4 Liters = 36% Intake & Output: Intake & Output 09/06/17 09/07/17 09/08/17 09/09/17 11:59 11:59 11:59 11:59 Intake Total 1540 1560 860 Output Total 750 600 300 Balance 790 960 560 Weight 98 kg 97.7 kg - Lab Result Diagrams: 09/08/17 05:00 09/08/17 04:40 Lab Results-Last 24 Hrs: Accuchecks Date 09/08/17 Date 09/08/17 Date 09/08/17 Time 22:00 Time 16:30 Time 11:30 Accucheck Value: 349 Accucheck Value: 151 Accucheck Value: 221 Lab Results-Last 24 Hours 09/08/17 09/08/17 09/08/17 Range/Units 04:40 05:00 05:00 WBC 6.2 (4.0-10.5) K/mm3 RBC 3.79 L (4.1-5.4) M/mm3 Hgb 11.3 L (12.0-16.0) gm/dl Hct 38.9 (35-47) % MCV 102.6 H (78-100) fl MCH 29.8 (26-32) pg MCHC 29.0 L (32-36) g/dl RDW 16.2 H (11.5-14.0) % Plt Count 120 L (150-450) K/mm3 MPV 11.0 H (6-9.5) fl Sodium 143 (136-145) mEq/L Potassium 4.0 (3.5-5.1) mEq/L Chloride 105 (98-107) mEq/L Carbon Dioxide 31.8 (21-32) mEq/L Anion Gap 10.2 (5-15) MEQ/L BUN 31 H (9-20) mg/dL Creatinine 1.28 (0.55-1.30) mg/dl Estimated GFR 44 ML/MIN Glucose 114 H (70-110) MG/DL Hemoglobin A1c (4.5-6.2) Calcium 8.0 L (8.5-10.1) mg/dL Magnesium 1.8 (1.8-2.4) mg/dL Total Bilirubin 0.40 (0.2-1.0) mg/dL AST 31 (15-37) U/L ALT 36 (12-78) U/L Alkaline Phosphatase 85 (46-116) U/L Troponin I 0.044 (0.000-0.056) ng/ml Serum Total Protein 6.9 (6.4-8.2) gm/dL Albumin 2.9 L (3.4-5.0) g/dL Triglycerides 182 (30-200) mg/dL Cholesterol 150 (100-200) mg/dL LDL Cholesterol 85 (5-99) mg/dL HDL Cholesterol 35 (35-60) mg/dL Heart Disease Risk Ratio 4.3 TSH 3rd Generation 3.418 (0.358-3.740) mIU/L 09/08/17 Range/Units 05:00 WBC (4.0-10.5) K/mm3 RBC (4.1-5.4) M/mm3 Hgb (12.0-16.0) gm/dl Hct (35-47) % MCV (78-100) fl MCH (26-32) pg MCHC (32-36) g/dl RDW (11.5-14.0) % Plt Count (150-450) K/mm3 MPV (6-9.5) fl Sodium (136-145) mEq/L Potassium (3.5-5.1) mEq/L Chloride (98-107) mEq/L Carbon Dioxide (21-32) mEq/L Anion Gap (5-15) MEQ/L BUN (9-20) mg/dL Creatinine (0.55-1.30) mg/dl Estimated GFR ML/MIN Glucose (70-110) MG/DL Hemoglobin A1c 7.4 H (4.5-6.2) Calcium (8.5-10.1) mg/dL Magnesium (1.8-2.4) mg/dL Total Bilirubin (0.2-1.0) mg/dL AST (15-37) U/L ALT (12-78) U/L Alkaline Phosphatase (46-116) U/L Troponin I (0.000-0.056) ng/ml Serum Total Protein (6.4-8.2) gm/dL Albumin (3.4-5.0) g/dL Triglycerides (30-200) mg/dL Cholesterol (100-200) mg/dL LDL Cholesterol (5-99) mg/dL HDL Cholesterol (35-60) mg/dL Heart Disease Risk Ratio TSH 3rd Generation (0.358-3.740) mIU/L Micro Results-Entire Visit: Accuchecks Date 09/08/17 Date 09/08/17 Date 09/08/17 Time 22:00 Time 16:30 Time 11:30 Accucheck Value: 349 Accucheck Value: 151 Accucheck Value: 221 - Radiology Exams Ordered Rad Exams-Entire Visit: Radiology Procedures Category Date Time Status ECHO W/2D AND DOPPLER [US] Routine Exams 09/08/17 07:44 Taken - Procedures and Test Procedures and Tests throughout Hospitalization: Therapy Orders & Screens 09/07/17 00:46 Oxygen NASAL CANNULA 4 lpm Comment: Diagnosis: Shortness of Breath 09/07/17 02:51 RT Screen per Nursing Assess ONCE Comment: Protocol Order Physician Instructions: Greater than 3 points order RT Admission Screen Reason For Exam: Triggered on Admission Diagnosis: Shortness of breath Diagnosis: Shortness of breath Pneumonia: Yes Home O2: Yes Asthma: No CHF: Yes Home CPAP/BIPAP: No Home Nebs/MDI: No Total Points: 11 ST Screen per Nursing Assess Comment: Protocol Order Physician Instructions: Greater than [address] Admission Screening Reason For Exam: Triggered on Admission Diagnosis: Shortness of breath CVA/Dyshpagia/Aphasia: No Cognitive Deficits: No Dehydration/Nutrition Deficit: No Reflux: Yes Oral-Motor Difficulties: No Pneumonia: Yes Intermediate Resident: No Total Points: 8 09/07/17 03:00 neb [Respiratory Nebulizer] Q4H Comment: Diagnosis: Shortness of breath 09/07/17 19:12 EKG STAT Comment: Diagnosis: Shortness of breath 09/08/17 07:50 EKG OM.NOW Comment: Diagnosis: Shortness of breath 09/09/17 05:00 EKG ONCE Comment: Diagnosis: Shortness of breath EKG Q8HX2,QAMX3,PRN Comment: Diagnosis: Shortness of breath Discharge Exam General Appearance: no apparent distress, alert Neurologic Exam: alert, oriented x 3, cooperative, normal mood/affect, nml cerebellar function, sensation nml, No motor deficits Skin Exam: normal color, warm, dry Eye Exam: PERRL, EOMI, eyes nml inspection Ears, Nose, Throat Exam: normal ENT inspection, pharynx normal, moist mucous membranes Neck Exam: normal inspection, non-tender, supple, full range of motion Respiratory Exam: normal breath sounds, lungs clear, No respiratory distress Cardiovascular Exam: regular rate/rhythm, normal heart sounds Gastrointestinal/Abdomen Exam: soft, No tenderness, No mass Extremity Exam: normal inspection, normal range of motion Back Exam: normal inspection, normal range of motion, No CVA tenderness, No vertebral tenderness Pelvic Exam: deferred Rectal Exam: deferred Final Diagnosis/Problem List - Final Discharge Diagnosis/Problem (1) Atrial fibrillation with RVR Status: Acute (2) Pneumonia Status: Acute (3) Acute and chronic respiratory failure with hypoxia Status: Acute (4) Type 2 diabetes mellitus Status: Chronic (5) Coronary artery disease Status: Chronic (6) Gout Status: Acute - Discharge Discharge Date: 09/09/17 Disposition: Home, Self-Care Condition: Stable Prescriptions: New Levofloxacin [Levofloxacin 500 MG Tablet] 500 mg PO DAILY #5 tablet Metoprolol Tartrate 100 mg PO BID #60 tablet Albuterol Sulfate [Albuterol Sulfate Hfa] 2 puff IH Q4H PRN #1 [id number] PRN Reason: Shortness Of Breath/Wheezing Continue Furosemide 40 mg [Lasix 40 MG] 40 mg PO TID Pramipexole Di-HCl [Mirapex] 1 mg PO BID Clopidogrel Bisulfate [Plavix] 75 mg PO DAILY Rosuvastatin Calcium [Crestor] 10 mg PO HS Omeprazole 20 MG [Prilosec 20 mg] 20 mg PO DAILY Pregabalin [Lyrica] 75 mg PO TID #90 capsule Potassium Chloride 10 Meq Tab* [Klor Con 10 MEQ] 10 meq PO BID Clonazepam 0.5 mg PO BID PRN PRN PRN Reason: Anxiety Ketorolac Tromethamine 1 drop OP QID Tobramycin 1 drop OP QID Imipramine HCl 50 mg PO HS Losartan Potassium 25 mg PO DAILY Apixaban [Eliquis] 2.5 mg PO BID Sitagliptin Phosphate [Januvia] 100 mg PO DAILY Acetaminophen 500 mg [Tylenol Extra Strength 500 mg] 500 mg PO Q6H PRN PRN PRN Reason: Pain Discontinued Metoprolol Tartrate 75 mg PO BID Instructions: Atrial Fibrillation (DC), Heart Failure, Adult (DC), Pneumonia, Adult (DC) Follow up with: IGLESIA DE LEON [Primary Care Provider] - 09/16/17 10:00 am Forms: CHF Discharge Instructions
[2017-09-09] MEDS: NovoLOG Insulin SQ PRN ×2 (08:03→12:12)
[2017-09-09] MEDS: Mirapex 0.5 MG Tablet PO SCH (10:17)
[2017-09-09] MEDS: Protonix 40MG Tablet PO SCH (10:18)
[2017-09-09] MEDS: BUMEX 1 MG IV SCH (10:18)
[2017-09-09] MEDS: Lopressor 50 MG PO SCH (10:18)
[2017-09-09] MEDS: ELIQUIS PO SCH (10:18)
[2017-09-09] MEDS: Klor Con 10 MEQ PO SCH (10:18)
[2017-09-09] MEDS: LYRICA 75 MG CAP PO SCH (10:18)
[2017-09-09] MEDS: Januvia 50 MG PO SCH (10:18)
[2017-09-09] MEDS: PLAVIX 75 MG Tablet PO SCH (10:18)
[2017-09-09] MEDS: ECOTRIN 81 MG PO SCH (10:18)
[2017-09-09] MEDS: Acular OPTH SOL OP SCH (10:19)
[2017-09-09] MEDS: Cozaar 50 MG PO SCH (10:19)
[2017-09-09] MEDS: Tobrex EYE DROPS 5 ML OP SCH (10:19)
[2017-09-09] MEDS: NITRO-BID 2% UD PACKETS TOP SCH (11:39)
[2017-09-09 12:10] VITALS: BP 126/67; PULSE 67
[2017-09-11 02:28] VITALS: O2SAT 90
--- NOTE | 2017-09-11 08:30 | ECHO ---
DATE OF PROCEDURE: 09/08/2017 INDICATION: An echocardiogram was requested on this patient with complaints of shortness of breath and congestive heart failure. ECHOCARDIOGRAM FINDINGS: CHAMBERS: The left atrium is mild to moderately dilated. Left ventricle is normal size. Mild concentric left ventricular hypertrophy present. Normal left ventricular systolic function. Ejection fraction 70%. Right atrium is mildly dilated. Right ventricle is normal in size. Aortic root is normal. VALVES: Aortic valve leaflets are not well visualized. Mitral and tricuspid valve leaflets are normal structure and mobility. Doppler evaluation of the valves revealed mild aortic insufficiency, mild to moderate mitral regurgitation and mild tricuspid regurgitation. Calculated right ventricular systolic pressure is normal. There is no pericardial effusion noted. IMPRESSION: 1) TECHNICALLY FAIR STUDY. 2) MILD TO MODERATELY DILATED RIGHT ATRIUM. 3) MILD TO MODERATELY DILATED LEFT ATRIUM. 4) MILD TO MODERATE CONCENTRIC LEFT VENTRICULAR HYPERTROPHY. 5) NORMAL LEFT VENTRICULAR SYSTOLIC FUNCTION. EJECTION FRACTION 70%. 6) MILD AORTIC INSUFFICIENCY. 7) MILD TO MODERATE MITRAL REGURGITATION. 8) MILD TRICUSPID REGURGITATION WITH NORMAL RIGHT VENTRICULAR SYSTOLIC PRESSURE.
== END 2017-09-09 13:30 | disposition home or self-care (01) | DRG 308 ==
LOC: ED 22:21 → MED SURG 09-07 01:30 → ICU 09-07 19:51 → MED SURG 09-08 11:27
PROVIDERS: ADMIT Family Medicine; ATTEND Family Medicine
DX: I48.91 Unspecified atrial fibrillation (principal); J18.9 Pneumonia, unspecified organism; J96.21 Acute and chronic respiratory failure with hypoxia; E78.00 Pure hypercholesterolemia, unspecified; I50.9 Heart failure, unspecified; M19.90 Unspecified osteoarthritis, unspecified site; E11.9 Type 2 diabetes mellitus without complications; F32.9 Major depressive disorder, single episode, unspecified; J44.9 Chronic obstructive pulmonary disease, unspecified; Z87.891 Personal history of nicotine dependence; I25.10 Atherosclerotic heart disease of native coronary artery without angina pectoris; M10.9 Gout, unspecified; F41.9 Anxiety disorder, unspecified; Z79.01 Long term (current) use of anticoagulants; Z79.899 Other long term (current) drug therapy; Z99.81 Dependence on supplemental oxygen; E78.5 Hyperlipidemia, unspecified; I10 Essential (primary) hypertension; K21.9 Gastro-esophageal reflux disease without esophagitis; Z95.0 Presence of cardiac pacemaker
CPT/HCPCS: 36415; 71045; 80048; 80053; 80061; 82962; 83036; 83721; 83735; 83880; 84443; 84484; 85025; 85027; 85610; 87631; 93005; 93041; 93306; 94150; 94640; 94760; 96360; 96361; 99285; J1956; J2270; J2405; A9270-GY

== ENCOUNTER 2017-11-09 14:28 | Emergency (ER) | payer MEDICARE ==
[2017-11-09] MEDS ORDERED: Sodium Chloride 0.9% 1000 ML 1,000 ML IV STA (14:39)
--- NOTE | 2017-11-09 14:47 | ERPHSYRPT ---
- History of Present Illness Time Seen by Provider: 11/09/17 14:33 Source: patient, family (DAUGHTER) Exam Limitations: no limitations Physician History: FOR THE PAST 2 DAYS PT HAS HAD NAUSEA, A RIGHT SIDED HEADACHE/EARACHE AND WEAKNESS IN THE ARMS AND HANDS. PT ALSO C/O DAILY DIAPHORESIS FOR YEARS. PT DENIES CHEST PAIN, ABDOMINAL PAIN, FEVER. FOR THE PAST 6 MONTHS PT STATES SHE WEARS OXYGEN 4L/MIN OCCASIONALLY AT NIGHT. Allergies/Adverse Reactions: codeine Allergy (Verified 01/09/17 23:52) Penicillins Allergy (Verified 01/09/17 23:52) Sulfa (Sulfonamide Antibiotics) Allergy (Verified 01/09/17 23:52) hydromorphone [From Dilaudid] Adverse Reaction (Verified 01/09/17 23:52) Home Medications: Clopidogrel Bisulfate [Plavix] 75 mg PO DAILY 12/24/16 [History] Furosemide 40 mg [Lasix 40 MG] 40 mg PO TID 12/24/16 [History] Pramipexole Di-HCl [Mirapex] 1 mg PO BID 12/24/16 [History] Omeprazole 20 MG [Prilosec 20 mg] 20 mg PO DAILY 12/25/16 [History] Rosuvastatin Calcium [Crestor] 10 mg PO HS 12/25/16 [History] Acetaminophen 500 mg [Tylenol Extra Strength 500 mg] 500 mg PO Q6H PRN PRN 09/07/17 [History] Apixaban [Eliquis 5 mg Tablet] 2.5 mg PO BID 09/07/17 [History] Clonazepam 0.5 mg PO BID PRN PRN 09/07/17 [History] Imipramine HCl 50 mg PO HS 09/07/17 [History] Ketorolac Tromethamine 1 drop OP QID 09/07/17 [History] Losartan Potassium 25 mg PO DAILY 09/07/17 [History] Potassium Chloride 10 Meq Tab* [Klor Con 10 MEQ] 10 meq PO BID 09/07/17 [ History] Sitagliptin Phosphate [Januvia] 100 mg PO DAILY 09/07/17 [History] Tobramycin 1 drop OP QID 09/07/17 [History] Hx Tetanus, Diphtheria Vaccination/Date Given: Yes Hx Influenza Vaccination/Date Given: Yes Hx Pneumococcal Vaccination/Date Given: Yes - Review of Systems Constitutional: Weakness Ears, Nose, & Throat: Ear Pain (RIGHT) Cardiac: No Chest Pain Abdominal/Gastrointestinal: Nausea, No Abdominal Pain, No Vomiting Neurological: Headache Endocrine: Excessive Sweating All Other Systems: Reviewed and Negative - Past Medical History Pertinent Past Medical History: Yes Neurological History: No Pertinent History ENT History: Cataracts Cardiac History: Aneurysm, High Cholesterol, Hypertension Respiratory History: CHF, COPD, Pneumonia Endocrine Medical History: No Pertinent History, Diabetes Type II Musculoskeletal History: Arthritis GI Medical History: GERD, Hernia History: Other Psycho-Social History: Depression Female Reproductive Disorders: No Pertinent History - Past Surgical History Past Surgical History: Yes Neuro Surgical History: No Pertinent History Cardiac: Vascular Surgery Respiratory: No Pertinent History Gastrointestinal: Appendectomy Genitourinary: No Pertinent History Musculoskeletal: No Pertinent History Female Surgical History: Hysterectomy Other Surgical History: cystocele. rectocele. carotidendarectomy. cataract surgery scheduled for 01/01 - Social History Smoking Status: Former smoker Exposure to second hand smoke: No Drug Use: none Patient Lives Alone: Yes - Nursing Vital Signs Nursing Vital Signs: Initial Vital Signs Temperature 98.4 F 11/09/17 14:37 Pulse Rate 62 11/09/17 14:37 Respiratory Rate 16 11/09/17 14:37 Blood Pressure 84/52 11/09/17 14:37 O2 Sat by Pulse Oximetry 78 L 11/09/17 14:37 Pain Scale Pain Intensity 0 - Physical Exam General Appearance: alert Eye Exam: PERRL/EOMI Ears, Nose, Throat Exam: TMs normal, pharynx normal, moist mucous membranes Neck Exam: normal inspection Respiratory Exam: lungs clear Cardiovascular Exam: normal heart sounds Gastrointestinal/Abdomen Exam: soft, normal bowel sounds Extremity Exam: normal inspection, normal range of motion, No pedal edema Neurologic Exam: alert, oriented x 3, cooperative, sensation nml, other (NO BABINSKI PRESENT), No motor deficits, No motor weakness Skin Exam: warm, dry SpO2 Interpretation: hypoxic SpO2: 78 Oxygen Delivery: Room Air - Course Nursing assessment & vital signs reviewed: Yes EKG Interpreted by Me: RATE (79), NORMAL AXIS, NORMAL INTERVALS, Other ( PACEMAKER RHYTHM) - CT Exams Head CT Interpretation: Tele-radiologist Report (CHRONIC MICROVASCULAR DISEASE. SMALL RIGHT PRECENTRAL LUCENCY CONSISTENT WITH INFARCT. THIS COULD BE SUBACUTE NO ENCEPHALOMALACIA IS SEEN. FOLLOW UP RECOMMENDED TO EVALUATE FOR EVOLVING INFARCT OR UNDERLYING LESION.) Ordered Tests: Active Orders 24 hr Category Date Time Status Operations Vice President STAT Care 11/09/17 14:40 Active EKG-ER Only STAT Care 11/09/17 14:39 Active Muhammad [Catheter-[place] Muhammad] STAT Care 11/09/17 15:59 Active IV Insertion STAT Care 11/09/17 14:39 Active Oxygen-ED Only NASAL CANNULA 4 lpm Care 11/09/17 14:39 Active Pulse Oximetry (ED) STAT Care 11/09/17 14:39 Active CHEST 1 VIEW (PORTABLE) Stat Exams 11/09/17 17:48 Taken HEAD WITHOUT CONTRAST [CT] Stat Exams 11/09/17 17:12 Taken AMYLASE Urgent Lab 11/09/17 14:55 Completed ARTERIAL BLOOD GASES Urgent Lab 11/09/17 14:39 Completed BLOOD CULTURE Stat Lab 11/09/17 14:55 Received CBC W DIFF Stat Lab 11/09/17 14:55 Completed CMP Urgent Lab 11/09/17 14:55 Completed CULTURE,URINE Stat Lab 11/09/17 Uncollected D-DIMER QUANTITATION Stat Lab 11/09/17 14:55 Completed LIPASE Urgent Lab 11/09/17 14:55 Completed Lactic Acid Stat Lab 11/09/17 14:39 Completed MAGNESIUM Urgent Lab 11/09/17 14:55 Completed Rooks Screen Stat Lab 11/09/17 14:55 Completed NT PRO BNP Urgent Lab 11/09/17 14:55 Completed PROTIME WITH INR Stat Lab 11/09/17 14:55 Completed PTT Stat Lab 11/09/17 14:55 Completed TROPONIN Q3H Lab 11/09/17 14:55 Completed TROPONIN Q3H Lab 11/09/17 17:45 Ordered TROPONIN Q3H Lab 11/09/17 20:45 Ordered TROPONIN Q3H Lab 11/09/17 23:45 Ordered TROPONIN Q3H Lab 11/10/17 02:45 Ordered UA W/ MICROSCOPIC Stat Lab 11/09/17 16:15 Completed Urine Triage Profile Stat Lab 11/09/17 16:30 Completed VBG [VENOUS BLOOD GAS] Stat Lab 11/09/17 15:24 Completed BiPap/CPAP Assessment STAT RT 11/09/17 15:09 Active Medication Summary Generic Name Dose Route Start Last Admin Trade Name Freq PRN Reason Stop Dose Admin Ceftriaxone Sodium/Dextrose 1 g in 50 mls @ 100 mls/hr 11/09/17 17:45 17:57 Rocephin 1 Gm-D5w 50 Ml Bag IV 11/09/17 18:14 100 mls/hr STAT STA Administration Discontinued Medications Generic Name Dose Route Start Last Admin Trade Name Freq PRN Reason Stop Dose Admin Sodium Chloride 1,000 mls @ 999 mls/hr 11/09/17 14:39 11/09/17 14:59 Sodium Chloride 0.9% 1000 Ml IV 11/09/17 15:39 999 mls/hr .Q1H1M STA Administration Sodium Chloride Confirm 11/09/17 14:51 Sodium Chloride 0.9% 1000 Ml Administered 11/09/17 14:52 Dose 1,000 mls @ ud .ROUTE .STK-MED ONE Ceftriaxone Sodium/Dextrose Confirm 11/09/17 17:54 Rocephin 1 Gm-D5w 50 Ml Bag Administered 11/09/17 17:55 Dose 1 g in 50 mls @ ud IV .STK-MED ONE Lab/Rad Data: Laboratory Result Diagrams 11/09/17 14:55 11/09/17 14:55 Laboratory Results 11/09/17 11/09/17 11/09/17 Range/Units 16:30 16:15 15:24 WBC (4.0-10.5) K/mm3 RBC (4.1-5.4) M/mm3 Hgb (12.0-16.0) gm/dl Hct (35-47) % MCV (78-100) fl MCH (26-32) pg MCHC (32-36) g/dl RDW (11.5-14.0) % Plt Count (150-450) K/mm3 MPV (6-9.5) fl Gran % (36.0-66.0) % Eos # (Auto) (0-0.5) Absolute Lymphs (auto) (1.0-4.6) Absolute Monos (auto) (0.0-1.3) Lymphocytes % (24.0-44.0) % Monocytes % (0.0-12.0) % Eosinophils % (0.00-5.0) % Basophils % (0.0-0.4) % Absolute Granulocytes (1.4-6.9) Basophils # (0-0.4) PT (9.95-12.35) SECONDS INR (0.8-3.0) APTT (25.3-37.0) SECONDS D-Dimer (215-500) ng/mL Puncture Site pCO2 (35-45) mmHg pO2 (75-100) mmHg pO2/FiO2 Ratio 21.0 % Base Excess (-2.0-2.0) O2 Saturation (94-100) g/dF ABG pH (7.35-7.45) ABG HCO3 (22-28) ABG O2 Sat (Measured) (95-100) % Nito Test VBG pH 7.28 L (7.32-7.42) VBG pCO2 at Pat Temp 61 H (42-55) mm/Hg VBG pO2 at Pat Temp 27 (25-40) mm/Hg VBG HCO3 28.7 H (22-28) meq/L VBG O2 Sat (Marcus) 46.1 L (95-100) VBG Base Excess 0.7 (-2.0-2.0) VBG Hemoglobin 12.2 VBG Carboxyhemoglobin 3.7 (0.0-6.9) % T HGB A-a Gradient a/A Ratio Hemoglobin Carboxyhemoglobin (0.0-6.9) % THgb Methemoglobin (1.4-1.5) % Potassium (3.5-5.1) POC Potassium 6.1 H* (3.5-5.1) Temperature C POC O2 Flow Rate % Vent Mode Inspiratory BiPAP Expiratory BiPAP Sodium (137-145) mmol/L Chloride (98-107) mmol/L Carbon Dioxide (22-30) mmol/L Anion Gap (5-15) MEQ/L BUN (7-17) mg/dL Creatinine (0.52-1.04) mg/dL Estimated GFR ML/MIN Glucose (74-106) mg/dL Lactic Acid (0.4-2.0) Calcium (8.4-10.2) mg/dL Magnesium (1.6-2.3) mg/dL Total Bilirubin (0.2-1.3) mg/dL AST (14-36) U/L ALT (0-35) U/L Alkaline Phosphatase (38-126) U/L Troponin I (0.000-0.034) ng/mL NT-Pro-B Natriuret Pep (0-900) pg/mL Serum Total Protein (6.3-8.2) g/dL Albumin (3.5-5.0) g/dL Amylase (30-110) U/L Lipase (23-300) U/L Ur Collection Type CLEAN CATCH Urine Color YELLOW (YELLOW) Urine Appearance HAZY (CLEAR) Urine pH 5.0 (5-6) Ur Specific [place] 1.020 (1.005-1.025) Urine Protein 100 (Negative) Urine Ketones NEGATIVE (NEGATIVE) Urine Blood NEGATIVE (0-5) Timbo/ul Urine Nitrite NEGATIVE (NEGATIVE) Urine Bilirubin NEGATIVE (NEGATIVE) Urine Urobilinogen NORMAL (0-1) mg/dL Ur Leukocyte Esterase NEGATIVE (NEGATIVE) Urine Microscopic RBC 0-2 (0-2) /HPF Urine Microscopic WBC 2-5 (0-5) /HPF Ur Epithelial Cells FEW (FEW) /HPF Amorphous Crystals MODERATE (NEGATIVE) /HPF Urine Bacteria FEW (NEGATIVE) /HPF Hyaline Casts 0-2 (0-2) /LPF Urine Culture Reflexed NO (NO) Urine Glucose NEGATIVE (NEGATIVE) mg/dL Urine Opiates Level NEGATIVE (NEGATIVE) Ur Methadone NEGATIVE (NEGATIVE) Urine Barbiturates NEGATIVE (NEGATIVE) Ur Phencyclidine (PCP) NEGATIVE (NEGATIVE) Urine Amphetamine NEGATIVE (NEGATIVE) U Benzodiazepine Level NEGATIVE (NEGATIVE) Urine Cocaine NEGATIVE (NEGATIVE) Urine Marijuana (THC) NEGATIVE (NEGATIVE) Monoscreen (Negative) Specimen Received 11/09/17 1615 11/09/17 11/09/17 11/09/17 Range/Units 14:55 14:55 14:55 WBC (4.0-10.5) K/mm3 RBC (4.1-5.4) M/mm3 Hgb (12.0-16.0) gm/dl Hct (35-47) % MCV (78-100) fl MCH (26-32) pg MCHC (32-36) g/dl RDW (11.5-14.0) % Plt Count (150-450) K/mm3 MPV (6-9.5) fl Gran % (36.0-66.0) % Eos # (Auto) (0-0.5) Absolute Lymphs (auto) (1.0-4.6) Absolute Monos (auto) (0.0-1.3) Lymphocytes % (24.0-44.0) % Monocytes % (0.0-12.0) % Eosinophils % (0.00-5.0) % Basophils % (0.0-0.4) % Absolute Granulocytes (1.4-6.9) Basophils # (0-0.4) PT 12.7 H (9.95-12.35) SECONDS INR 1.14 (0.8-3.0) APTT 31.7 (25.3-37.0) SECONDS D-Dimer 3620.49 H* (215-500) ng/mL Puncture Site pCO2 (35-45) mmHg pO2 (75-100) mmHg pO2/FiO2 Ratio % Base Excess (-2.0-2.0) O2 Saturation (94-100) g/dF ABG pH (7.35-7.45) ABG HCO3 (22-28) ABG O2 Sat (Measured) (95-100) % Nito Test VBG pH (7.32-7.42) VBG pCO2 at Pat Temp (42-55) mm/Hg VBG pO2 at Pat Temp (25-40) mm/Hg VBG HCO3 (22-28) meq/L VBG O2 Sat (Marcus) (95-100) VBG Base Excess (-2.0-2.0) VBG Hemoglobin VBG Carboxyhemoglobin (0.0-6.9) % T HGB A-a Gradient a/A Ratio Hemoglobin Carboxyhemoglobin (0.0-6.9) % THgb Methemoglobin (1.4-1.5) % Potassium 4.7 (3.5-5.1) POC Potassium (3.5-5.1) Temperature C POC O2 Flow Rate % Vent Mode Inspiratory BiPAP Expiratory BiPAP Sodium 134 L (137-145) mmol/L Chloride 97 L (98-107) mmol/L Carbon Dioxide 26 (22-30) mmol/L Anion Gap 16.3 H (5-15) MEQ/L BUN 50 H (7-17) mg/dL Creatinine 2.24 H (0.52-1.04) mg/dL Estimated GFR 22.8 ML/MIN Glucose 147 H (74-106) mg/dL Lactic Acid (0.4-2.0) Calcium 7.6 L (8.4-10.2) mg/dL Magnesium 2.2 (1.6-2.3) mg/dL Total Bilirubin 0.30 (0.2-1.3) mg/dL AST 33 (14-36) U/L ALT 21 (0-35) U/L Alkaline Phosphatase 106 (38-126) U/L Troponin I 0.017 (0.000-0.034) ng/mL NT-Pro-B Natriuret Pep 3550 H (0-900) pg/mL Serum Total Protein 6.8 (6.3-8.2) g/dL Albumin 3.6 (3.5-5.0) g/dL Amylase 66 (30-110) U/L Lipase 34 (23-300) U/L Ur Collection Type Urine Color (YELLOW) Urine Appearance (CLEAR) Urine pH (5-6) Ur Specific [place] (1.005-1.025) Urine Protein (Negative) Urine Ketones (NEGATIVE) Urine Blood (0-5) Timbo/ul Urine Nitrite (NEGATIVE) Urine Bilirubin (NEGATIVE) Urine Urobilinogen (0-1) mg/dL Ur Leukocyte Esterase (NEGATIVE) Urine Microscopic RBC (0-2) /HPF Urine Microscopic WBC (0-5) /HPF Ur Epithelial Cells (FEW) /HPF Amorphous Crystals (NEGATIVE) /HPF Urine Bacteria (NEGATIVE) /HPF Hyaline Casts (0-2) /LPF Urine Culture Reflexed (NO) Urine Glucose (NEGATIVE) mg/dL Urine Opiates Level (NEGATIVE) Ur Methadone (NEGATIVE) Urine Barbiturates (NEGATIVE) Ur Phencyclidine (PCP) (NEGATIVE) Urine Amphetamine (NEGATIVE) U Benzodiazepine Level (NEGATIVE) Urine Cocaine (NEGATIVE) Urine Marijuana (THC) (NEGATIVE) Monoscreen NEGATIVE (Negative) Specimen Received 11/09/17 11/09/17 11/09/17 Range/Units 14:55 14:39 14:39 WBC 8.1 (4.0-10.5) K/mm3 RBC 3.87 L (4.1-5.4) M/mm3 Hgb 11.5 L (12.0-16.0) gm/dl Hct 39.4 (35-47) % MCV 101.8 H (78-100) fl MCH 29.7 (26-32) pg MCHC 29.2 L (32-36) g/dl RDW 18.0 H (11.5-14.0) % Plt Count 116 L (150-450) K/mm3 MPV 10.5 H (6-9.5) fl Gran % 64.5 (36.0-66.0) % Eos # (Auto) 0.07 (0-0.5) Absolute Lymphs (auto) 2.11 (1.0-4.6) Absolute Monos (auto) 0.68 (0.0-1.3) Lymphocytes % 26.1 (24.0-44.0) % Monocytes % 8.4 (0.0-12.0) % Eosinophils % 0.9 (0.00-5.0) % Basophils % 0.1 (0.0-0.4) % Absolute Granulocytes 5.21 (1.4-6.9) Basophils # 0.01 (0-0.4) PT (9.95-12.35) SECONDS INR (0.8-3.0) APTT (25.3-37.0) SECONDS D-Dimer (215-500) ng/mL Puncture Site LEFT RADIAL pCO2 58 H (35-45) mmHg pO2 80 (75-100) mmHg pO2/FiO2 Ratio % Base Excess -0.3 (-2.0-2.0) O2 Saturation 92.2 L (94-100) g/dF ABG pH 7.28 L (7.35-7.45) ABG HCO3 27.3 (22-28) ABG O2 Sat (Measured) 96.0 (95-100) % Nito Test YES VBG pH (7.32-7.42) VBG pCO2 at Pat Temp (42-55) mm/Hg VBG pO2 at Pat Temp (25-40) mm/Hg VBG HCO3 (22-28) meq/L VBG O2 Sat (Marcus) (95-100) VBG Base Excess (-2.0-2.0) VBG Hemoglobin VBG Carboxyhemoglobin (0.0-6.9) % T HGB A-a Gradient 204 a/A Ratio 0.28 Hemoglobin 11.5 Carboxyhemoglobin 3.0 (0.0-6.9) % THgb Methemoglobin 1.0 L (1.4-1.5) % Potassium 4.6 (3.5-5.1) POC Potassium (3.5-5.1) Temperature 37.0 C POC O2 Flow Rate 50 % Vent Mode BiPAP Inspiratory BiPAP 14 Expiratory BiPAP 6 Sodium (137-145) mmol/L Chloride (98-107) mmol/L Carbon Dioxide (22-30) mmol/L Anion Gap (5-15) MEQ/L BUN (7-17) mg/dL Creatinine (0.52-1.04) mg/dL Estimated GFR ML/MIN Glucose (74-106) mg/dL Lactic Acid 1.4 (0.4-2.0) Calcium (8.4-10.2) mg/dL Magnesium (1.6-2.3) mg/dL Total Bilirubin (0.2-1.3) mg/dL AST (14-36) U/L ALT (0-35) U/L Alkaline Phosphatase (38-126) U/L Troponin I (0.000-0.034) ng/mL NT-Pro-B Natriuret Pep (0-900) pg/mL Serum Total Protein (6.3-8.2) g/dL Albumin (3.5-5.0) g/dL Amylase (30-110) U/L Lipase (23-300) U/L Ur Collection Type Urine Color (YELLOW) Urine Appearance (CLEAR) Urine pH (5-6) Ur Specific [place] (1.005-1.025) Urine Protein (Negative) Urine Ketones (NEGATIVE) Urine Blood (0-5) Timbo/ul Urine Nitrite (NEGATIVE) Urine Bilirubin (NEGATIVE) Urine Urobilinogen (0-1) mg/dL Ur Leukocyte Esterase (NEGATIVE) Urine Microscopic RBC (0-2) /HPF Urine Microscopic WBC (0-5) /HPF Ur Epithelial Cells (FEW) /HPF Amorphous Crystals (NEGATIVE) /HPF Urine Bacteria (NEGATIVE) /HPF Hyaline Casts (0-2) /LPF Urine Culture Reflexed (NO) Urine Glucose (NEGATIVE) mg/dL Urine Opiates Level (NEGATIVE) Ur Methadone (NEGATIVE) Urine Barbiturates (NEGATIVE) Ur Phencyclidine (PCP) (NEGATIVE) Urine Amphetamine (NEGATIVE) U Benzodiazepine Level (NEGATIVE) Urine Cocaine (NEGATIVE) Urine Marijuana (THC) (NEGATIVE) Monoscreen (Negative) Specimen Received - Progress Discussed with Dr.: Other (SPOKE WITH DR YEAGER(HOSPITALIST AT [facility])( [phone]) WHO ACCEPTED PT FOR TRANSFER TO [facility] ICU A DIRECT ADMISSION.) - Departure Time of Disposition: 18:09 Departure Disposition: Transfer ([facility]) Clinical Impression: ACUTE RESPIRATORY FAILURE, WEAKNESS, HEADACHE, HTN, COPD, DM, ARTHRITIS, GERD, DEPRESSION Condition: Fair Critical Care Time: Yes Critical Care Time(excluding separately billable procedures): 30-74 minutes Referrals: IGLESIA DE LEON [Primary Care Provider] -
[2017-11-09] MEDS ORDERED: Sodium Chloride 0.9% 1000 ML 1,000 ML ONE (14:51)
[2017-11-09 15:05] LABS: BASOPHIL % 0.1 % (0.0-0.4); Basophil (Absolute #) 0.01 (0-0.4); Eosinophil % 0.9 % (0.00-5.0); Eosinophil (Absolute #) 0.07 (0-0.5); Granulocyte Absolute (ANC) 5.21 (1.4-6.9); Granulocytes % 64.5 % (36.0-66.0); Hematocrit 39.4 % (35-47); Hemoglobin 11.5 gm/dl (12.0-16.0); Lymphocyte (Absolute #) 2.11 (1.0-4.6); Lymphocytes % 26.1 % (24.0-44.0); Mean Cell Volume 101.8 fl (78-100); Mean Corpuscular Hemoglobin 29.7 pg (26-32); Mean Corpuscular Hgb Concent. 29.2 g/dl (32-36); Mean Platelet Volume 10.5 fl (6-9.5); Monocyte (Absolute #) 0.68 (0.0-1.3); Monocytes % 8.4 % (0.0-12.0); Platelet Count 116 K/mm3 (150-450); Red Blood Count 3.87 M/mm3 (4.1-5.4); White Blood Count 8.1 K/mm3 (4.0-10.5)
[2017-11-09 15:16] LABS: INR 1.14 (0.8-3.0)
[2017-11-09 15:25] LABS: D-DIMER QUANTITATION 3620.49 ng/mL (215-500); PTT 31.7 SECONDS (25.3-37.0)
[2017-11-09 15:28] LABS: VBG BASE EXCESS 0.7 (-2.0-2.0); VBG CARBOXYHEMOGLOBIN 3.7 % T HGB (0.0-6.9); VBG HCO3- 28.7 meq/L (22-28); VBG HEMOGLOBIN 12.2; VBG O2 SATURATION 46.1 (95-100); VBG pH 7.28 (7.32-7.42)
[2017-11-09 15:29] LABS: VBG POTASSIUM 6.1 (3.5-5.1)
[2017-11-09 16:18] LABS: A-aADO2 204; ABG HEMOGLOBIN 11.5; ABG POTASSIUM 4.6 (3.5-5.1); ARTERIAL BLOOD GAS BASE EXCESS -0.3 (-2.0-2.0); ARTERIAL BLOOD GAS FIO2 50 %; ARTERIAL BLOOD GAS PCO2 58 mmHg (35-45); ARTERIAL BLOOD GAS PO2 80 mmHg (75-100); ARTERIAL BLOOD GAS VENT MODE BiPAP; ARTERIAL BLOOD GAS pH 7.28 (7.35-7.45); HCO3- 27.3 (22-28); HGB O2 SAT 92.2 g/dF (94-100); paO2 pAO1 0.28
[2017-11-09 16:19] LABS: ABG SITE LEFT RADIAL; ALLEN TEST OK? YES
[2017-11-09 16:26] LABS: Appearance HAZY (CLEAR); Bilirubin NEGATIVE (NEGATIVE); Blood NEGATIVE Ery/ul (0-5); Glucose NEGATIVE (NEGATIVE); Ketones NEGATIVE (NEGATIVE); Leukocyte Esterase NEGATIVE (NEGATIVE); Nitrite NEGATIVE (NEGATIVE); Protein,Urine Dip 100 (Negative); Urobilinogen NORMAL mg/dL (0-1)
[2017-11-09 16:35] LABS: ALBUMIN 3.6 g/dL (3.5-5.0); ANION GAP 16.3 MEQ/L (5-15); BILIRUBIN,TOTAL 0.3 mg/dL (0.2-1.3); Calcium 7.6 mg/dL (8.4-10.2); Creatinine 1 2.24 mg/dL (0.52-1.04); Potassium 4.7 mmol/L (3.5-5.1); Total Protein 6.8 g/dL (6.3-8.2)
[2017-11-09 16:37] LABS: Bacteria FEW /HPF (NEGATIVE); Epithelial Cells FEW /HPF (FEW)
[2017-11-09 16:38] LABS: Amourphous Crystal MODERATE /HPF (NEGATIVE); Hyaline Casts 0-2 /LPF (0-2)
[2017-11-09 16:45] LABS: Amphetamine,Urine NEGATIVE (NEGATIVE); Barbiturate,Urine NEGATIVE (NEGATIVE); Benzodiazepine,Urine NEGATIVE (NEGATIVE); Cocaine,Urine NEGATIVE (NEGATIVE); Methadone,Urine NEGATIVE (NEGATIVE); Opiate,Urine NEGATIVE (NEGATIVE); PCP,Urine NEGATIVE (NEGATIVE); THC,Urine NEGATIVE (NEGATIVE)
[2017-11-09 16:53] LABS: TROPONIN 0.017 ng/mL (0.000-0.034)
[2017-11-09] MEDS ORDERED: ROCEPHIN 1 Gm-D5w 50 ml Bag** 1 G/50 ML IVPB IV STA (17:45)
[2017-11-09] MEDS ORDERED: ROCEPHIN 1 Gm-D5w 50 ml Bag** 1 G/50 ML IVPB IV ONE (17:54)
[2017-11-09] MEDS ORDERED: ENOXAPARIN SODIUM SQ SCH (18:15)
[2017-11-09] MEDS ORDERED: ENOXAPARIN SODIUM SQ STA (18:25)
[2017-11-09] MEDS ORDERED: ENOXAPARIN SODIUM SQ ONE (18:27)
[2017-11-09 18:46] VITALS: BP 162/95; PULSE 65; O2SAT 100
--- NOTE | 2017-11-09 21:29 | XRAY ---
Indication: Short of breath. Comparison: September 06, 2017. Portable chest unchanged again with bilateral mid to lower lung infiltrates/atelectasis. No consolidation or large effusion. Heart remains enlarged with left-sided dual-lead pacemaker. No new cardiopulmonary abnormalities.
--- NOTE | 2017-11-09 21:33 | XRAY ---
Indication: Headache and weakness. Multiple contiguous axial images obtained through the head without contrast. Comparison: None. Age-appropriate global atrophy and mild periventricular degenerative micro-ischemia bilaterally. Small focus of old infarcts in the left centrum semiovale anteriorly and mid right vertex. No acute intracranial hemorrhage, abnormal extra-axial fluid collection, or mass effect. Fourth ventricle is midline without hydrocephalus. Bony calvarium intact. Visualized paranasal sinuses and mastoid air cells are clear. 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 No acute intracranial abnormalities. Comment: Preliminary interpretation was made by [facility]. No critical discrepancy. CTDI 65.67
== END 2017-11-09 19:00 | disposition short-term general hospital (02) ==
LOC: ED 14:28
DX: J96.00 Acute respiratory failure, unspecified whether with hypoxia or hypercapnia (principal); R53.1 Weakness; R51 Headache; I10 Essential (primary) hypertension; J44.9 Chronic obstructive pulmonary disease, unspecified; E11.9 Type 2 diabetes mellitus without complications; M19.90 Unspecified osteoarthritis, unspecified site; I50.9 Heart failure, unspecified; K21.9 Gastro-esophageal reflux disease without esophagitis; F32.9 Major depressive disorder, single episode, unspecified; R11.0 Nausea; Z79.01 Long term (current) use of anticoagulants; Z79.899 Other long term (current) drug therapy
CPT/HCPCS: 36000; 36415; 36600; 51702; 70450; 71045; 80053; 80307; 81000; 82150; 82375; 82803; 82805; 83605; 83690; 83735; 83880; 84484; 85025; 85379; 85610; 85730; 86308; 87040; 93005; 93041; 94002; 96360; 96365; 96372; 99285; P9612; 96361; J0696; J1650

== ENCOUNTER 2018-02-10 16:24 | Inpatient (IN) | payer MEDICARE ==
[2018-02-10] MEDS ORDERED: Sodium Chloride 0.9% 1000 ML 1,000 ML IV SCH (17:15)
--- NOTE | 2018-02-10 17:17 | ERPHSYRPT ---
- History of Present Illness Time Seen by Provider: 02/10/18 17:14 Source: patient Exam Limitations: no limitations Physician History: 73-year-old white female arrives with complaints that she apparently found herself on the floor today. She feels like she is not functioning well. She is not having any pain she has no vomiting no diarrhea. Past medical history includes cataracts, abdominal aneurysm, hypercholesterolemia, high blood pressure, congestive heart failure, COPD, pneumonia, type 2 diabetes, GERD, hernia, depression. Past surgical history includes vascular surgery, appendectomy, hysterectomy, cystocele, rectocele, carotid endarterectomy, 2 cataract surgeries. Timing/Duration: today Severity: moderate Modifying Factors: Improves With: nothing Associated Symptoms: malaise, syncope, weakness, No nausea, No vomiting, No abdominal pain, No shortness of breath, No heartburn, No diaphoresis, No cough, No chills, No chest pain, No fever, No headaches, No loss of appetite, No rash, No seizure Allergies/Adverse Reactions: codeine Allergy (Verified 02/10/18 17:16) Penicillins Allergy (Verified 02/10/18 17:16) Sulfa (Sulfonamide Antibiotics) Allergy (Verified 02/10/18 17:16) hydromorphone [From Dilaudid] Adverse Reaction (Verified 02/10/18 17:16) Home Medications: Clopidogrel Bisulfate [Plavix] 75 mg PO DAILY 12/24/16 [History] Furosemide 40 mg [Lasix 40 MG] 40 mg PO TID 12/24/16 [History] Pramipexole Di-HCl [Mirapex] 1 mg PO BID 12/24/16 [History] Omeprazole 20 MG [Prilosec 20 mg] 20 mg PO DAILY 12/25/16 [History] Rosuvastatin Calcium [Crestor] 10 mg PO HS 12/25/16 [History] Acetaminophen 500 mg [Tylenol Extra Strength 500 mg] 500 mg PO Q6H PRN PRN 09/07/17 [History] Apixaban [Eliquis 5 mg Tablet] 2.5 mg PO BID 09/07/17 [History] Imipramine HCl 50 mg PO HS 09/07/17 [History] Ketorolac Tromethamine 1 drop OP QID 09/07/17 [History] Losartan Potassium 25 mg PO DAILY 09/07/17 [History] Potassium Chloride 10 Meq Tab* [Klor Con 10 MEQ] 10 meq PO BID 09/07/17 [ History] Sitagliptin Phosphate [Januvia] 100 mg PO DAILY 09/07/17 [History] Tobramycin 1 drop OP QID 09/07/17 [History] clonazePAM [Clonazepam] 0.5 mg PO BID PRN PRN 09/07/17 [History] Hx Tetanus, Diphtheria Vaccination/Date Given: Yes Hx Influenza Vaccination/Date Given: Yes Hx Pneumococcal Vaccination/Date Given: Yes - Review of Systems Constitutional: Malaise, Weakness, No Fever, No Chills, No Fatigue, No Lethargy , No Night Sweats, No Weight Loss Eyes: No Symptoms Ears, Nose, & Throat: No Symptoms Respiratory: No Cough, No Dyspnea Cardiac: Syncope, No Chest Pain, No Edema Abdominal/Gastrointestinal: No Abdominal Pain, No Nausea, No Vomiting, No Diarrhea Genitourinary Symptoms: No Dysuria Musculoskeletal: No Back Pain, No Neck Pain Skin: No Rash Neurological: No Dizziness, No Focal Weakness, No Sensory Changes Psychological: No Symptoms Endocrine: No Symptoms All Other Systems: Reviewed and Negative - Past Medical History Pertinent Past Medical History: Yes Neurological History: No Pertinent History ENT History: Cataracts Cardiac History: Aneurysm, High Cholesterol, Hypertension Respiratory History: CHF, COPD, Pneumonia Endocrine Medical History: No Pertinent History, Diabetes Type II Musculoskeletal History: Arthritis GI Medical History: GERD, Hernia History: Other Psycho-Social History: Depression Female Reproductive Disorders: No Pertinent History - Past Surgical History Past Surgical History: Yes Neuro Surgical History: No Pertinent History Cardiac: Vascular Surgery Respiratory: No Pertinent History Gastrointestinal: Appendectomy Genitourinary: No Pertinent History Musculoskeletal: No Pertinent History Female Surgical History: Hysterectomy Other Surgical History: cystocele. rectocele. carotidendarectomy. cataract surgery scheduled for 01/01 - Social History Smoking Status: Former smoker Exposure to second hand smoke: No Drug Use: none Patient Lives Alone: Yes - Nursing Vital Signs Nursing Vital Signs: Initial Vital Signs Pulse Rate 67 02/10/18 17:04 Respiratory Rate 18 02/10/18 17:04 Blood Pressure 126/61 02/10/18 17:04 O2 Sat by Pulse Oximetry 94 L 02/10/18 17:04 Pain Scale Pain Intensity 0 - Physical Exam General Appearance: no apparent distress, alert Eye Exam: PERRL/EOMI, eyes nml inspection Ears, Nose, Throat Exam: normal ENT inspection, TMs normal, pharynx normal, moist mucous membranes Neck Exam: normal inspection, non-tender, supple, full range of motion Respiratory Exam: normal breath sounds, lungs clear, No respiratory distress Cardiovascular Exam: regular rate/rhythm, normal heart sounds, normal peripheral pulses Gastrointestinal/Abdomen Exam: soft, normal bowel sounds, No tenderness, No mass Back Exam: normal inspection, normal range of motion, No CVA tenderness, No vertebral tenderness Extremity Exam: normal inspection, normal range of motion, pelvis stable Neurologic Exam: alert, oriented x 3, cooperative, lead cargoman II-XII nml as tested, normal mood/affect, nml cerebellar function, nml station & gait, sensation nml, No motor deficits Skin Exam: normal color, warm, dry, No rash SpO2 Interpretation: normal (94% 3lnc) - Course Nursing assessment & vital signs reviewed: Yes EKG Interpreted by Me: RATE (62 bpm), Sinus Rhythm, NORMAL AXIS, 1st degree AV Block, Other (EKG: Sinus rhythm with first degree av block, 62 bpm, normal axis , no acute ST or T wave changes noted) Rhythm Strip: Rate - Radiology Exams Chest X-ray Interpretation: Interpreted by me - CT Exams Head CT Interpretation: Discussed w/radiologist (non acute ct brain with 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.) Ordered Tests: Active Orders 24 hr Category Date Time Status Accucheck STAT Care 02/10/18 17:13 Active EKG-ER Only STAT Care 02/10/18 17:11 Active IV Insertion STAT Care 02/10/18 17:11 Active CHEST 1 VIEW (PORTABLE) Stat Exams 02/10/18 17:12 Taken HEAD WITHOUT CONTRAST [CT] Stat Exams 02/10/18 17:14 Taken AMYLASE Stat Lab 02/10/18 17:20 Completed BLOOD CULTURE Stat Lab 02/10/18 17:28 Received CBC W DIFF Stat Lab 02/10/18 17:20 Completed CMP Stat Lab 02/10/18 17:20 Completed CULTURE,URINE Stat Lab 02/10/18 17:11 Ordered ETHYL ALCOHOL Stat Lab 02/10/18 17:20 Completed LIPASE Stat Lab 02/10/18 17:20 Completed Lactic Acid Stat Lab 02/10/18 17:11 Completed TROPONIN Q3H Lab 02/10/18 17:20 Completed TROPONIN Q3H Lab 02/10/18 20:15 Ordered TROPONIN Q3H Lab 02/10/18 23:15 Ordered TROPONIN Q3H Lab 02/11/18 02:15 Ordered TROPONIN Q3H Lab 02/11/18 05:15 Ordered UA W/RFX UR CULTURE Stat Lab 02/10/18 17:11 Uncollected Urine Triage Profile Stat Lab 02/10/18 17:20 Uncollected VENOUS BLOOD GAS Urgent Lab 02/10/18 17:13 Completed Respiratory Nebulizer STAT RT 02/10/18 17:43 Completed Transfer Order Routine Transfer 02/10/18 Ordered Medication Summary Generic Name Dose Route Start Last Admin Trade Name Freq PRN Reason Stop Dose Admin Sodium Chloride 1,000 mls @ 100 mls/hr 02/10/18 17:15 02/10/18 17:29 Sodium Chloride 0.9% 1000 Ml IV 03/12/18 17:14 100 mls/hr .Q10H NORRIS Administration Discontinued Medications Generic Name Dose Route Start Last Admin Trade Name Freq PRN Reason Stop Dose Admin Albuterol/Ipratropium 3 ml 02/10/18 17:42 02/10/18 17:45 Duoneb 0.5-3 Mg/3 Ml Neb IH 02/10/18 17:43 3 ml STAT ONE Administration Albuterol/Ipratropium Confirm 02/10/18 17:50 Duoneb 0.5-3 Mg/3 Ml Neb Administered 02/10/18 17:51 Dose 3 ml IH .STK-MED ONE Ceftriaxone Sodium/Dextrose 1 g in 50 mls @ 100 mls/hr 02/10/18 18:27 Rocephin 1 Gm-D5w 50 Ml Bag IV 02/10/18 18:56 STAT STA Methylprednisolone Sodium Succinate 125 mg 02/10/18 18:55 Solu-Medrol 125 Mg IV 02/10/18 18:56 STAT ONE Lab/Rad Data: Laboratory Result Diagrams 02/10/18 17:20 02/10/18 17:20 Laboratory Results 02/10/18 02/10/18 02/10/18 Range/Units 17:20 17:20 17:20 WBC (4.0-10.5) K/mm3 RBC (4.1-5.4) M/mm3 Hgb (12.0-16.0) gm/dl Hct (35-47) % MCV (78-100) fl MCH (26-32) pg MCHC (32-36) g/dl RDW (11.5-14.0) % Plt Count (150-450) K/mm3 MPV (6-9.5) fl Gran % (36.0-66.0) % Eos # (Auto) (0-0.5) Absolute Lymphs (auto) (1.0-4.6) Absolute Monos (auto) (0.0-1.3) Lymphocytes % (24.0-44.0) % Monocytes % (0.0-12.0) % Eosinophils % (0.00-5.0) % Basophils % (0.0-0.4) % Absolute Granulocytes (1.4-6.9) Basophils # (0-0.4) pO2/FiO2 Ratio % VBG pH (7.32-7.42) VBG pCO2 at Pat Temp (42-55) mm/Hg VBG pO2 at Pat Temp (25-40) mm/Hg VBG HCO3 (22-28) meq/L VBG O2 Sat (Marcus) (95-100) VBG Base Excess (-2.0-2.0) VBG Hemoglobin VBG Carboxyhemoglobin (0.0-6.9) % T HGB POC Potassium (3.5-5.1) Sodium 139 (137-145) mmol/L Potassium 4.3 (3.5-5.1) mmol/L Chloride 101 (98-107) mmol/L Carbon Dioxide 29 (22-30) mmol/L Anion Gap 13.4 (5-15) MEQ/L BUN 61 H (7-17) mg/dL Creatinine 1.96 H (0.52-1.04) mg/dL Estimated GFR 26.6 ML/MIN Glucose 173 H (74-106) mg/dL Lactic Acid (0.4-2.0) Calcium 8.2 L (8.4-10.2) mg/dL Total Bilirubin 0.50 (0.2-1.3) mg/dL AST 23 (14-36) U/L ALT 18 (0-35) U/L Alkaline Phosphatase 115 (38-126) U/L Troponin I 0.029 (0.000-0.034) ng/mL Serum Total Protein 6.7 (6.3-8.2) g/dL Albumin 3.8 (3.5-5.0) g/dL Amylase 48 (30-110) U/L Lipase 27 (23-300) U/L Ethyl Alcohol < 10 (0-10) mg/dL 02/10/18 02/10/18 02/10/18 Range/Units 17:20 17:13 17:11 WBC 5.0 (4.0-10.5) K/mm3 RBC 3.25 L (4.1-5.4) M/mm3 Hgb 10.3 L (12.0-16.0) gm/dl Hct 33.7 L (35-47) % MCV 103.7 H (78-100) fl MCH 31.6 (26-32) pg MCHC 30.6 L (32-36) g/dl RDW 18.7 H (11.5-14.0) % Plt Count 75 L (150-450) K/mm3 MPV 10.7 H (6-9.5) fl Gran % 61.5 (36.0-66.0) % Eos # (Auto) 0.09 (0-0.5) Absolute Lymphs (auto) 1.37 (1.0-4.6) Absolute Monos (auto) 0.46 (0.0-1.3) Lymphocytes % 27.3 (24.0-44.0) % Monocytes % 9.2 (0.0-12.0) % Eosinophils % 1.8 (0.00-5.0) % Basophils % 0.2 (0.0-0.4) % Absolute Granulocytes 3.08 (1.4-6.9) Basophils # 0.01 (0-0.4) pO2/FiO2 Ratio 21.0 % VBG pH 7.26 L (7.32-7.42) VBG pCO2 at Pat Temp 71 H* (42-55) mm/Hg VBG pO2 at Pat Temp 49 H (25-40) mm/Hg VBG HCO3 31.9 H* (22-28) meq/L VBG O2 Sat (Marcus) 83.9 L (95-100) VBG Base Excess 3.2 H (-2.0-2.0) VBG Hemoglobin 11.0 VBG Carboxyhemoglobin 3.3 (0.0-6.9) % T HGB POC Potassium 4.6 (3.5-5.1) Sodium (137-145) mmol/L Potassium (3.5-5.1) mmol/L Chloride (98-107) mmol/L Carbon Dioxide (22-30) mmol/L Anion Gap (5-15) MEQ/L BUN (7-17) mg/dL Creatinine (0.52-1.04) mg/dL Estimated GFR ML/MIN Glucose (74-106) mg/dL Lactic Acid 1.6 (0.4-2.0) Calcium (8.4-10.2) mg/dL Total Bilirubin (0.2-1.3) mg/dL AST (14-36) U/L ALT (0-35) U/L Alkaline Phosphatase (38-126) U/L Troponin I (0.000-0.034) ng/mL Serum Total Protein (6.3-8.2) g/dL Albumin (3.5-5.0) g/dL Amylase (30-110) U/L Lipase (23-300) U/L Ethyl Alcohol (0-10) mg/dL - Progress Progress: improved Progress Note: 02/10/18 18:50 72-year-old white female arrives with complaints that she feels like she is just not tracking well not doing well mentally she states that she apparently found herself laying on the floor "like a turtle" this morning. Patient really denies any nausea vomiting denies fevers On arrival patient is slightly surgery speech she is able to move all 4 extremities she is oriented to person place and time Patient's EKG shows a paced rhythm at 62 bpm normal axis no acute ST or T wave changes patient's chest x-ray shows a right lower lobe atelectasis versus infiltrate patient's lactate was obtained it was 1.6 patient's venous gases show a pH of 7.26 and an elevated a PCO2 of 71 patient's chemistries shows sodium 139 potassium 4.3 chloride 101 bicarbonate 29 BUN is elevated at 61 creatinine 1.96 glucose 173 amylase and lipase are within normal limits and anion gap is 13.4 blood alcohol. It on this patient is less than 10 Patient was given a DuoNeb treatment also blood cultures had been ordered and Rocephin 1 g IV has been ordered on this patient I've discussed the case with Dr. Segura who is director of institutional research for Dr. Estrada. Will admit patient for COPD with exacerbation and pneumonia. Will provide patient with DuoNeb treatments, will give patient Solu-Medrol IV continue this on the floor, will continue Rocephin Also will start Zithromax. Will give careful IV normal saline at 70 mL per hour in view of the patient's history of congestive heart failure. .. - Departure Time of Disposition: 18:54 Departure Disposition: Observation Clinical Impression: COPD with exacerbation Pneumonia Qualifiers: Pneumonia type: due to unspecified organism Laterality: right Lung location: lower lobe of lung Qualified Code(s): J18.1 - Lobar pneumonia, unspecified organism Mental status change Qualifiers: Altered mental status type: unspecified Qualified Code(s): R41.82 - Altered mental status, unspecified Condition: Fair Critical Care Time: No Referrals: IGLESIA DE LEON [Primary Care Provider] - Instructions: Chronic Obstructive Pulmonary Disease
[2018-02-10] MEDS ORDERED: Sodium Chloride 0.9% 1000 ML 1,000 ML ONE (17:27)
[2018-02-10 17:39] LABS: BASOPHIL % 0.2 % (0.0-0.4); Basophil (Absolute #) 0.01 (0-0.4); Eosinophil % 1.8 % (0.00-5.0); Eosinophil (Absolute #) 0.09 (0-0.5); Granulocyte Absolute (ANC) 3.08 (1.4-6.9); Granulocytes % 61.5 % (36.0-66.0); Hematocrit 33.7 % (35-47); Hemoglobin 10.3 gm/dl (12.0-16.0); Lymphocyte (Absolute #) 1.37 (1.0-4.6); Lymphocytes % 27.3 % (24.0-44.0); Mean Cell Volume 103.7 fl (78-100); Mean Corpuscular Hgb Concent. 30.6 g/dl (32-36); Mean Platelet Volume 10.7 fl (6-9.5); Monocyte (Absolute #) 0.46 (0.0-1.3); Monocytes % 9.2 % (0.0-12.0); Platelet Count 75 K/mm3 (150-450); Red Blood Count 3.25 M/mm3 (4.1-5.4); Red Cell Distribution Width 18.7 % (11.5-14.0)
[2018-02-10 17:40] LABS: VBG BASE EXCESS 3.2 (-2.0-2.0); VBG CARBOXYHEMOGLOBIN 3.3 % T HGB (0.0-6.9); VBG HCO3- 31.9 meq/L (22-28); VBG O2 SATURATION 83.9 (95-100); VBG POTASSIUM 4.6 (3.5-5.1); VBG pH 7.26 (7.32-7.42)
[2018-02-10] MEDS ORDERED: DUONEB 0.5-3 MG/3 ml Neb IH ONE ×2 (17:42→17:50)
[2018-02-10 17:59] LABS: ALBUMIN 3.8 g/dL (3.5-5.0); ANION GAP 13.4 MEQ/L (5-15); BILIRUBIN,TOTAL 0.5 mg/dL (0.2-1.3); Calcium 8.2 mg/dL (8.4-10.2); Creatinine 1 1.96 mg/dL (0.52-1.04); Potassium 4.3 mmol/L (3.5-5.1); Total Protein 6.7 g/dL (6.3-8.2)
[2018-02-10] MEDS ORDERED: ROCEPHIN 1 Gm-D5w 50 ml Bag** 1 G/50 ML IVPB IV STA (18:27)
[2018-02-10 18:42] LABS: Mean Corpuscular Hemoglobin 31.6 pg (26-32)
[2018-02-10] MEDS ORDERED: solu-MEDROL 125 MG IV ONE (18:55)
[2018-02-10 22:15] LABS: Amphetamine,Urine NEGATIVE (NEGATIVE); Barbiturate,Urine NEGATIVE (NEGATIVE); Benzodiazepine,Urine NEGATIVE (NEGATIVE); Cocaine,Urine NEGATIVE (NEGATIVE); Methadone,Urine NEGATIVE (NEGATIVE); Opiate,Urine NEGATIVE (NEGATIVE); PCP,Urine NEGATIVE (NEGATIVE); THC,Urine NEGATIVE (NEGATIVE)
[2018-02-10 22:19] LABS: Appearance CLEAR (CLEAR)
[2018-02-10 22:20] LABS: Bilirubin NEGATIVE (NEGATIVE); Blood NEGATIVE Ery/ul (0-5); Glucose NEGATIVE (NEGATIVE); Ketones NEGATIVE (NEGATIVE); Leukocyte Esterase NEGATIVE (NEGATIVE); Nitrite NEGATIVE (NEGATIVE); Protein,Urine Dip TRACE (Negative); Specific Gravity 1.015 (1.005-1.025); Urobilinogen NORMAL mg/dL (0-1)
[2018-02-10 22:21] LABS: Bacteria MODERATE /HPF (NEGATIVE); Epithelial Cells FEW /HPF (FEW); Hyaline Casts 0-2 /LPF (0-2); WBC 0-2 /HPF (0-5)
[2018-02-10] MEDS: Klonopin 0.5 MG PO SCH (22:35)
[2018-02-10] MEDS: LYRICA 75 MG CAP PO SCH (22:35)
[2018-02-10] MEDS: Lasix 40 MG PO SCH (22:35)
[2018-02-10] MEDS: ELIQUIS 2.5 MG TABLET PO SCH (22:35)
[2018-02-10] MEDS: Mirapex 0.5 MG Tablet PO SCH (22:35)
[2018-02-10] MEDS: solu-MEDROL 125 MG IV SCH (22:41)
[2018-02-10] MEDS: Lopressor 50 MG PO SCH (22:43)
[2018-02-11 02:41] LABS: A-aADO2 107; ABG HEMOGLOBIN 10.9; ABG POTASSIUM 4.3 (3.5-5.1); ARTERIAL BLD GAS O2 SATURATION 95.2 % (95-100); ARTERIAL BLOOD GAS BASE EXCESS 1.7 (-2.0-2.0); ARTERIAL BLOOD GAS FIO2 36 %; ARTERIAL BLOOD GAS PO2 71 mmHg (75-100); ARTERIAL BLOOD GAS pH 7.28 (7.35-7.45); CARBOXYHEMOGLOBIN 2.1 % THgb (0.0-6.9); HCO3- 29.6 (22-28); HGB O2 SAT 92.8 g/dF (94-100); Methhemoglobin 0.5 % (1.4-1.5)
[2018-02-11 02:43] LABS: ABG SITE RIGHT BRACHIAL; ALLEN TEST OK? YES; ARTERIAL BLOOD GAS PCO2 63 mmHg (35-45)
[2018-02-11] MEDS: solu-MEDROL 125 MG IV SCH ×3 (04:04→17:05)
[2018-02-11 05:47] LABS: BASOPHIL % 0.2 % (0.0-0.4); Basophil (Absolute #) 0.01 (0-0.4); Eosinophil % 2.3 % (0.00-5.0); Eosinophil (Absolute #) 0.13 (0-0.5); Granulocyte Absolute (ANC) 3.86 (1.4-6.9); Granulocytes % 69.4 % (36.0-66.0); Hematocrit 34.7 % (35-47); Hemoglobin 10.6 gm/dl (12.0-16.0); Lymphocytes % 19.8 % (24.0-44.0); Mean Cell Volume 103.3 fl (78-100); Mean Corpuscular Hemoglobin 31.5 pg (26-32); Mean Corpuscular Hgb Concent. 30.5 g/dl (32-36); Monocyte (Absolute #) 0.46 (0.0-1.3); Monocytes % 8.3 % (0.0-12.0); Platelet Count 64 K/mm3 (150-450); Red Blood Count 3.36 M/mm3 (4.1-5.4); Red Cell Distribution Width 18.7 % (11.5-14.0); White Blood Count 5.6 K/mm3 (4.0-10.5)
[2018-02-11 06:17] LABS: ALBUMIN 3.8 g/dL (3.5-5.0); ANION GAP 15.2 MEQ/L (5-15); BILIRUBIN,TOTAL 0.5 mg/dL (0.2-1.3); Calcium 8.2 mg/dL (8.4-10.2); Creatinine 1 1.57 mg/dL (0.52-1.04); Potassium 4.4 mmol/L (3.5-5.1); Total Protein 7.1 g/dL (6.3-8.2)
[2018-02-11 07:58] LABS: Slide Review 1 YES
--- NOTE | 2018-02-11 08:30 | PCM.HP ---
History of Present Illness - Chief Complaint Chief Complaint: Shortness of Breath Date: 02/11/18 History of Present Illness: is a 72 year old female. who lives at home alone on chronic oxygen therapy at 4L. She began feeling worse and had increased weakness. She had to miss her cardiology appointment last week. She slid out of her recliner without loc and was needing help getting up and was more confused and weak and thus brought to the ED. She knows this has been occuring for the past several days. She has been continueing to have increased difficulty with her independence. She is having more cough nonproductive as well as wheezing and shortness of breath. She has not had any swelling lately. She reports she is compliant with her medications. She is very afraid we are going to make her go to a fdc since she needed help up at home and she adamantly does not want to do that - Review of Systems Constitutional: Malaise, No Fever, No Chills Eyes: No Symptoms Ears, Nose, & Throat: No Symptoms Respiratory: Cough, Short Of Breath Cardiac: No Chest Pain, No Edema, No Syncope Abdominal/Gastrointestinal: No Abdominal Pain, No Nausea, No Vomiting, No Diarrhea Genitourinary Symptoms: No Dysuria Musculoskeletal: Back Pain, No Neck Pain Skin: No Rash Neurological: No Dizziness, No Focal Weakness, No Sensory Changes Psychological: No Symptoms Endocrine: No Symptoms Hematologic/Lymphatic: No Symptoms Immunological/Allergic: No Symptoms Medications & Allergies Home Medications: Home Medication List Furosemide 40 mg [Lasix 40 MG] 40 mg PO BID 12/24/16 [History Confirmed ] Pramipexole Di-HCl [Mirapex] 1 mg PO BID 12/24/16 [History Confirmed 02/11/18] Rosuvastatin Calcium [Crestor] 10 mg PO DAILY 12/25/16 [History Confirmed ] Pregabalin [Lyrica] 75 mg PO TID #90 capsule 12/26/16 [Rx Confirmed 02/11/18] Acetaminophen 500 mg [Tylenol Extra Strength 500 mg] 500 mg PO Q6H PRN PRN 09/07/17 [History Confirmed 02/11/18] Apixaban [Eliquis 5 mg Tablet] 2.5 mg PO BID 09/07/17 [History Confirmed 02/11/18] Imipramine HCl 50 mg PO HS 09/07/17 [History Confirmed 02/11/18] Losartan Potassium 25 mg PO DAILY 09/07/17 [History Confirmed 02/11/18] Sitagliptin Phosphate [Januvia] 100 mg PO DAILY 09/07/17 [History Confirmed 06/21] clonazePAM [Clonazepam] 0.5 mg PO BID 09/07/17 [History Confirmed 02/11/18] Albuterol Sulfate [Albuterol Sulfate Hfa] 2 puff IH Q4H PRN #1 [id number] [Rx Confirmed 02/11/18] Metoprolol Tartrate 100 mg PO BID #60 tablet 09/09/17 [Rx Confirmed 02/11/18] Aspirin [Aspirin EC] 81 mg PO DAILY 02/11/18 [History Confirmed 02/11/18] Allergies/Adverse Reactions: Allergies Allergy/AdvReac Type Severity Reaction Status Date / Time codeine Allergy Verified 02/10/18 17:16 Penicillins Allergy Verified 02/10/18 17:16 Sulfa (Sulfonamide Allergy Verified 02/10/18 17:16 Antibiotics) hydromorphone [From Dilaudid] AdvReac Verified 02/10/18 17:16 - Past Medical History Past Medical History: Yes Neurological History: No Pertinent History ENT History: Cataracts Cardiac History: Aneurysm, High Cholesterol, Hypertension Respiratory History: CHF, COPD, Pneumonia Endocrine Medical History: No Pertinent History, Diabetes Type II Musculoskelatal History: Arthritis GI Medical History: GERD, Hernia History: Other Pyscho-Social History: Depression Reproductive Disorders: No Pertinent History - Female History Are you now?: No - Past Surgical History Past Surgical History: Yes Neuro Surgical History: No Pertinent History Cardiac History: Vascular Surgery Respiratory Surgery: No Pertinent History GI Surgical History: Appendectomy Genitourinary Surgical Hx: No Pertinent History Musculskeletal Surgical Hx: No Pertinent History Female Surgical History: Hysterectomy Other Surgical History: cystocele. rectocele. carotidendarectomy. cataract surgery scheduled for 01/01 - Social History Smoking Status: Former smoker How long have you smoked: 50 Years Exposure to second hand smoke: No Alcohol: None Drug Use: none - Physical Exam Vital Signs: Vital Signs - 24 hr Temp Pulse Resp BP Pulse Ox 02/11/18 07:31 114 H 18 95 02/11/18 07:22 97.8 F 86 20 134/80 97 02/11/18 06:00 18 02/11/18 05:00 98.2 F 61 18 131/68 95 02/11/18 02:00 18 02/11/18 01:00 98.1 F 69 20 152/78 98 02/10/18 21:16 63 20 90 L 02/10/18 21:12 63 20 90 L 02/10/18 21:00 97.9 F 65 20 122/65 91 L 02/10/18 20:58 18 02/10/18 19:06 69 18 126/96 95 02/10/18 18:47 64 15 116/73 93 L 02/10/18 17:50 60 20 123/71 99 02/10/18 17:43 56 L 20 94 L 02/10/18 17:04 67 18 126/61 94 L Oxygen-Last 24 hours O2 Percentage 4 Liters = 36% O2 Percentage 4 Liters = 36% O2 Percentage 4 Liters = 36% O2 Percentage 3 Liters = 32% O2 Percentage 3 Liters = 32% O2 Percentage 4 Liters = 36% O2 Percentage 3 Liters = 32% General Appearance: no apparent distress, alert, obese Neurologic Exam: alert, cooperative, normal mood/affect, nml cerebellar function , nml station & gait, sensation nml, other (oreinted to place and situation and recent events. She knows it is Friday but thinks it is January 14, 2018), No motor deficits Eye Exam: PERRL/EOMI, eyes nml inspection Ears, Nose, Throat Exam: normal ENT inspection, TMs normal, pharynx normal, moist mucous membranes Neck Exam: normal inspection, non-tender, supple, full range of motion Respiratory Exam: prolonged expirations, rhonchi, wheezing Cardiovascular Exam: regular rate/rhythm, murmur Gastrointestinal/Abdomen Exam: soft, normal bowel sounds, No tenderness, No mass Back Exam: normal inspection, normal range of motion, No CVA tenderness, No vertebral tenderness Extremity Exam: normal inspection, normal range of motion, pelvis stable Skin Exam: normal color, warm, dry, No rash Lymphatic Exam: No adenopathy Results - Labs Lab/Micro Results: Accuchecks Date 02/11/18 Date 02/11/18 Date 02/10/18 Time 04:00 Time 01:00 Time 22:00 Accucheck Value: 104 Accucheck Value: 99 Accucheck Value: 153 Accucheck Value: 160 Lab Results-Last 24 Hours 02/10/18 02/10/18 02/10/18 Range/Units 17:11 17:13 17:20 WBC 5.0 (4.0-10.5) K/mm3 RBC 3.25 L (4.1-5.4) M/mm3 Hgb 10.3 L (12.0-16.0) gm/dl Hct 33.7 L (35-47) % MCV 103.7 H (78-100) fl MCH 31.6 (26-32) pg MCHC 30.6 L (32-36) g/dl RDW 18.7 H (11.5-14.0) % Plt Count 75 L (150-450) K/mm3 MPV 10.7 H (6-9.5) fl Gran % 61.5 (36.0-66.0) % Eos # (Auto) 0.09 (0-0.5) Absolute Lymphs (auto) 1.37 (1.0-4.6) Absolute Monos (auto) 0.46 (0.0-1.3) Lymphocytes % 27.3 (24.0-44.0) % Monocytes % 9.2 (0.0-12.0) % Eosinophils % 1.8 (0.00-5.0) % Basophils % 0.2 (0.0-0.4) % Absolute Granulocytes 3.08 (1.4-6.9) Basophils # 0.01 (0-0.4) Puncture Site pCO2 (35-45) mmHg pO2 (75-100) mmHg pO2/FiO2 Ratio 21.0 % Base Excess (-2.0-2.0) O2 Saturation (94-100) g/dF ABG pH (7.35-7.45) ABG HCO3 (22-28) ABG O2 Sat (Measured) (95-100) % Nito Test VBG pH 7.26 L (7.32-7.42) VBG pCO2 at Pat Temp 71 H* (42-55) mm/Hg VBG pO2 at Pat Temp 49 H (25-40) mm/Hg VBG HCO3 31.9 H* (22-28) meq/L VBG O2 Sat (Marcus) 83.9 L (95-100) VBG Base Excess 3.2 H (-2.0-2.0) VBG Hemoglobin 11.0 VBG Carboxyhemoglobin 3.3 (0.0-6.9) % T HGB A-a Gradient a/A Ratio Hemoglobin Carboxyhemoglobin (0.0-6.9) % THgb Methemoglobin (1.4-1.5) % POC Potassium 4.6 (3.5-5.1) Temperature C POC O2 Flow Rate % Sodium (137-145) mmol/L Potassium (3.5-5.1) mmol/L Chloride (98-107) mmol/L Carbon Dioxide (22-30) mmol/L Anion Gap (5-15) MEQ/L BUN (7-17) mg/dL Creatinine (0.52-1.04) mg/dL Estimated GFR ML/MIN Glucose (74-106) mg/dL Lactic Acid 1.6 (0.4-2.0) Calcium (8.4-10.2) mg/dL Total Bilirubin (0.2-1.3) mg/dL AST (14-36) U/L ALT (0-35) U/L Alkaline Phosphatase (38-126) U/L Troponin I (0.000-0.034) ng/mL Serum Total Protein (6.3-8.2) g/dL Albumin (3.5-5.0) g/dL Amylase (30-110) U/L Lipase (23-300) U/L Ur Collection Type Urine Color (YELLOW) Urine Appearance (CLEAR) Urine pH (5-6) Ur Specific [place] (1.005-1.025) Urine Protein (Negative) Urine Ketones (NEGATIVE) Urine Blood (0-5) Timbo/ul Urine Nitrite (NEGATIVE) Urine Bilirubin (NEGATIVE) Urine Urobilinogen (0-1) mg/dL Ur Leukocyte Esterase (NEGATIVE) Urine Microscopic WBC (0-5) /HPF Ur Epithelial Cells (FEW) /HPF Urine Bacteria (NEGATIVE) /HPF Hyaline Casts (0-2) /LPF Urine Glucose (NEGATIVE) mg/dL Urine Opiates Level (NEGATIVE) Ur Methadone (NEGATIVE) Urine Barbiturates (NEGATIVE) Ur Phencyclidine (PCP) (NEGATIVE) Urine Amphetamine (NEGATIVE) U Benzodiazepine Level (NEGATIVE) Urine Cocaine (NEGATIVE) Urine Marijuana (THC) (NEGATIVE) Ethyl Alcohol (0-10) mg/dL Slides for Path Review Specimen Received 02/10/18 02/10/18 02/10/18 Range/Units 17:20 17:20 17:20 WBC (4.0-10.5) K/mm3 RBC (4.1-5.4) M/mm3 Hgb (12.0-16.0) gm/dl Hct (35-47) % MCV (78-100) fl MCH (26-32) pg MCHC (32-36) g/dl RDW (11.5-14.0) % Plt Count (150-450) K/mm3 MPV (6-9.5) fl Gran % (36.0-66.0) % Eos # (Auto) (0-0.5) Absolute Lymphs (auto) (1.0-4.6) Absolute Monos (auto) (0.0-1.3) Lymphocytes % (24.0-44.0) % Monocytes % (0.0-12.0) % Eosinophils % (0.00-5.0) % Basophils % (0.0-0.4) % Absolute Granulocytes (1.4-6.9) Basophils # (0-0.4) Puncture Site pCO2 (35-45) mmHg pO2 (75-100) mmHg pO2/FiO2 Ratio % Base Excess (-2.0-2.0) O2 Saturation (94-100) g/dF ABG pH (7.35-7.45) ABG HCO3 (22-28) ABG O2 Sat (Measured) (95-100) % Nito Test VBG pH (7.32-7.42) VBG pCO2 at Pat Temp (42-55) mm/Hg VBG pO2 at Pat Temp (25-40) mm/Hg VBG HCO3 (22-28) meq/L VBG O2 Sat (Marcus) (95-100) VBG Base Excess (-2.0-2.0) VBG Hemoglobin VBG Carboxyhemoglobin (0.0-6.9) % T HGB A-a Gradient a/A Ratio Hemoglobin Carboxyhemoglobin (0.0-6.9) % THgb Methemoglobin (1.4-1.5) % POC Potassium (3.5-5.1) Temperature C POC O2 Flow Rate % Sodium 139 (137-145) mmol/L Potassium 4.3 (3.5-5.1) mmol/L Chloride 101 (98-107) mmol/L Carbon Dioxide 29 (22-30) mmol/L Anion Gap 13.4 (5-15) MEQ/L BUN 61 H (7-17) mg/dL Creatinine 1.96 H (0.52-1.04) mg/dL Estimated GFR 26.6 ML/MIN Glucose 173 H (74-106) mg/dL Lactic Acid (0.4-2.0) Calcium 8.2 L (8.4-10.2) mg/dL Total Bilirubin 0.50 (0.2-1.3) mg/dL AST 23 (14-36) U/L ALT 18 (0-35) U/L Alkaline Phosphatase 115 (38-126) U/L Troponin I 0.029 (0.000-0.034) ng/mL Serum Total Protein 6.7 (6.3-8.2) g/dL Albumin 3.8 (3.5-5.0) g/dL Amylase 48 (30-110) U/L Lipase 27 (23-300) U/L Ur Collection Type Urine Color (YELLOW) Urine Appearance (CLEAR) Urine pH (5-6) Ur Specific [place] (1.005-1.025) Urine Protein (Negative) Urine Ketones (NEGATIVE) Urine Blood (0-5) Timbo/ul Urine Nitrite (NEGATIVE) Urine Bilirubin (NEGATIVE) Urine Urobilinogen (0-1) mg/dL Ur Leukocyte Esterase (NEGATIVE) Urine Microscopic WBC (0-5) /HPF Ur Epithelial Cells (FEW) /HPF Urine Bacteria (NEGATIVE) /HPF Hyaline Casts (0-2) /LPF Urine Glucose (NEGATIVE) mg/dL Urine Opiates Level (NEGATIVE) Ur Methadone (NEGATIVE) Urine Barbiturates (NEGATIVE) Ur Phencyclidine (PCP) (NEGATIVE) Urine Amphetamine (NEGATIVE) U Benzodiazepine Level (NEGATIVE) Urine Cocaine (NEGATIVE) Urine Marijuana (THC) (NEGATIVE) Ethyl Alcohol < 10 (0-10) mg/dL Slides for Path Review Specimen Received 02/10/18 02/10/18 02/10/18 Range/Units 20:28 21:30 21:30 WBC (4.0-10.5) K/mm3 RBC (4.1-5.4) M/mm3 Hgb (12.0-16.0) gm/dl Hct (35-47) % MCV (78-100) fl MCH (26-32) pg MCHC (32-36) g/dl RDW (11.5-14.0) % Plt Count (150-450) K/mm3 MPV (6-9.5) fl Gran % (36.0-66.0) % Eos # (Auto) (0-0.5) Absolute Lymphs (auto) (1.0-4.6) Absolute Monos (auto) (0.0-1.3) Lymphocytes % (24.0-44.0) % Monocytes % (0.0-12.0) % Eosinophils % (0.00-5.0) % Basophils % (0.0-0.4) % Absolute Granulocytes (1.4-6.9) Basophils # (0-0.4) Puncture Site pCO2 (35-45) mmHg pO2 (75-100) mmHg pO2/FiO2 Ratio % Base Excess (-2.0-2.0) O2 Saturation (94-100) g/dF ABG pH (7.35-7.45) ABG HCO3 (22-28) ABG O2 Sat (Measured) (95-100) % Nito Test VBG pH (7.32-7.42) VBG pCO2 at Pat Temp (42-55) mm/Hg VBG pO2 at Pat Temp (25-40) mm/Hg VBG HCO3 (22-28) meq/L VBG O2 Sat (Marcus) (95-100) VBG Base Excess (-2.0-2.0) VBG Hemoglobin VBG Carboxyhemoglobin (0.0-6.9) % T HGB A-a Gradient a/A Ratio Hemoglobin Carboxyhemoglobin (0.0-6.9) % THgb Methemoglobin (1.4-1.5) % POC Potassium (3.5-5.1) Temperature C POC O2 Flow Rate % Sodium (137-145) mmol/L Potassium (3.5-5.1) mmol/L Chloride (98-107) mmol/L Carbon Dioxide (22-30) mmol/L Anion Gap (5-15) MEQ/L BUN (7-17) mg/dL Creatinine (0.52-1.04) mg/dL Estimated GFR ML/MIN Glucose (74-106) mg/dL Lactic Acid (0.4-2.0) Calcium (8.4-10.2) mg/dL Total Bilirubin (0.2-1.3) mg/dL AST (14-36) U/L ALT (0-35) U/L Alkaline Phosphatase (38-126) U/L Troponin I 0.033 (0.000-0.034) ng/mL Serum Total Protein (6.3-8.2) g/dL Albumin (3.5-5.0) g/dL Amylase (30-110) U/L Lipase (23-300) U/L Ur Collection Type CCMS Urine Color YELLOW (YELLOW) Urine Appearance CLEAR (CLEAR) Urine pH 5.0 (5-6) Ur Specific [place] 1.015 (1.005-1.025) Urine Protein TRACE (Negative) Urine Ketones NEGATIVE (NEGATIVE) Urine Blood NEGATIVE (0-5) Timbo/ul Urine Nitrite NEGATIVE (NEGATIVE) Urine Bilirubin NEGATIVE (NEGATIVE) Urine Urobilinogen NORMAL (0-1) mg/dL Ur Leukocyte Esterase NEGATIVE (NEGATIVE) Urine Microscopic WBC 0-2 (0-5) /HPF Ur Epithelial Cells FEW (FEW) /HPF Urine Bacteria MODERATE (NEGATIVE) /HPF Hyaline Casts 0-2 (0-2) /LPF Urine Glucose NEGATIVE (NEGATIVE) mg/dL Urine Opiates Level NEGATIVE (NEGATIVE) Ur Methadone NEGATIVE (NEGATIVE) Urine Barbiturates NEGATIVE (NEGATIVE) Ur Phencyclidine (PCP) NEGATIVE (NEGATIVE) Urine Amphetamine NEGATIVE (NEGATIVE) U Benzodiazepine Level NEGATIVE (NEGATIVE) Urine Cocaine NEGATIVE (NEGATIVE) Urine Marijuana (THC) NEGATIVE (NEGATIVE) Ethyl Alcohol (0-10) mg/dL Slides for Path Review Specimen Received 02-10-18 2200 02/10/18 02/11/18 02/11/18 Range/Units 23:30 02:40 05:25 WBC 5.6 (4.0-10.5) K/mm3 RBC 3.36 L (4.1-5.4) M/mm3 Hgb 10.6 L (12.0-16.0) gm/dl Hct 34.7 L (35-47) % MCV 103.3 H (78-100) fl MCH 31.5 (26-32) pg MCHC 30.5 L (32-36) g/dl RDW 18.7 H (11.5-14.0) % Plt Count 64 L (150-450) K/mm3 MPV 11.0 H (6-9.5) fl Gran % 69.4 H (36.0-66.0) % Eos # (Auto) 0.13 (0-0.5) Absolute Lymphs (auto) 1.10 (1.0-4.6) Absolute Monos (auto) 0.46 (0.0-1.3) Lymphocytes % 19.8 L (24.0-44.0) % Monocytes % 8.3 (0.0-12.0) % Eosinophils % 2.3 (0.00-5.0) % Basophils % 0.2 (0.0-0.4) % Absolute Granulocytes 3.86 (1.4-6.9) Basophils # 0.01 (0-0.4) Puncture Site RIGHT BRACHIAL pCO2 63 H* (35-45) mmHg pO2 71 L (75-100) mmHg pO2/FiO2 Ratio % Base Excess 1.7 (-2.0-2.0) O2 Saturation 92.8 L (94-100) g/dF ABG pH 7.28 L (7.35-7.45) ABG HCO3 29.6 H* (22-28) ABG O2 Sat (Measured) 95.2 (95-100) % Nito Test YES VBG pH (7.32-7.42) VBG pCO2 at Pat Temp (42-55) mm/Hg VBG pO2 at Pat Temp (25-40) mm/Hg VBG HCO3 (22-28) meq/L VBG O2 Sat (Marcus) (95-100) VBG Base Excess (-2.0-2.0) VBG Hemoglobin VBG Carboxyhemoglobin (0.0-6.9) % T HGB A-a Gradient 107 a/A Ratio 0.40 Hemoglobin 10.9 Carboxyhemoglobin 2.1 (0.0-6.9) % THgb Methemoglobin 0.5 L (1.4-1.5) % POC Potassium (3.5-5.1) Temperature 37.0 C POC O2 Flow Rate 36 % Sodium (137-145) mmol/L Potassium 4.3 (3.5-5.1) mmol/L Chloride (98-107) mmol/L Carbon Dioxide (22-30) mmol/L Anion Gap (5-15) MEQ/L BUN (7-17) mg/dL Creatinine (0.52-1.04) mg/dL Estimated GFR ML/MIN Glucose (74-106) mg/dL Lactic Acid (0.4-2.0) Calcium (8.4-10.2) mg/dL Total Bilirubin (0.2-1.3) mg/dL AST (14-36) U/L ALT (0-35) U/L Alkaline Phosphatase (38-126) U/L Troponin I 0.038 H* (0.000-0.034) ng/mL Serum Total Protein (6.3-8.2) g/dL Albumin (3.5-5.0) g/dL Amylase (30-110) U/L Lipase (23-300) U/L Ur Collection Type Urine Color (YELLOW) Urine Appearance (CLEAR) Urine pH (5-6) Ur Specific [place] (1.005-1.025) Urine Protein (Negative) Urine Ketones (NEGATIVE) Urine Blood (0-5) Timbo/ul Urine Nitrite (NEGATIVE) Urine Bilirubin (NEGATIVE) Urine Urobilinogen (0-1) mg/dL Ur Leukocyte Esterase (NEGATIVE) Urine Microscopic WBC (0-5) /HPF Ur Epithelial Cells (FEW) /HPF Urine Bacteria (NEGATIVE) /HPF Hyaline Casts (0-2) /LPF Urine Glucose (NEGATIVE) mg/dL Urine Opiates Level (NEGATIVE) Ur Methadone (NEGATIVE) Urine Barbiturates (NEGATIVE) Ur Phencyclidine (PCP) (NEGATIVE) Urine Amphetamine (NEGATIVE) U Benzodiazepine Level (NEGATIVE) Urine Cocaine (NEGATIVE) Urine Marijuana (THC) (NEGATIVE) Ethyl Alcohol (0-10) mg/dL Slides for Path Review YES Specimen Received 02/11/18 02/11/18 Range/Units 05:25 05:25 WBC (4.0-10.5) K/mm3 RBC (4.1-5.4) M/mm3 Hgb (12.0-16.0) gm/dl Hct (35-47) % MCV (78-100) fl MCH (26-32) pg MCHC (32-36) g/dl RDW (11.5-14.0) % Plt Count (150-450) K/mm3 MPV (6-9.5) fl Gran % (36.0-66.0) % Eos # (Auto) (0-0.5) Absolute Lymphs (auto) (1.0-4.6) Absolute Monos (auto) (0.0-1.3) Lymphocytes % (24.0-44.0) % Monocytes % (0.0-12.0) % Eosinophils % (0.00-5.0) % Basophils % (0.0-0.4) % Absolute Granulocytes (1.4-6.9) Basophils # (0-0.4) Puncture Site pCO2 (35-45) mmHg pO2 (75-100) mmHg pO2/FiO2 Ratio % Base Excess (-2.0-2.0) O2 Saturation (94-100) g/dF ABG pH (7.35-7.45) ABG HCO3 (22-28) ABG O2 Sat (Measured) (95-100) % Nito Test VBG pH (7.32-7.42) VBG pCO2 at Pat Temp (42-55) mm/Hg VBG pO2 at Pat Temp (25-40) mm/Hg VBG HCO3 (22-28) meq/L VBG O2 Sat (Marcus) (95-100) VBG Base Excess (-2.0-2.0) VBG Hemoglobin VBG Carboxyhemoglobin (0.0-6.9) % T HGB A-a Gradient a/A Ratio Hemoglobin Carboxyhemoglobin (0.0-6.9) % THgb Methemoglobin (1.4-1.5) % POC Potassium (3.5-5.1) Temperature C POC O2 Flow Rate % Sodium 140 (137-145) mmol/L Potassium 4.4 (3.5-5.1) mmol/L Chloride 101 (98-107) mmol/L Carbon Dioxide 28 (22-30) mmol/L Anion Gap 15.2 H (5-15) MEQ/L BUN 58 H (7-17) mg/dL Creatinine 1.57 H (0.52-1.04) mg/dL Estimated GFR 34.4 ML/MIN Glucose 108 H (74-106) mg/dL Lactic Acid (0.4-2.0) Calcium 8.2 L (8.4-10.2) mg/dL Total Bilirubin 0.50 (0.2-1.3) mg/dL AST 31 (14-36) U/L ALT 19 (0-35) U/L Alkaline Phosphatase 131 H (38-126) U/L Troponin I 0.039 H* (0.000-0.034) ng/mL Serum Total Protein 7.1 (6.3-8.2) g/dL Albumin 3.8 (3.5-5.0) g/dL Amylase (30-110) U/L Lipase (23-300) U/L Ur Collection Type Urine Color (YELLOW) Urine Appearance (CLEAR) Urine pH (5-6) Ur Specific [place] (1.005-1.025) Urine Protein (Negative) Urine Ketones (NEGATIVE) Urine Blood (0-5) Timbo/ul Urine Nitrite (NEGATIVE) Urine Bilirubin (NEGATIVE) Urine Urobilinogen (0-1) mg/dL Ur Leukocyte Esterase (NEGATIVE) Urine Microscopic WBC (0-5) /HPF Ur Epithelial Cells (FEW) /HPF Urine Bacteria (NEGATIVE) /HPF Hyaline Casts (0-2) /LPF Urine Glucose (NEGATIVE) mg/dL Urine Opiates Level (NEGATIVE) Ur Methadone (NEGATIVE) Urine Barbiturates (NEGATIVE) Ur Phencyclidine (PCP) (NEGATIVE) Urine Amphetamine (NEGATIVE) U Benzodiazepine Level (NEGATIVE) Urine Cocaine (NEGATIVE) Urine Marijuana (THC) (NEGATIVE) Ethyl Alcohol (0-10) mg/dL Slides for Path Review Specimen Received Accuchecks Date 02/11/18 Date 02/11/18 Date 02/10/18 Time 04:00 Time 01:00 Time 22:00 Accucheck Value: 104 Accucheck Value: 99 Accucheck Value: 153 Accucheck Value: 160 - Radiology Impressions Radiology Exams & Impressions: Radiology Procedures Category Date Time Status CHEST 1 VIEW (PORTABLE) Stat Exams 02/10/18 17:12 Taken HEAD WITHOUT CONTRAST [CT] Stat Exams 02/10/18 17:14 Taken - Other Procedures and Tests Respiratory Therapy 02/10/18 20:31 Oxygen NASAL CANNULA 4 lpm 02/10/18 21:16 neb [Respiratory Nebulizer] UD Assessment/Plan (1) COPD with exacerbation Current Visit: Yes Status: Acute Onset Date: ~02/10/18 Assessment & Plan: on solumedrol and azithromycin and treatments Code(s): J44.1 - CHRONIC OBSTRUCTIVE PULMONARY DISEASE W (ACUTE) EXACERBATION (2) Acute on chronic respiratory acidosis Current Visit: Yes Status: Acute Code(s): E87.2 - ACIDOSIS (3) Metabolic encephalopathy Current Visit: Yes Status: Acute Assessment & Plan: seems to be improving this am with the gentle hydration. suspect due to the copd exacerbation resulting in the acute on chronic respiratory acidosis as well as the uremia secondary to diuretic induced dehydration Code(s): G93.41 - METABOLIC ENCEPHALOPATHY (4) CKD (chronic kidney disease) Current Visit: Yes Status: Acute Qualifiers: Chronic kidney disease stage: stage 3 (moderate) Qualified Code(s): N18.3 - Chronic kidney disease, stage 3 (moderate) Assessment & Plan: this has worsened prior to presentation and highest bun level on recent records today which can be contributing to her encephalopathic symptoms will continue slow hydration she has no edema and previously had great difficulty controlling her swelling monitor levels Code(s): N18.9 - CHRONIC KIDNEY DISEASE, UNSPECIFIED (5) CHF (congestive heart failure) Current Visit: Yes Status: Chronic Qualifiers: Heart failure type: unspecified Heart failure chronicity: chronic Qualified Code(s): I50.9 - Heart failure, unspecified Code(s): I50.9 - HEART FAILURE, UNSPECIFIED (6) Type 2 diabetes mellitus Current Visit: Yes Status: Chronic Assessment & Plan: on sliding scale currently (7) Coronary artery disease Current Visit: Yes Status: Chronic Code(s): I25.10 - ATHSCL HEART DISEASE OF [place] CORONARY ARTERY W/O ANG PCTRS (8) Thoracic aortic aneurysm without rupture Current Visit: Yes Status: Chronic Code(s): I71.2 - THORACIC AORTIC ANEURYSM , WITHOUT RUPTURE (9) Chronic hypoxemic respiratory failure Current Visit: Yes Status: Chronic
--- NOTE | 2018-02-11 08:32 | XRAY ---
Exam: CT of the head without IV contrast from 02/10/2018. CTDI: 71.08 Comparison: CT of the head without IV contrast from 11/09/2017. Indication: 72-year-old female presents with a syncopal episode today, no prior surgery. Technique: Non-IV contrast axial images were obtained through the brain. Reconstructed coronal and sagittal images were created and reviewed. Findings: The ventricles appear within normal limits of size. No focal mass effect or midline shift is seen. No acute intracranial parenchymal hemorrhage, subarachnoid hemorrhage, or subdural or epidural hematoma is seen. There is moderate scattered bilateral periventricular and subcortical white matter changes consistent with chronic microvascular disease. I again note a focal lacunar infarct within the upper left parietal white matter medially, just above the anterior portion of the left lateral ventricle. This is unchanged. I do not see a new low attenuation acute territorial infarct. Minimal basal ganglia calcification is seen bilaterally. The cortical sulci and basilar cisterns appear unremarkable for age. Mild atherosclerotic vascular calcification is seen within the internal carotid artery siphons bilaterally and the distal right vertebral artery. I again see a chronic calcified sebaceous cyst within the scalp in the posterior vertex of the head barely to the left of midline. The calvarium of the skull appears intact. There is some minimal mucosal thickening within the posterior left maxillary sinus. There is also some minimal mucosal thickening within the ethmoid sinuse and the left margin of the sphenoid sinus. No other significant paranasal sinus opacification or air-fluid levels are seen. The mastoid air cells appear unremarkable. The middle ear cavities appear normal. Impression: 1. Moderate bilateral periventricular and subcortical white matter degenerative microvascular disease is again seen. I also note an old white matter lacunar infarct within the upper anterior medial aspect of the left parietal lobe representing no change. A new acute territorial infarct is not seen. 2. No acute intracranial bleed or other acute intracranial process is seen. 3. Minimal scattered paranasal sinus mucosal thickening.
[2018-02-11] MEDS ORDERED: ROCEPHIN 1 Gm-D5w 50 ml Bag** 1 G/50 ML IVPB IV SCH (10:00)
[2018-02-11] MEDS ORDERED: Cozaar 50 MG PO SCH (10:00)
[2018-02-11] MEDS ORDERED: MEDICATION INTERVENTION MC SCH (10:00)
[2018-02-11] MEDS ORDERED: NON-FORMULARY ITEM (Rosuvastatin Calcium [Crestor] 10 MG) PO SCH (10:00)
[2018-02-11] MEDS: Mirapex 0.5 MG Tablet PO SCH ×2 (10:25→21:00)
[2018-02-11] MEDS: Klonopin 0.5 MG PO SCH ×2 (10:25→22:59)
[2018-02-11] MEDS: LYRICA 75 MG CAP PO SCH ×3 (10:25→21:01)
[2018-02-11] MEDS: Lopressor 50 MG PO SCH ×2 (10:26→21:01)
[2018-02-11] MEDS: ELIQUIS 2.5 MG TABLET PO SCH ×2 (10:26→21:01)
[2018-02-11] MEDS: Lasix 40 MG PO SCH ×2 (10:26→17:05)
[2018-02-11] MEDS: ECOTRIN 81 MG PO SCH (10:26)
[2018-02-11] MEDS: Zithromax 500 MG/ 250 ML NaCl Premix 500 MG/250 ML IVPB IV SCH (10:27)
[2018-02-11] MEDS: Sodium Chloride 0.9% 1000 ML 1,000 ML IV SCH (10:30)
[2018-02-11] MEDS: NovoLIN R SQ PRN ×3 (11:51→21:01)
[2018-02-11] MEDS: TYLENOL EXTRA STRENGTH 500 MG PO PRN (12:55)
--- NOTE | 2018-02-11 15:02 | XRAY ---
Exam: AP portable chest film from 02/10/2018. Comparison: AP upright portable chest film from 11/09/2017. Indication: Syncopal episode today, pacemaker. Findings: The film was obtained in a lordotic projection. The heart size appears mildly enlarged. I believe this is stable. A left-sided cardiac pacemaker is seen with [address], one lead tip in the projection of the right atrium and the other lead tip within the projection of the right ventricle. The aortic knob appears prominent, but this is unchanged. Some aneurysmal distention within the thoracic aorta should be considered. This would be best assessed with CT if clinically important. There is mild tortuosity of the descending thoracic aorta which also appears somewhat prominent. Average inflation of the lungs is seen. I again note mild elevation/eventration of the right hemidiaphragm. Some chronic transversely oriented, subsegmental atelectasis or scarring is again seen at the right lung base. I also see subtle linear scarring or atelectasis within the peripheral left midlung field. Otherwise, the lung kaba appear clear. No pneumothorax or pleural fluid is seen. No acute osseous process is seen. Impression: 1. Mild cardiomegaly without evidence of acute heart failure or pulmonary edema. A left-sided cardiac pacemaker is again seen. 2. Prominence of the aortic knob and a mildly tortuous, prominent descending thoracic aorta are seen. This appears similar to 11/09/2017. Some aneurysmal distention within the thoracic aorta cannot be excluded. Further evaluation with a CT of the chest would be able to offer more information, if clinically desired. 3. Mild elevation/eventration of the right hemidiaphragm with some chronic transversely oriented subsegmental plate atelectasis or scarring adjacent to the right hemidiaphragm. This is stable. 4. There is also trace linear scarring or atelectasis within the peripheral left midlung field. The remainder the lung kaba appears clear.
[2018-02-11] MEDS ORDERED: Zofran 4 MG/2 ML VIAL IV PRN (15:21)
[2018-02-11] MEDS ORDERED: Lasix 20 MG/2 ML IV ONE (15:36)
[2018-02-11] MEDS: ZOCOR 20MG PO SCH (21:01)
[2018-02-11] MEDS ORDERED: IMIPRAMINE HCL 50 MG PO SCH (22:00)
[2018-02-12 05:54] LABS: Hematocrit 37.3 % (35-47); Hemoglobin 11.2 gm/dl (12.0-16.0); Mean Cell Volume 104.5 fl (78-100); Mean Platelet Volume 10.9 fl (6-9.5); Platelet Count 78 K/mm3 (150-450); Red Blood Count 3.57 M/mm3 (4.1-5.4); Red Cell Distribution Width 19.1 % (11.5-14.0); White Blood Count 8.7 K/mm3 (4.0-10.5)
[2018-02-12 05:55] LABS: VBG BASE EXCESS 2.3 (-2.0-2.0); VBG CARBOXYHEMOGLOBIN 4.1 % T HGB (0.0-6.9); VBG HCO3- 29.4 meq/L (22-28); VBG HEMOGLOBIN 11.2; VBG O2 SATURATION 91.9 (95-100); VBG POTASSIUM 4.5 (3.5-5.1); VBG pH 7.32 (7.32-7.42)
[2018-02-12 05:59] LABS: Mean Corpuscular Hemoglobin 31.3 pg (26-32)
[2018-02-12 06:11] LABS: ANION GAP 16.1 MEQ/L (5-15); Creatinine 1 1.34 mg/dL (0.52-1.04); Potassium 4.6 mmol/L (3.5-5.1)
[2018-02-12] MEDS: DUONEB 0.5-3 MG/3 ml Neb IH PRN ×2 (06:57→23:32)
[2018-02-12] MEDS: NovoLIN R SQ PRN ×4 (07:55→23:10)
[2018-02-12] MEDS ORDERED: Cozaar 50 MG PO SCH (09:31)
--- NOTE | 2018-02-12 09:35 | PCM.NOTE ---
Date and Time: 02/12/18930 Subjective Assessment: She is still very weak has not been able to walk on her own without assistance still having intermittent confusion as well she takes off her O2 and has immediate destauration she was previously diagnosed with sleep apnea but was noncompliant with it in the past. Objective Exam General Appearance: no apparent distress, alert Neurologic Exam: alert, oriented x 3, cooperative, normal mood/affect, nml cerebellar function, sensation nml, No motor deficits Skin Exam: normal color, warm, dry Eye Exam: PERRL, EOMI, eyes nml inspection Ears, Nose, Throat Exam: normal ENT inspection, pharynx normal, moist mucous membranes Neck Exam: normal inspection, non-tender, supple, full range of motion Respiratory Exam: prolonged expirations, wheezing Cardiovascular Exam: normal heart sounds, murmur Gastrointestinal/Abdomen Exam: soft, No tenderness, No mass Extremity Exam: normal inspection, normal range of motion Back Exam: normal inspection, normal range of motion, No CVA tenderness, No vertebral tenderness Pelvic Exam: deferred Rectal Exam: deferred OBJECTIVE DATA Vital Signs: Vital Signs - 24 hr Temp Pulse Resp BP Pulse Ox 02/12/18 07:57 97.8 F 64 20 166/80 90 L 02/12/18 06:57 63 20 92 L 02/12/18 05:42 94 L 02/12/18 05:41 18 02/12/18 04:21 98.2 F 66 20 167/84 94 L 02/12/18 02:00 22 02/11/18 23:35 98.6 F 69 24 168/79 94 L 02/11/18 22:00 20 02/11/18 20:03 98.5 F 75 22 171/82 93 L 02/11/18 18:00 20 02/11/18 15:52 98.0 F 68 20 143/84 95 02/11/18 14:00 20 02/11/18 11:15 98.3 F 64 20 122/63 97 02/11/18 10:00 20 Oxygen-Last 24 hours O2 Percentage 4 Liters = 36% O2 Percentage 4 Liters = 36% O2 Percentage 4 Liters = 36% O2 Percentage 4 Liters = 36% O2 Percentage 2 Liters = 28% Pain Assessment - Last Documented Pain Intensity 0 Pain Scale Used 0-10 Pain Scale,FLACC Intake and Output: Intake & Output 02/09/18 02/10/18 02/11/18 02/12/18 11:59 11:59 11:59 11:59 Intake Total 1504 3627 Output Total 377 2400 Balance 75 1227 Weight 98.8 kg 108.5 kg Lab Results: Accuchecks Date 02/11/18 Date 02/11/18 Date 02/11/18 Time 19:30 Time 16:30 Time 11:30 Accucheck Value: 238 Accucheck Value: 207 Accucheck Value: 249 Lab Results-Last 24 Hours 02/12/18 02/12/18 02/12/18 Range/Units 05:35 05:35 05:50 WBC 8.7 (4.0-10.5) K/mm3 RBC 3.57 L (4.1-5.4) M/mm3 Hgb 11.2 L (12.0-16.0) gm/dl Hct 37.3 (35-47) % MCV 104.5 H (78-100) fl MCH 31.3 (26-32) pg MCHC 30.0 L (32-36) g/dl RDW 19.1 H (11.5-14.0) % Plt Count 78 L (150-450) K/mm3 MPV 10.9 H (6-9.5) fl pO2/FiO2 Ratio 36.0 % VBG pH 7.32 (7.32-7.42) VBG pCO2 at Pat Temp 57 H (42-55) mm/Hg VBG pO2 at Pat Temp 58 H (25-40) mm/Hg VBG HCO3 29.4 H* (22-28) meq/L VBG O2 Sat (Marcus) 91.9 L (95-100) VBG Base Excess 2.3 H (-2.0-2.0) VBG Hemoglobin 11.2 VBG Carboxyhemoglobin 4.1 (0.0-6.9) % T HGB POC Potassium 4.5 (3.5-5.1) Sodium 141 (137-145) mmol/L Potassium 4.6 (3.5-5.1) mmol/L Chloride 102 (98-107) mmol/L Carbon Dioxide 28 (22-30) mmol/L Anion Gap 16.1 H (5-15) MEQ/L BUN 62 H (7-17) mg/dL Creatinine 1.34 H (0.52-1.04) mg/dL Estimated GFR 41.3 ML/MIN Glucose 185 H (74-106) mg/dL Calcium 8.0 L (8.4-10.2) mg/dL Radiology Exams: Radiology Procedures Category Date Time Status CHEST 1 VIEW (PORTABLE) Stat Exams 02/10/18 17:12 Completed HEAD WITHOUT CONTRAST [CT] Stat Exams 02/10/18 17:14 Completed Assessment/Plan (1) COPD with exacerbation Current Visit: Yes Status: Acute Onset Date: ~02/10/18 Assessment & Plan: continue azithromycin and wean the iv steroid continue O2 and nebs work with PT to improve strength still with the uremia and metabolic encephalopathy and periods of confusion continue gently hydration hold the lasix hold the losartan try the hydralazine for the increased htn Code(s): J44.1 - CHRONIC OBSTRUCTIVE PULMONARY DISEASE W (ACUTE) EXACERBATION (2) Acute on chronic respiratory acidosis Current Visit: Yes Status: Acute Code(s): E87.2 - ACIDOSIS (3) Metabolic encephalopathy Current Visit: Yes Status: Acute Code(s): G93.41 - METABOLIC ENCEPHALOPATHY (4) CKD (chronic kidney disease) Current Visit: Yes Status: Acute Qualifiers: Chronic kidney disease stage: stage 3 (moderate) Qualified Code(s): N18.3 - Chronic kidney disease, stage 3 (moderate) Code(s): N18.9 - CHRONIC KIDNEY DISEASE, UNSPECIFIED (5) CHF (congestive heart failure) Current Visit: Yes Status: Chronic Qualifiers: Heart failure type: unspecified Heart failure chronicity: chronic Qualified Code(s): I50.9 - Heart failure, unspecified Code(s): I50.9 - HEART FAILURE, UNSPECIFIED (6) Type 2 diabetes mellitus Current Visit: Yes Status: Chronic (7) Coronary artery disease Current Visit: Yes Status: Chronic Code(s): I25.10 - ATHSCL HEART DISEASE OF [place] CORONARY ARTERY W/O ANG PCTRS (8) Thoracic aortic aneurysm without rupture Current Visit: Yes Status: Chronic Code(s): I71.2 - THORACIC AORTIC ANEURYSM , WITHOUT RUPTURE (9) Chronic hypoxemic respiratory failure Current Visit: Yes Status: Chronic
[2018-02-12 10:19] LABS: Slide Review YES
[2018-02-12] MEDS: Lopressor 50 MG PO SCH ×2 (10:31→23:09)
[2018-02-12] MEDS: ECOTRIN 81 MG PO SCH (10:31)
[2018-02-12] MEDS: LYRICA 75 MG CAP PO SCH ×3 (10:31→23:09)
[2018-02-12] MEDS: Zithromax 500 MG/ 250 ML NaCl Premix 500 MG/250 ML IVPB IV SCH (10:32)
[2018-02-12] MEDS: Klonopin 0.5 MG PO SCH ×2 (10:32→23:08)
[2018-02-12] MEDS: Mirapex 0.5 MG Tablet PO SCH ×2 (10:32→23:09)
[2018-02-12] MEDS: ELIQUIS 2.5 MG TABLET PO SCH ×2 (10:32→23:08)
[2018-02-12] MEDS: solu-MEDROL 40 MG IV SCH (11:35)
[2018-02-12] MEDS: Apresoline 25 MG TABLET PO SCH ×4 (11:35→23:07)
[2018-02-12] MEDS: Sodium Chloride 0.9% 1000 ML 1,000 ML IV SCH (14:40)
[2018-02-12] MEDS ORDERED: DELTASONE 20 MG PO ONE (22:00)
[2018-02-12] MEDS: ZOCOR 20MG PO SCH (23:09)
[2018-02-13] MEDS: solu-MEDROL 40 MG IV SCH (00:43)
--- NOTE | 2018-02-13 08:12 | PCM.NOTE ---
Date and Time: 02/13/18805 Subjective Assessment: was feeling a little better but increased coughing and shortness of breath this mroning had had 2 nebs and still having some coughing no swelling is eating well has not been able to walk on her own due to the weakness her daughter will be bringing her home cpap machine Objective Exam General Appearance: alert, obese Neurologic Exam: alert, oriented x 3, cooperative, normal mood/affect, nml cerebellar function, sensation nml, No motor deficits Skin Exam: normal color, warm, dry Eye Exam: PERRL, EOMI, eyes nml inspection Ears, Nose, Throat Exam: normal ENT inspection, pharynx normal, moist mucous membranes Neck Exam: normal inspection, non-tender, supple, full range of motion Respiratory Exam: prolonged expirations, rhonchi, wheezing Cardiovascular Exam: regular rate/rhythm, murmur Gastrointestinal/Abdomen Exam: soft, normal bowel sounds, No tenderness, No distention, No mass Extremity Exam: normal inspection, normal range of motion, No pedal edema Back Exam: normal inspection, normal range of motion, No CVA tenderness, No vertebral tenderness Pelvic Exam: deferred Rectal Exam: deferred OBJECTIVE DATA Vital Signs: Vital Signs - 24 hr Temp Pulse Resp BP Pulse Ox 02/13/18 07:08 73 20 97 02/13/18 04:10 97.8 F 62 20 120/64 93 L 02/13/18 00:00 98.0 F 65 20 186/92 94 L 02/12/18 23:44 57 L 20 93 L 02/12/18 19:59 60 20 94 L 02/12/18 19:50 98.2 F 78 20 134/60 94 L 02/12/18 16:00 97.5 F 65 19 126/83 95 02/12/18 12:00 97.7 F 61 18 131/74 92 L Oxygen-Last 24 hours O2 Percentage 4 Liters = 36% O2 Percentage 4 Liters = 36% O2 Percentage 4 Liters = 36% O2 Percentage 4 Liters = 36% O2 Percentage 4 Liters = 36% Pain Assessment - Last Documented Pain Intensity 0 Pain Scale Used 0-10 Pain Scale Intake and Output: Intake & Output 02/10/18 02/11/18 02/12/18 02/13/18 11:59 11:59 11:59 11:59 Intake Total 1504 3627 3009 Output Total 750 2400 1850 Balance 754 1227 1159 Weight 98.8 kg 108.5 kg Lab Results: Accuchecks Accucheck Value: 232 Accucheck Value: 178 Accucheck Value: 182 Lab Results-Last 24 Hours 02/12/18 02/12/18 Range/Units 05:00 05:35 Hemoglobin A1c 6.79 H (4.5-6.0) % Slides for Path Review YES Multi-Disciplinary Progress Notes: Multi-Disciplinary Progress Notes 02/12/18 10:00 (created 02/12/18 13:45) Case Management Note by Asia Palma SPOKE WITH CHARLENE AT [facility]. PLAN TO EVAL TODAY, PRECERT INITIATED. Initialized on 02/12/18 13:45 - END OF NOTE 02/12/18 09:45 (created 02/12/18 13:43) Case Management Note by Asia Palma DR. ROUNDED AND EVALUATED. LONG DISCUSSION WITH PT AND DAUGHTER REGARDING NEEDS AT DISCHARGE. DR. DE LEON AGREES WITH REHAB STAY @ [facility] ON DISCHARGE. PT/DAUGHTER REQUESTS REFERRAL TO [facility]. WILL REQUIRE PRECERT WITH INSURANCE. PT/DAUGHTER VERBALIZED UNDERSTANDING. Initialized on 02/12/18 13:43 - END OF NOTE 02/12/18 09:25 (created 02/12/18 13:43) Case Management Note by Asia Palma REFERRALS TO [facility] AND GENERATIONS COMPLETE AT THIS TIME. Initialized on 02/12/18 13:43 - END OF NOTE 02/12/18 08:15 (created 02/12/18 13:37) Case Management Note by Asia Palma DISCHARGE PLAN REVIEWED WITH PT AND DAUGHTERKRISTIAN. PT REPORTS NORMALLY SHE IS INDEPENDENT WITH ALL ADL'S. HAS A CANE AND WALKER AT HOME AND USES HOME OXYGEN. 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 DAUGHTER REPORTS THAT PT HAS HAD INCREASED WEAKNESS OF PERIOD OF TIME, AND FEELS THAT SHE COULD BENEFIT FROM SOME ASSISTANCE IN THE HOME. [facility] AND REQUESTS REFERRAL FOR DISCHARGE. ALSO, DISCUSSED WITH PT AND DAUGHTER - GENERATIONS AREA ON AGING SERVICES. DAUGHTER/PT ARE BOTH INTERESTED IN REFERRAL. 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 PT INTERJECTS THAT SHE HAS HER OWN APARTMENT AND NORMALLY MANAGES WELL INDEPENDENTLY. DAUGHTER DISAGREES. ALSO, DISCUSSED REHAB STAY AT [facility] ON DISCHARGE, WILL HAVE TO BE PRECERTED PT'S HAS A MANAGED MEDICARE PLAN. DAUGHTER REPORTS THAT SHE WILL DISCUSS WITH DR. DE LEON WELL. WILL FOLLOW FOR ALL DC NEEDS. Initialized on 02/12/18 13:37 - END OF NOTE Assessment/Plan (1) COPD with exacerbation Current Visit: Yes Status: Acute Onset Date: ~02/10/18 Assessment & Plan: continue azithromycin and wean the iv steroid to prednisone continue O2 and nebs need to get home cpap to restart work with PT to improve strength she has severe deconditining due to prolonged respiratory failure acute on chronic and is very weak and unsteady she lives alone she would greatly benefit from rehab stay with great potential for full recovery still with the uremia and metabolic encephalopathy and periods of confusion repeat labs and vbg continue gently hydration hold the lasix hold the losartan continue the hydralazine for the increased htn which is improved Code(s): J44.1 - CHRONIC OBSTRUCTIVE PULMONARY DISEASE W (ACUTE) EXACERBATION (2) Acute on chronic respiratory acidosis Current Visit: Yes Status: Acute Onset Date: ~02/12/18 Code(s): E87.2 - ACIDOSIS (3) Metabolic encephalopathy Current Visit: Yes Status: Acute Onset Date: ~02/12/18 Code(s): G93.41 - METABOLIC ENCEPHALOPATHY (4) CKD (chronic kidney disease) Current Visit: Yes Status: Acute Onset Date: ~02/12/18 Qualifiers: Chronic kidney disease stage: stage 3 (moderate) Qualified Code(s): N18.3 - Chronic kidney disease, stage 3 (moderate) Code(s): N18.9 - CHRONIC KIDNEY DISEASE, UNSPECIFIED (5) CHF (congestive heart failure) Current Visit: Yes Status: Chronic Qualifiers: Heart failure type: unspecified Heart failure chronicity: chronic Qualified Code(s): I50.9 - Heart failure, unspecified Code(s): I50.9 - HEART FAILURE, UNSPECIFIED (6) Type 2 diabetes mellitus Current Visit: Yes Status: Chronic (7) Coronary artery disease Current Visit: Yes Status: Chronic Code(s): I25.10 - ATHSCL HEART DISEASE OF [place] CORONARY ARTERY W/O ANG PCTRS (8) Thoracic aortic aneurysm without rupture Current Visit: Yes Status: Chronic Code(s): I71.2 - THORACIC AORTIC ANEURYSM , WITHOUT RUPTURE (9) Chronic hypoxemic respiratory failure Current Visit: Yes Status: Chronic
[2018-02-13] MEDS: Mirapex 0.5 MG Tablet PO SCH ×2 (10:14→21:49)
[2018-02-13] MEDS: DELTASONE 20 MG PO SCH (10:14)
[2018-02-13] MEDS: LYRICA 75 MG CAP PO SCH ×3 (10:15→21:49)
[2018-02-13] MEDS: ECOTRIN 81 MG PO SCH (10:15)
[2018-02-13] MEDS: Klonopin 0.5 MG PO SCH ×2 (10:15→21:48)
[2018-02-13] MEDS: Zithromax 250 MG TABLET PO SCH (10:16)
[2018-02-13] MEDS: ELIQUIS 2.5 MG TABLET PO SCH ×2 (10:16→21:48)
[2018-02-13] MEDS: Apresoline 25 MG TABLET PO SCH ×4 (10:17→21:48)
[2018-02-13] MEDS: Lopressor 50 MG PO SCH ×2 (10:17→21:49)
[2018-02-13] MEDS: NovoLIN R SQ PRN ×2 (12:00→21:50)
[2018-02-13] MEDS: ZOCOR 20MG PO SCH (21:49)
[2018-02-14 06:20] LABS: VBG BASE EXCESS 2.8 (-2.0-2.0); VBG CARBOXYHEMOGLOBIN 4.8 % T HGB (0.0-6.9); VBG HCO3- 29.3 meq/L (22-28); VBG HEMOGLOBIN 10.8; VBG O2 SATURATION 95.2 (95-100); VBG POTASSIUM 4.8 (3.5-5.1); VBG pH 7.35 (7.32-7.42)
[2018-02-14 06:41] LABS: Calcium 8.1 mg/dL (8.4-10.2); Creatinine 1 1.16 mg/dL (0.52-1.04); Potassium 4.6 mmol/L (3.5-5.1)
[2018-02-14 06:50] LABS: Hematocrit 35.9 % (35-47); Hemoglobin 10.6 gm/dl (12.0-16.0); Mean Cell Volume 106.8 fl (78-100); Mean Corpuscular Hemoglobin 31.5 pg (26-32); Mean Corpuscular Hgb Concent. 29.5 g/dl (32-36); Mean Platelet Volume 11.1 fl (6-9.5); Platelet Count 84 K/mm3 (150-450); Red Blood Count 3.36 M/mm3 (4.1-5.4); Red Cell Distribution Width 19.6 % (11.5-14.0); White Blood Count 9.4 K/mm3 (4.0-10.5)
[2018-02-14] MEDS: Mirapex 0.5 MG Tablet PO SCH ×2 (09:55→21:48)
[2018-02-14] MEDS: Klonopin 0.5 MG PO SCH ×2 (09:55→21:48)
[2018-02-14] MEDS: DELTASONE 20 MG PO SCH (09:55)
[2018-02-14] MEDS: LYRICA 75 MG CAP PO SCH ×3 (09:56→21:48)
[2018-02-14] MEDS: ELIQUIS 2.5 MG TABLET PO SCH ×2 (09:56→21:49)
[2018-02-14] MEDS: Lopressor 50 MG PO SCH ×2 (09:56→21:49)
[2018-02-14] MEDS: Apresoline 25 MG TABLET PO SCH ×4 (09:56→21:49)
[2018-02-14] MEDS: ECOTRIN 81 MG PO SCH (09:56)
[2018-02-14] MEDS: Zithromax 250 MG TABLET PO SCH (09:56)
--- NOTE | 2018-02-14 10:00 | PCM.NOTE ---
Date and Time: 02/14/18 0953 Subjective Assessment: today on walking in the room she is very confused standing holding on to the side of the bed shacking her oxygen is off and she is yelling for help which is why we rushed in. She has oxygen placed back on and helped to bed with 2 people. She calms down but is tearful due to the weakness and confusion she thought she would be able to stand up and get her oxygen untangled without help but got confused and short of breath. She has been feeling more swelling as well difficulty breathing was improving but still very weak. Objective Exam General Appearance: anxiety, obese Neurologic Exam: alert, cooperative, nml cerebellar function, motor deficits, confusion, No normal mood/affect, No nml station & gait Skin Exam: normal color, warm, dry Eye Exam: PERRL, EOMI, eyes nml inspection Ears, Nose, Throat Exam: normal ENT inspection, pharynx normal, moist mucous membranes Neck Exam: normal inspection, non-tender, supple, full range of motion Respiratory Exam: respiratory distress (pursed lip breathing with tachypnea that improves after replacement of the nc O2), crackles/rales, rhonchi, wheezing Cardiovascular Exam: regular rate/rhythm, normal heart sounds Gastrointestinal/Abdomen Exam: soft, No tenderness, No mass Extremity Exam: normal inspection, normal range of motion Back Exam: normal inspection, normal range of motion, No CVA tenderness, No vertebral tenderness Pelvic Exam: deferred Rectal Exam: deferred OBJECTIVE DATA Vital Signs: Vital Signs - 24 hr Temp Pulse Resp BP Pulse Ox 02/14/18 07:16 98.6 F 61 18 132/62 92 L 02/14/18 06:00 18 02/14/18 04:00 97.8 F 61 19 189/82 95 02/14/18 02:00 16 02/14/18 00:00 98.6 F 67 16 166/72 94 L 02/13/18 22:00 16 02/13/18 20:00 98.5 F 70 15 164/74 99 02/13/18 19:55 69 20 93 L 02/13/18 18:00 20 02/13/18 16:00 66 20 144/81 94 L 02/13/18 14:00 20 02/13/18 11:38 97.7 F 109 H 20 149/74 94 L Oxygen-Last 24 hours O2 Percentage 4 Liters = 36% O2 Percentage 4 Liters = 36% O2 Percentage 4 Liters = 36% O2 Percentage 4 Liters = 36% O2 Percentage 4 Liters = 36% O2 Percentage 4 Liters = 36% Pain Assessment - Last Documented Pain Intensity 0 Pain Scale Used FLACC Intake and Output: Intake & Output 02/11/18 02/12/18 02/13/18 02/14/18 11:59 11:59 11:59 11:59 Intake Total 1504 3627 3129 1680 Output Total 750 2400 1850 1050 Balance 754 1227 1279 630 Weight 98.8 kg 108.5 kg 108.1 kg 111.2 kg Lab Results: Accuchecks Date 02/13/18 Date 02/13/18 Time 21:56 Time 16:30 Accucheck Value: 261 Accucheck Value: 201 Lab Results-Last 24 Hours 02/14/18 02/14/18 02/14/18 Range/Units 05:40 05:40 06:08 WBC 9.4 (4.0-10.5) K/mm3 RBC 3.36 L (4.1-5.4) M/mm3 Hgb 10.6 L (12.0-16.0) gm/dl Hct 35.9 (35-47) % MCV 106.8 H (78-100) fl MCH 31.5 (26-32) pg MCHC 29.5 L (32-36) g/dl RDW 19.6 H (11.5-14.0) % Plt Count 84 L (150-450) K/mm3 MPV 11.1 H (6-9.5) fl pO2/FiO2 Ratio 21.0 % VBG pH 7.35 (7.32-7.42) VBG pCO2 at Pat Temp 53 (42-55) mm/Hg VBG pO2 at Pat Temp 64 H (25-40) mm/Hg VBG HCO3 29.3 H* (22-28) meq/L VBG O2 Sat (Marcus) 95.2 (95-100) VBG Base Excess 2.8 H (-2.0-2.0) VBG Hemoglobin 10.8 VBG Carboxyhemoglobin 4.8 (0.0-6.9) % T HGB POC Potassium 4.8 (3.5-5.1) Sodium 141 (137-145) mmol/L Potassium 4.6 (3.5-5.1) mmol/L Chloride 105 (98-107) mmol/L Carbon Dioxide 27 (22-30) mmol/L Anion Gap 13.0 (5-15) MEQ/L BUN 55 H (7-17) mg/dL Creatinine 1.16 H (0.52-1.04) mg/dL Estimated GFR 48.8 ML/MIN Glucose 144 H (74-106) mg/dL Calcium 8.1 L (8.4-10.2) mg/dL Multi-Disciplinary Progress Notes: Multi-Disciplinary Progress Notes 02/13/18 11:12 Case Management Note by Pao Juarez LEVEL I WEB APPROVED, NO LEVEL II REQUIRED, ON PAPER CHART Initialized on 02/13/18 11:12 - END OF NOTE Assessment/Plan (1) COPD with exacerbation Current Visit: Yes Status: Acute Onset Date: ~02/10/18 Assessment & Plan: continue azithromycin and prednisone continue O2 and nebs need to get home cpap to restart she is having it brought today hypercapnea is improving this am work with PT to improve strength and balance currently not safe ambulating on her own she has severe deconditioning due to prolonged respiratory failure acute on chronic and is very weak and unsteady she lives alone she would greatly benefit from rehab stay with great potential for full recovery still with the uremia and metabolic encephalopathy and periods of confusion continue gently hydration hold the lasix hold the losartan continue the hydralazine for the increased htn which is improved but spiked early this am as she said she was having difficulty sleeping Code(s): J44.1 - CHRONIC OBSTRUCTIVE PULMONARY DISEASE W (ACUTE) EXACERBATION (2) Acute on chronic respiratory acidosis Current Visit: Yes Status: Acute Onset Date: ~02/12/18 Code(s): E87.2 - ACIDOSIS (3) Metabolic encephalopathy Current Visit: Yes Status: Acute Onset Date: ~02/12/18 Code(s): G93.41 - METABOLIC ENCEPHALOPATHY (4) CKD (chronic kidney disease) Current Visit: Yes Status: Acute Onset Date: ~02/12/18 Qualifiers: Chronic kidney disease stage: stage 3 (moderate) Qualified Code(s): N18.3 - Chronic kidney disease, stage 3 (moderate) Code(s): N18.9 - CHRONIC KIDNEY DISEASE, UNSPECIFIED (5) CHF (congestive heart failure) Current Visit: Yes Status: Chronic Qualifiers: Heart failure type: unspecified Heart failure chronicity: chronic Qualified Code(s): I50.9 - Heart failure, unspecified Code(s): I50.9 - HEART FAILURE, UNSPECIFIED (6) Type 2 diabetes mellitus Current Visit: Yes Status: Chronic (7) Coronary artery disease Current Visit: Yes Status: Chronic Code(s): I25.10 - ATHSCL HEART DISEASE OF [place] CORONARY ARTERY W/O ANG PCTRS (8) Thoracic aortic aneurysm without rupture Current Visit: Yes Status: Chronic Code(s): I71.2 - THORACIC AORTIC ANEURYSM , WITHOUT RUPTURE (9) Chronic hypoxemic respiratory failure Current Visit: Yes Status: Chronic
[2018-02-14] MEDS ORDERED: LASIX 20 MG ONE (10:01)
[2018-02-14] MEDS: LASIX 20 MG PO SCH (10:05)
[2018-02-14] MEDS: DUONEB 0.5-3 MG/3 ml Neb IH PRN ×2 (10:06→19:17)
[2018-02-14 11:35] LABS: Slide Review YES
[2018-02-14] MEDS: ZOCOR 20MG PO SCH (21:49)
[2018-02-14] MEDS: NovoLIN R SQ PRN (21:55)
[2018-02-14] MEDS ORDERED: NORCO 5/325 MG PO PRN (22:45)
[2018-02-14] MEDS ORDERED: Nitrostat 0.4 MG Tablet SL PRN (22:45)
[2018-02-14] MEDS ORDERED: Lasix 40 MG PO ONE (23:41)
[2018-02-15] MEDS: ECOTRIN 81 MG PO SCH (08:46)
[2018-02-15] MEDS: Apresoline 25 MG TABLET PO SCH ×4 (08:46→21:26)
[2018-02-15] MEDS: LASIX 20 MG PO SCH (08:46)
[2018-02-15] MEDS: Mirapex 0.5 MG Tablet PO SCH ×2 (08:46→21:27)
[2018-02-15] MEDS: Klonopin 0.5 MG PO SCH ×2 (08:46→21:27)
[2018-02-15] MEDS: Zithromax 250 MG TABLET PO SCH (08:46)
[2018-02-15] MEDS: LYRICA 75 MG CAP PO SCH ×3 (08:47→21:27)
[2018-02-15] MEDS: Lopressor 50 MG PO SCH ×2 (08:47→21:27)
[2018-02-15] MEDS: TYLENOL EXTRA STRENGTH 500 MG PO PRN ×2 (08:47→20:16)
[2018-02-15] MEDS: ELIQUIS 2.5 MG TABLET PO SCH ×2 (09:04→21:27)
[2018-02-15] MEDS: DELTASONE 20 MG PO SCH (09:04)
[2018-02-15] MEDS: Imdur 30 MG PO SCH (11:44)
[2018-02-15] MEDS ORDERED: LASIX 20 MG PO ONE (12:00)
[2018-02-15] MEDS ORDERED: Ambien 5 MG Tablet PO PRN (13:19)
--- NOTE | 2018-02-15 13:22 | PCM.NOTE ---
Date and Time: 02/15/18 1317 Subjective Assessment: She was attempting to walk yesterday in the hallway with the aid and did well early in the day once on the second episode had to stop short due to pain in her right side of her chest and right shoulder then in her epigastric area. She received a nitro with minimal relief and ekg and troponin unchanged with rest and a pain medication it resolved. She also received an additional po dose of lasix with this. Her breathing still has difficulty and she is not sleeping well. Her daughter was going to bring her home cpap yesterday but now is planning to today. She remains very weak and fatigued. No chest pain currently. Objective Exam General Appearance: mild distress (pursed lip breathing fatigued appearence), obese Neurologic Exam: alert, oriented x 3, cooperative Skin Exam: warm, dry Eye Exam: No pale conjunctivae Ears, Nose, Throat Exam: dry mucous membranes Neck Exam: non-tender, supple Respiratory Exam: crackles/rales (bibasilar), rhonchi, wheezing Cardiovascular Exam: regular rate/rhythm, normal heart sounds, normal peripheral pulses Gastrointestinal/Abdomen Exam: soft, normal bowel sounds, No tenderness Extremity Exam: normal inspection, No calf tenderness, No pedal edema OBJECTIVE DATA Vital Signs: Vital Signs - 24 hr Temp Pulse Resp BP BP Pulse Ox 02/15/18 12:00 97.4 F 60 18 173/83 98 02/15/18 08:00 97.7 F 64 18 168/74 97 02/15/18 06:00 20 02/15/18 04:00 98.2 F 70 20 177/86 92 L 02/15/18 02:00 20 02/14/18 23:49 98.2 F 62 19 148/70 93 L 02/14/18 22:52 62 148/70 02/14/18 22:00 20 02/14/18 20:00 98.1 F 112 H 18 183/88 93 L 02/14/18 19:18 65 18 94 L 02/14/18 18:00 18 02/14/18 16:00 98.4 F 62 18 118/62 89 L 02/14/18 14:00 18 Oxygen-Last 24 hours O2 Percentage 4 Liters = 36% O2 Percentage 4 Liters = 36% O2 Percentage 4 Liters = 36% O2 Percentage 4 Liters = 36% O2 Percentage 4 Liters = 36% O2 Percentage 4 Liters = 36% Pain Assessment - Last Documented Pain Intensity 5 Pain Scale Used 0-10 Pain Scale Intake and Output: Intake & Output 02/13/18 02/14/18 02/15/18 02/16/18 11:59 11:59 11:59 11:59 Intake Total 3129 1680 1800 Output Total 1850 1050 4800 Balance 1279 630 -3000 Weight 108.1 kg 111.2 kg Lab Results: Accuchecks Date 02/15/18 Date 02/14/18 Date 02/14/18 Time 07:30 Time 21:30 Time 16:30 Accucheck Value: 146 Accucheck Value: 229 Accucheck Value: 125 Lab Results-Last 24 Hours 02/14/18 Range/Units 23:32 Troponin I < 0.012 (0.000-0.034) ng/mL Assessment/Plan (1) COPD with exacerbation Current Visit: Yes Status: Acute Onset Date: ~02/10/18 Assessment & Plan: continue azithromycin day 5/5 and prednisone continue O2 and nebs need to get home cpap to restart she is having it brought today hypercapnea is improving new chest pain yesterday with the worsening bp add imdur today 30 mg daily work with PT to improve strength and balance currently not safe ambulating on her own she has severe deconditioning due to prolonged respiratory failure acute on chronic and is very weak and unsteady she lives alone she would greatly benefit from rehab stay with great potential for full recovery still with the uremia and metabolic encephalopathy and periods of confusion that seem to be improving with the medication changes will add back more lasix today with the increased shortness of breath and crackles continue to hold the losartan and continue the new hydralazine + imdur echo from 09/2017 reviewed with preserved EF Code(s): J44.1 - CHRONIC OBSTRUCTIVE PULMONARY DISEASE W (ACUTE) EXACERBATION (2) Acute on chronic respiratory acidosis Current Visit: Yes Status: Acute Onset Date: ~02/12/18 Code(s): E87.2 - ACIDOSIS (3) Metabolic encephalopathy Current Visit: Yes Status: Acute Onset Date: ~02/12/18 Code(s): G93.41 - METABOLIC ENCEPHALOPATHY (4) CKD (chronic kidney disease) Current Visit: Yes Status: Acute Onset Date: ~02/12/18 Qualifiers: Chronic kidney disease stage: stage 3 (moderate) Qualified Code(s): N18.3 - Chronic kidney disease, stage 3 (moderate) Code(s): N18.9 - CHRONIC KIDNEY DISEASE, UNSPECIFIED (5) CHF (congestive heart failure) Current Visit: Yes Status: Chronic Qualifiers: Heart failure type: unspecified Heart failure chronicity: chronic Qualified Code(s): I50.9 - Heart failure, unspecified Code(s): I50.9 - HEART FAILURE, UNSPECIFIED (6) Type 2 diabetes mellitus Current Visit: Yes Status: Chronic (7) Coronary artery disease Current Visit: Yes Status: Chronic Code(s): I25.10 - ATHSCL HEART DISEASE OF [place] CORONARY ARTERY W/O ANG PCTRS (8) Thoracic aortic aneurysm without rupture Current Visit: Yes Status: Chronic Code(s): I71.2 - THORACIC AORTIC ANEURYSM , WITHOUT RUPTURE (9) Chronic hypoxemic respiratory failure Current Visit: Yes Status: Chronic
[2018-02-15] MEDS: DUONEB 0.5-3 MG/3 ml Neb IH PRN (16:18)
[2018-02-15] MEDS: NovoLIN R SQ PRN ×2 (16:55→21:28)
[2018-02-15] MEDS: ZOCOR 20MG PO SCH (21:27)
[2018-02-16 06:08] LABS: Hematocrit 35.5 % (35-47); Hemoglobin 10.6 gm/dl (12.0-16.0); Mean Cell Volume 103.5 fl (78-100); Mean Corpuscular Hemoglobin 30.9 pg (26-32); Mean Corpuscular Hgb Concent. 29.9 g/dl (32-36); Mean Platelet Volume 10.2 fl (6-9.5); Platelet Count 92 K/mm3 (150-450); Red Blood Count 3.43 M/mm3 (4.1-5.4); White Blood Count 5.9 K/mm3 (4.0-10.5)
[2018-02-16 06:26] LABS: ANION GAP 11.4 MEQ/L (5-15); BLOOD UREA NITROGEN 42 mg/dL (7-17); CHLORIDE 100 mmol/L (98-107); Calcium 8.3 mg/dL (8.4-10.2); Carbon Dioxide 35 mmol/L (22-30); Creatinine 1 0.85 mg/dL (0.52-1.04); Glucose 79 mg/dL (74-106); SODIUM 143 mmol/L (137-145)
[2018-02-16] MEDS: Lopressor 50 MG PO SCH ×2 (10:57→22:02)
[2018-02-16] MEDS: Imdur 30 MG PO SCH (10:57)
[2018-02-16] MEDS: Klonopin 0.5 MG PO SCH ×2 (10:57→22:02)
[2018-02-16] MEDS: Zithromax 250 MG TABLET PO SCH (10:57)
[2018-02-16] MEDS: DELTASONE 20 MG PO SCH (10:57)
[2018-02-16] MEDS: Lasix 40 MG PO SCH (10:57)
[2018-02-16] MEDS: Mirapex 0.5 MG Tablet PO SCH ×2 (10:57→22:01)
[2018-02-16] MEDS: ECOTRIN 81 MG PO SCH (10:57)
[2018-02-16] MEDS: ELIQUIS 2.5 MG TABLET PO SCH ×2 (10:57→22:02)
[2018-02-16] MEDS: Apresoline 25 MG TABLET PO SCH ×3 (10:57→22:02)
[2018-02-16] MEDS: LYRICA 75 MG CAP PO SCH ×3 (10:58→22:02)
[2018-02-16] MEDS ORDERED: Lasix 40 MG PO ONE (14:43)
--- NOTE | 2018-02-16 14:44 | PCM.NOTE ---
Date and Time: 02/16/18 1442 Subjective Assessment: slept more last night so she is feeling a little better today but more coughing and still needing the breathing treatment.s She has cpap now here but courtney mancia tried to hook it up respiratory therapy coming now to help her work on it. She is still unsteady on her feet but no chest pain now. No orhtopnea. Still requires assistance with walking and dressing currently but improved today compared to yesterday. Objective Exam General Appearance: alert, obese Neurologic Exam: alert, oriented x 3, cooperative, normal mood/affect, nml cerebellar function, sensation nml, No motor deficits Skin Exam: normal color, warm, dry Eye Exam: PERRL, EOMI, eyes nml inspection Ears, Nose, Throat Exam: normal ENT inspection, pharynx normal, moist mucous membranes Neck Exam: normal inspection, non-tender, supple, full range of motion Respiratory Exam: rhonchi, wheezing Cardiovascular Exam: murmur Gastrointestinal/Abdomen Exam: soft, No tenderness, No mass Extremity Exam: normal inspection, normal range of motion, pedal edema (1+ pgae LE) Back Exam: normal inspection, normal range of motion, No CVA tenderness, No vertebral tenderness Pelvic Exam: deferred Rectal Exam: deferred OBJECTIVE DATA Vital Signs: Vital Signs - 24 hr Temp Pulse Resp BP Pulse Ox 02/16/18 14:00 18 02/16/18 12:00 98.0 F 62 18 130/62 96 02/16/18 11:43 64 20 95 02/16/18 10:00 20 02/16/18 07:47 97.9 F 63 18 167/77 94 L 02/16/18 06:00 16 02/16/18 04:00 63 16 139/68 94 L 02/16/18 02:00 16 02/16/18 00:00 63 18 143/65 02/15/18 22:00 19 02/15/18 20:00 97.9 F 75 18 185/82 91 L 02/15/18 19:42 71 18 95 02/15/18 17:16 16 02/15/18 16:18 68 20 95 02/15/18 15:16 97.4 F 94 H 16 173/88 96 Oxygen-Last 24 hours O2 Percentage 4 Liters = 36% O2 Percentage 4 Liters = 36% O2 Percentage 4 Liters = 36% O2 Percentage 4 Liters = 36% O2 Percentage 4 Liters = 36% Pain Assessment - Last Documented Pain Intensity 3 Pain Scale Used FLACC Intake and Output: Intake & Output 02/14/18 02/15/18 02/16/18 02/17/18 11:59 11:59 11:59 11:59 Intake Total 1680 1800 1540 120 Output Total 1050 4800 2350 450 Balance 630 -3000 -810 -330 Weight 111.2 kg 106.5 kg 97.9 kg Lab Results: Accuchecks Date 02/16/18 Date 02/16/18 Date 02/15/18 Date 02/15/18 Time 11:30 Time 07:30 Time 21:30 Time 16:55 Accucheck Value: 186 Accucheck Value: 93 Accucheck Value: 250 Accucheck Value: 226 Lab Results-Last 24 Hours 02/16/18 02/16/18 Range/Units 05:00 05:00 WBC 5.9 (4.0-10.5) K/mm3 RBC 3.43 L (4.1-5.4) M/mm3 Hgb 10.6 L (12.0-16.0) gm/dl Hct 35.5 (35-47) % MCV 103.5 H (78-100) fl MCH 30.9 (26-32) pg MCHC 29.9 L (32-36) g/dl RDW 19.0 H (11.5-14.0) % Plt Count 92 L (150-450) K/mm3 MPV 10.2 H (6-9.5) fl Sodium 143 (137-145) mmol/L Potassium 4.0 (3.5-5.1) mmol/L Chloride 100 (98-107) mmol/L Carbon Dioxide 35 H (22-30) mmol/L Anion Gap 11.4 (5-15) MEQ/L BUN 42 H (7-17) mg/dL Creatinine 0.85 (0.52-1.04) mg/dL Estimated GFR > 60.0 ML/MIN Glucose 79 (74-106) mg/dL Calcium 8.3 L (8.4-10.2) mg/dL Slides for Path Review Multi-Disciplinary Progress Notes: Multi-Disciplinary Progress Notes 02/16/18 10:15 (created 02/16/18 10:48) Case Management Note by Asia Palma CALL TO [facility], SPOKE WITH KELSI, REPORTS NO WORD FROM INSURANCE REGARDING REHAB STAY. KELSI REPORTS THAT SHE WILL SEND UPDATED INFORMATION TODAY, AND FOLLOW UP WITH INSURANCE. REPORTS THAT SHE IS HOPEFUL THEY WILL HAVE AN ANSWER TODAY. Initialized on 02/16/18 10:48 - END OF NOTE Assessment/Plan (1) COPD with exacerbation Current Visit: Yes Status: Acute Onset Date: ~02/10/18 Assessment & Plan: continue prednisone continue O2 and nebs working to try to repair her home cpap to restart it is here now hypercapnea is improving no further chest pain add imdur today 30 mg daily work with PT to improve strength and balance currently not safe ambulating on her own she has severe deconditioning due to prolonged respiratory failure acute on chronic and is very weak and unsteady she lives alone she would greatly benefit from rehab stay with great potential for full recovery still with the uremia but improving and metabolic encephalopathy and periods of confusion are lessening significantly in the last 24 hours and seem to be improving with the medication changes will add back more lasix today with the increased shortness of breath continue to hold the losartan and continue the new hydralazine + imdur echo from 09/2017 reviewed with preserved EF she is improving but still requires assistance wtih minimal tasks of walking, bathing and clothing herself and would benefit from being in rehab stay for a few weeks to improve her adls and prevent the recurrent admissions she has been having. now and amber is awaiting word from the insurance company on approval before they can take her. Code(s): J44.1 - CHRONIC OBSTRUCTIVE PULMONARY DISEASE W (ACUTE) EXACERBATION (2) Acute on chronic respiratory acidosis Current Visit: Yes Status: Acute Onset Date: ~02/12/18 Code(s): E87.2 - ACIDOSIS (3) Metabolic encephalopathy Current Visit: Yes Status: Resolved Onset Date: ~02/12/18 Code(s): G93.41 - METABOLIC ENCEPHALOPATHY (4) CKD (chronic kidney disease) Current Visit: Yes Status: Acute Onset Date: ~02/12/18 Qualifiers: Chronic kidney disease stage: stage 3 (moderate) Qualified Code(s): N18.3 - Chronic kidney disease, stage 3 (moderate) Code(s): N18.9 - CHRONIC KIDNEY DISEASE, UNSPECIFIED (5) CHF (congestive heart failure) Current Visit: Yes Status: Chronic Qualifiers: Heart failure type: unspecified Heart failure chronicity: chronic Qualified Code(s): I50.9 - Heart failure, unspecified Code(s): I50.9 - HEART FAILURE, UNSPECIFIED (6) Type 2 diabetes mellitus Current Visit: Yes Status: Chronic (7) Coronary artery disease Current Visit: Yes Status: Chronic Code(s): I25.10 - ATHSCL HEART DISEASE OF [place] CORONARY ARTERY W/O ANG PCTRS (8) Thoracic aortic aneurysm without rupture Current Visit: Yes Status: Chronic Code(s): I71.2 - THORACIC AORTIC ANEURYSM , WITHOUT RUPTURE (9) Chronic hypoxemic respiratory failure Current Visit: Yes Status: Chronic
[2018-02-16] MEDS: TYLENOL EXTRA STRENGTH 500 MG PO PRN (15:19)
[2018-02-16] MEDS: NovoLIN R SQ PRN ×2 (17:03→22:06)
[2018-02-16] MEDS: ZOCOR 20MG PO SCH (22:02)
[2018-02-17] MEDS: TYLENOL EXTRA STRENGTH 500 MG PO PRN (01:21)
[2018-02-17] MEDS: LYRICA 75 MG CAP PO SCH ×3 (09:40→21:48)
[2018-02-17] MEDS: ECOTRIN 81 MG PO SCH (09:40)
[2018-02-17] MEDS: Lasix 40 MG PO SCH (09:41)
[2018-02-17] MEDS: DELTASONE 20 MG PO SCH (09:41)
[2018-02-17] MEDS: Mirapex 0.5 MG Tablet PO SCH ×2 (09:41→21:48)
[2018-02-17] MEDS: Imdur 30 MG PO SCH (09:42)
[2018-02-17] MEDS: Lopressor 50 MG PO SCH ×2 (09:42→21:48)
[2018-02-17] MEDS: Klonopin 0.5 MG PO SCH ×2 (09:42→21:48)
[2018-02-17] MEDS: ELIQUIS 2.5 MG TABLET PO SCH ×2 (09:42→21:47)
[2018-02-17] MEDS: Apresoline 25 MG TABLET PO SCH ×3 (09:43→21:47)
[2018-02-17] MEDS ORDERED: Lasix 40 MG PO ONE (14:00)
--- NOTE | 2018-02-17 15:51 | PCM.NOTE ---
Date and Time: 02/17/18 1547 Subjective Assessment: felling much better this am improving ambulation but still requiring assistance with adls. she is anxious to get out so she can keep getting better and get home again Objective Exam General Appearance: no apparent distress, alert, obese Neurologic Exam: alert, oriented x 3, cooperative Skin Exam: normal color, warm, dry Eye Exam: PERRL, EOMI, eyes nml inspection Ears, Nose, Throat Exam: normal ENT inspection, pharynx normal, moist mucous membranes Neck Exam: normal inspection, non-tender, supple, full range of motion Respiratory Exam: normal breath sounds, lungs clear, No respiratory distress Cardiovascular Exam: regular rate/rhythm, normal heart sounds Gastrointestinal/Abdomen Exam: soft, No tenderness, No mass Extremity Exam: normal inspection, normal range of motion Back Exam: normal inspection, normal range of motion, No CVA tenderness, No vertebral tenderness Pelvic Exam: deferred Rectal Exam: deferred OBJECTIVE DATA Vital Signs: Vital Signs - 24 hr Temp Pulse Resp BP Pulse Ox 02/17/18 14:00 18 02/17/18 11:22 98.6 F 67 18 136/63 94 L 02/17/18 11:00 67 18 94 L 02/17/18 10:00 18 02/17/18 06:59 98.6 F 65 18 174/77 94 L 02/17/18 06:00 18 02/17/18 04:00 98 F 64 18 190/90 97 02/17/18 02:00 18 02/17/18 00:00 97.5 F 68 22 119/58 91 L 02/16/18 22:00 18 02/16/18 20:00 97.8 F 69 18 179/85 96 02/16/18 19:10 75 18 95 02/16/18 18:00 20 02/16/18 16:00 97.7 F 68 20 166/73 94 L Oxygen-Last 24 hours O2 Percentage 4 Liters = 36% O2 Percentage 4 Liters = 36% O2 Percentage 4 Liters = 36% O2 Percentage 4 Liters = 36% O2 Percentage 4 Liters = 36% O2 Percentage 4 Liters = 36% Pain Assessment - Last Documented Pain Intensity 0 Pain Scale Used 0-10 Pain Scale Intake and Output: Intake & Output 02/15/18 02/16/18 02/17/18 02/18/18 11:59 11:59 11:59 11:59 Intake Total 1800 1540 1200 480 Output Total 4800 2350 4550 0870 Balance -3000 -338 -6452 -9140 Weight 106.5 kg 97.9 kg 105.1 kg Lab Results: Accuchecks Date 02/17/18 Date 02/17/18 Date 02/16/18 Date 02/16/18 Time 11:30 Time 07:30 Time 21:30 Time 16:30 Accucheck Value: 155 Accucheck Value: 125 Accucheck Value: 217 Accucheck Value: 229 Multi-Disciplinary Progress Notes: Multi-Disciplinary Progress Notes 02/17/18 10:37 Physical Therapy Note by Brea Bean PATIENT FUNCTIONAL MOBILITY AND EXERTION TOLERANCE IMPROVING. COGNITIVE STATUS MORE CONSISTENT. STILL BELIEVE A SUPERVISED SETTING IS NEEDED WHERE THERAPY INTERVENTION CAN CONTINUE TO MAXIMIZE POTENTIAL FOR SAFE RETURN HOME. PATIENT STILL NEEDS GUIDANCE IN SELF CARE, AND SAFETY AWARENESS REMAINS A CONCERN. PATIENT REQUIRES SUPPLEMENTAL O2 AT 4L NC AT ALL TIMES TO KEEP O2 SAT ABOVE 92% . INCREASING ACTIVITY TOLERATED. Addendum entered by Brea Bean 02/17/18 13:37: PLOF: INDEPENDENT AT HOME ALONE; HOME O2 BED MOBILITY: INDEPENDENT FUNCTIONAL TRANSFERS: SUPINE TO SIT - MODERATELY INDEPENDENT SIT TO SUPINE - MODERATELY INDEPENDENT SIT TO STAND - MODERATELY INDEPENDENT STAND TO SIT - MODERATELY INDEPENDENT GAIT WITH ROLLER WALKER: 600' WITH ARM HELD ASSIST +1 SELF CARE: EXECUTED WITH ASSIST + 1 DUE TO SAFETY RISKS IN BATHROOM; BEST PERFORMANCE WITH 90% VERBAL CUEING IN BATHING,GROOMING AND DRESSING. CARDIOPULMONARY PHYSIOLOGICAL MONITORS DURING ACTIVITY. Initialized on 02/17/18 10:37 - END OF NOTE 02/17/18 10:00 (created 02/17/18 13:29) Case Management Note by Asia Palma VISITED WITH PT AND REVIEWED DISCHARGE PLAN. PRECERT TO MMM STILL PENDING AT PRESENT TIME. PLANNING FOR REHAB STAY @ [facility] PRIOR TO RETURN HOME, [facility]. CONTINUES TO REQUIRE ASSIST OF 1 WITH ALL ADL'S, (TOILETING, BATHING, AND DRESSING). AMBULATES WITH WALKER AND ASSIST OF 1. GAIT MORE STEADY TODAY. PT HAS ALL NECESSARY DME AT HOME, INCLUDING HOME OXYGEN. PLANNING FOR SHORT TERM REHAB STAY AND TRANSITION TO HOME, SELF CARE, WITH [facility] TO FOLLOW FOR ADD SUPPORT ON DISCHARGE FROM REHAB. AWAIT INSURANCE APPROVAL. WILL FOLLOW FOR ALL DC NEEDS. Initialized on 02/17/18 13:29 - END OF NOTE Assessment/Plan (1) COPD with exacerbation Current Visit: Yes Status: Acute Onset Date: ~02/10/18 Assessment & Plan: continue prednisone decrease to 30 mg daily continue O2 and nebs working to try to repair her home cpap to restart it is here now hypercapnea is improving no further chest pain increase hydralazine today work with PT to improve strength and balance currently not safe ambulating on her own she has severe deconditioning due to prolonged respiratory failure acute on chronic and is very weak and unsteady she lives alone she would greatly benefit from rehab stay with great potential for full recovery still with the uremia but improving and metabolic encephalopathy and periods of confusion are lessening significantly in the last 48 hours and seem to be improving with the medication changes continue to hold the losartan and continue the new hydralazine + imdur echo from 09/2017 reviewed with preserved EF she is improving but still requires assistance with minimal tasks of walking, bathing and clothing herself and would benefit from being in rehab stay for a few weeks to improve her adls and prevent the recurrent admissions she has been having. now and amber is awaiting word from the insurance company on approval before they can take her. Code(s): J44.1 - CHRONIC OBSTRUCTIVE PULMONARY DISEASE W (ACUTE) EXACERBATION (2) Acute on chronic respiratory acidosis Current Visit: Yes Status: Acute Onset Date: ~02/12/18 Code(s): E87.2 - ACIDOSIS (3) Metabolic encephalopathy Current Visit: Yes Status: Resolved Onset Date: ~02/12/18 Code(s): G93.41 - METABOLIC ENCEPHALOPATHY (4) CKD (chronic kidney disease) Current Visit: Yes Status: Acute Onset Date: ~02/12/18 Qualifiers: Chronic kidney disease stage: stage 3 (moderate) Qualified Code(s): N18.3 - Chronic kidney disease, stage 3 (moderate) Code(s): N18.9 - CHRONIC KIDNEY DISEASE, UNSPECIFIED (5) CHF (congestive heart failure) Current Visit: Yes Status: Chronic Qualifiers: Heart failure type: unspecified Heart failure chronicity: chronic Qualified Code(s): I50.9 - Heart failure, unspecified Code(s): I50.9 - HEART FAILURE, UNSPECIFIED (6) Type 2 diabetes mellitus Current Visit: Yes Status: Chronic (7) Coronary artery disease Current Visit: Yes Status: Chronic Code(s): I25.10 - ATHSCL HEART DISEASE OF [place] CORONARY ARTERY W/O ANG PCTRS (8) Thoracic aortic aneurysm without rupture Current Visit: Yes Status: Chronic Code(s): I71.2 - THORACIC AORTIC ANEURYSM , WITHOUT RUPTURE (9) Chronic hypoxemic respiratory failure Current Visit: Yes Status: Chronic (10) Sleep apnea Current Visit: Yes Status: Chronic Code(s): G47.30 - SLEEP APNEA, UNSPECIFIED
[2018-02-17] MEDS: NovoLIN R SQ PRN ×2 (17:07→22:28)
[2018-02-17] MEDS: ZOCOR 20MG PO SCH (21:48)
--- NOTE | 2018-02-18 08:15 | PCM.DCORD ---
- Discharge Discharge Date: 02/18/18 Disposition: Home, Self-Care Condition: Stable Prescriptions: New Prednisone 10 mg [Deltasone 10 mg] 10 mg PO UD #10 tablet Hydralazine HCl 100 mg PO TID #90 tablet Isosorbide Mononitrate 30 mg [Imdur 30 MG] 30 mg PO DAILY #30 tab Continue Furosemide 40 mg [Lasix 40 MG] 40 mg PO BID Pramipexole Di-HCl [Mirapex] 1 mg PO BID Rosuvastatin Calcium [Crestor] 10 mg PO DAILY Pregabalin [Lyrica] 75 mg PO TID #90 capsule clonazePAM [Clonazepam] 0.5 mg PO BID Imipramine HCl 50 mg PO HS Apixaban [Eliquis 5 mg Tablet] 2.5 mg PO BID Sitagliptin Phosphate [Januvia] 100 mg PO DAILY Acetaminophen 500 mg [Tylenol Extra Strength 500 mg] 500 mg PO Q6H PRN PRN PRN Reason: Pain Metoprolol Tartrate 100 mg PO BID #60 tablet Albuterol Sulfate [Albuterol Sulfate Hfa] 2 puff IH Q4H PRN #1 hfa.aer.ad PRN Reason: Shortness Of Breath/Wheezing Aspirin [Aspirin EC] 81 mg PO DAILY Discontinued Losartan Potassium 25 mg PO DAILY Follow up with: IGLESAI DE LEON [Primary Care Provider] - 1 Week
[2018-02-18] MEDS: Klonopin 0.5 MG PO SCH (09:24)
[2018-02-18] MEDS: DELTASONE 20 MG PO SCH (09:24)
[2018-02-18] MEDS: Lopressor 50 MG PO SCH (09:24)
[2018-02-18] MEDS: Mirapex 0.5 MG Tablet PO SCH (09:27)
[2018-02-18] MEDS: ELIQUIS 2.5 MG TABLET PO SCH (09:27)
[2018-02-18] MEDS: Apresoline 25 MG TABLET PO SCH ×2 (09:27→15:28)
[2018-02-18] MEDS: ECOTRIN 81 MG PO SCH (09:28)
[2018-02-18] MEDS: Lasix 40 MG PO SCH (09:29)
[2018-02-18] MEDS: Imdur 30 MG PO SCH (09:29)
[2018-02-18] MEDS: LYRICA 75 MG CAP PO SCH ×2 (09:29→15:28)
[2018-02-18 16:37] VITALS: BP 174/80; PULSE 73; O2SAT 95
--- NOTE | 2018-02-19 12:28 | PCM.DS ---
Discharge Summary Date of Admission: 02/12/18 09:30 Date of Discharge: 02/18/18 Admitting Physician: IGLESIA DE LEON Primary Care Provider: IGLESIA DE LEON Allergies Allergies codeine Allergy (Verified 02/10/18 17:16) Penicillins Allergy (Verified 02/10/18 17:16) Sulfa (Sulfonamide Antibiotics) Allergy (Verified 02/10/18 17:16) hydromorphone [From Dilaudid] Adverse Reaction (Verified 02/10/18 17:16) Hospital Summary - Hospital Course Hospital Course: she presented with weakness falling and shortness of breath. She lives at home and was not able to get herself to her doctor's appointment the previous week and she was getting more confused and unclear if she was eating or taking her medications the further it went until the day of presentation she slid out of her chair and was laying on her back "like a turtle" and unable to move. She eventually was able to call for help and ems brought her in. She was having copd exacerbation with acute on chronic respiratory failure with respiratory acidosis and acute on chronic renal failure with severe uremia and resulting metabolic encephalopathy. She was improving slowly. She also has sleep apnea but had stopped using her cpap at home. She was intermittently confused and in the evenings would often be very confused take her oxygen off and try to get out of bed but then not be able to stand. These were slowly improving and she was working with therapy and showing improvement but was only good for walking about once or twice per day. We felt she would do well with a short rehab stay to continue supervision 24 hour with her confusion spells and her impaired walking as well as to continue her therapy, however after 1 week of waiting for [employer] to give us an approval or denial they finally said it was denied for rehab stay. We discussed the option of appeal with [employer] but she did not want us to do this because she was tired of sitting in the hospital and didn't want to wait any longer. We thus arranged home health for the patient and her daughter will be helping her as well. She had labile hypertension during stay and renal function improved with holding the losartan we added imdur which seemed to help her symptoms as well as hydralazine and will continue to monitor and adjust outpatient. - Vitals & Intake/Output Vital Signs: Vital Signs Temperature 98.1 F 02/18/18 16:00 Pulse Rate 73 02/18/18 16:00 Respiratory Rate 16 02/18/18 16:00 Blood Pressure 174/80 02/18/18 16:00 O2 Sat by Pulse Oximetry 95 02/18/18 16:00 Oxygen-Last Documented O2 Percentage 4 Liters = 36% Intake & Output: Intake & Output 02/17/18 02/18/18 02/19/18 02/20/18 11:59 11:59 11:59 11:59 Intake Total 1200 2040 360 Output Total 4550 5200 Balance -3350 -3160 360 Weight 105.1 kg 103.6 kg - Lab Result Diagrams: 02/16/18 05:00 02/16/18 05:00 Micro Results-Entire Visit: Microbiology 02/10/18 17:28 Blood Culture Gram Stain - Final Blood Not Reportable Blood Culture - Final NO GROWTH 02/10/18 17:20 Blood Culture Gram Stain - Final Blood Not Reportable Blood Culture - Final NO GROWTH 02/10/18 21:30 Urine Culture - Final Clean Catch Midstream NO GROWTH - Procedures and Test Procedures and Tests throughout Hospitalization: Therapy Orders & Screens 02/10/18 17:43 Respiratory Nebulizer STAT Comment: Diagnosis: Shortness of Breath 02/10/18 20:31 Oxygen NASAL CANNULA 4 lpm Comment: Diagnosis: Shortness of Breath Respiratory Therapy Consult ROUTINE Comment: Reason For Exam: Diagnosis: Shortness of Breath 02/10/18 21:16 neb [Respiratory Nebulizer] UD Comment: NEEDED Diagnosis: Shortness of Breath 02/12/18 09:30 PT Eval & Treat (MD Order) ROUTINE Reason for Eval:: Weakness with recurrent falls Diagnosis: Shortness of Breath 02/14/18 22:46 EKG ASORD Comment: Diagnosis: Shortness of Breath, EXAC COPD, PNEUMONIA, FAILED OUTPATIENT 02/18/18 00:39 BiPap/CPAP ROUTINE Comment: Diagnosis: Shortness of Breath, EXAC COPD, PNEUMONIA, FAILED OUTPATIENT Discharge Exam General Appearance: no apparent distress, alert Neurologic Exam: alert, oriented x 3, cooperative, normal mood/affect, nml cerebellar function, sensation nml, No motor deficits Skin Exam: normal color, warm, dry Eye Exam: PERRL, EOMI, eyes nml inspection Ears, Nose, Throat Exam: normal ENT inspection, pharynx normal, moist mucous membranes Neck Exam: normal inspection, non-tender, supple, full range of motion Respiratory Exam: normal breath sounds, lungs clear, No respiratory distress Cardiovascular Exam: regular rate/rhythm, normal heart sounds Gastrointestinal/Abdomen Exam: soft, No tenderness, No mass Extremity Exam: normal inspection, normal range of motion Back Exam: normal inspection, normal range of motion, No CVA tenderness, No vertebral tenderness Pelvic Exam: deferred Rectal Exam: deferred Final Diagnosis/Problem List - Final Discharge Diagnosis/Problem (1) COPD with exacerbation Status: Acute Onset Date: ~02/10/18 (2) Acute on chronic respiratory acidosis Status: Acute Onset Date: ~02/12/18 (3) Metabolic encephalopathy Status: Resolved Onset Date: ~02/12/18 (4) CKD (chronic kidney disease) Status: Acute Onset Date: ~02/12/18 (5) CHF (congestive heart failure) Status: Chronic (6) Type 2 diabetes mellitus Status: Chronic (7) Coronary artery disease Status: Chronic (8) Thoracic aortic aneurysm without rupture Status: Chronic (9) Chronic hypoxemic respiratory failure Status: Chronic (10) Sleep apnea Status: Chronic - Discharge Discharge Date: 02/18/18 Disposition: HOME HEALTH SERVICE Condition: Stable Prescriptions: New Prednisone 10 mg [Deltasone 10 mg] 10 mg PO UD #10 tablet Hydralazine HCl 100 mg PO TID #90 tablet Isosorbide Mononitrate 30 mg [Imdur 30 MG] 30 mg PO DAILY #30 tab Continue Furosemide 40 mg [Lasix 40 MG] 40 mg PO BID Pramipexole Di-HCl [Mirapex] 1 mg PO BID Rosuvastatin Calcium [Crestor] 10 mg PO DAILY Pregabalin [Lyrica] 75 mg PO TID #90 capsule clonazePAM [Clonazepam] 0.5 mg PO BID Imipramine HCl 50 mg PO HS Apixaban [Eliquis 5 mg Tablet] 2.5 mg PO BID Sitagliptin Phosphate [Januvia] 100 mg PO DAILY Acetaminophen 500 mg [Tylenol Extra Strength 500 mg] 500 mg PO Q6H PRN PRN PRN Reason: Pain Metoprolol Tartrate 100 mg PO BID #60 tablet Albuterol Sulfate [Albuterol Sulfate Hfa] 2 puff IH Q4H PRN #1 hfa.aer.ad PRN Reason: Shortness Of Breath/Wheezing Aspirin [Aspirin EC] 81 mg PO DAILY Discontinued Losartan Potassium 25 mg PO DAILY Instructions: Pneumonia, Adult (DC), Exacerbation of COPD (DC) Additional Instructions: [facility] WILL CALL YOU TO ARRANGE YOUR FIRST VISIT. YOU MAY REACH THEM AT [phone]. Follow up with: IGLESIA DE LEON [Primary Care Provider] - 02/24/18 11:15 am Forms: Discharge Instructions
== END 2018-02-18 16:30 | disposition home health service (06) | DRG 190 ==
LOC: ED 16:24 → MED SURG 20:26 → OBSVTOIN 02-12 09:30
PROVIDERS: ADMIT Family Medicine; ATTEND Family Medicine
DX: J44.1 Chronic obstructive pulmonary disease with (acute) exacerbation (principal); G93.41 Metabolic encephalopathy; E87.2 Acidosis; J96.11 Chronic respiratory failure with hypoxia; J18.1 Lobar pneumonia, unspecified organism; R41.82 Altered mental status, unspecified; I25.10 Atherosclerotic heart disease of native coronary artery without angina pectoris; I12.9 Hypertensive chronic kidney disease with stage 1 through stage 4 chronic kidney disease, or unspecified chronic kidney disease; N18.3 Chronic kidney disease, stage 3 (moderate); I71.2 Thoracic aortic aneurysm, without rupture; G47.30 Sleep apnea, unspecified; E78.00 Pure hypercholesterolemia, unspecified; I10 Essential (primary) hypertension; I50.9 Heart failure, unspecified; E11.9 Type 2 diabetes mellitus without complications; M19.90 Unspecified osteoarthritis, unspecified site; Z99.81 Dependence on supplemental oxygen; K21.9 Gastro-esophageal reflux disease without esophagitis; F32.9 Major depressive disorder, single episode, unspecified; Z87.891 Personal history of nicotine dependence; Z79.01 Long term (current) use of anticoagulants; Z79.899 Other long term (current) drug therapy
CPT/HCPCS: 36000; 36415; 36600; 70450; 71045; 80048; 80053; 80307; 81000; 82150; 82375; 82803; 82805; 82962; 83036; 83605; 83690; 84484; 85025; 85027; 87040; 87086; 93005; 93268; 94640; 94660; 94760; 94762; 96360; 99285; J0456; J0696; J1940; J2405; J2920; J2930; 97110-GP; A9270-GY; G0378; G0480

== ENCOUNTER 2018-03-08 03:10 | Emergency (ER) | payer MEDICARE ==
[2018-03-08] MEDS ORDERED: DUONEB 0.5-3 MG/3 ml Neb IH ONE (03:14)
[2018-03-08] MEDS: DUONEB 0.5-3 MG/3 ml Neb IH ONE (03:18)
[2018-03-08 03:55] LABS: A-aADO2 129; ABG POTASSIUM 5.8 (3.5-5.1); ARTERIAL BLD GAS O2 SATURATION 98.4 % (95-100); ARTERIAL BLOOD GAS BASE EXCESS -1.4 (-2.0-2.0); ARTERIAL BLOOD GAS FIO2 40 %; ARTERIAL BLOOD GAS PCO2 41 mmHg (35-45); ARTERIAL BLOOD GAS PO2 105 mmHg (75-100); ARTERIAL BLOOD GAS pH 7.37 (7.35-7.45); CARBOXYHEMOGLOBIN 3.4 % THgb (0.0-6.9); HCO3- 23.7 (22-28); HGB O2 SAT 93.7 g/dF (94-100); Methhemoglobin 1.4 % (1.4-1.5); paO2 pAO1 0.45
[2018-03-08 03:56] LABS: ABG HEMOGLOBIN 5.2
[2018-03-08 03:59] LABS: ABG SITE LEFT RADIAL; ALLEN TEST OK? YES
[2018-03-08 04:01] LABS: Granulocyte Absolute (ANC) 4.91 (1.4-6.9); Hematocrit 17.4 % (35-47); Mean Cell Volume 108.1 fl (78-100); Mean Corpuscular Hemoglobin 30.4 pg (26-32); Mean Corpuscular Hgb Concent. 28.2 g/dl (32-36); Mean Platelet Volume 11.5 fl (6-9.5); Platelet Count 136 K/mm3 (150-450); Red Cell Distribution Width 18.5 % (11.5-14.0); White Blood Count 6.9 K/mm3 (4.0-10.5)
[2018-03-08 04:03] LABS: Lactic Acid 7.5 (0.4-2.0)
[2018-03-08] MEDS: Sodium Chloride 0.9% 1000 ML 1,000 ML IV STA (04:10)
--- NOTE | 2018-03-08 04:13 | ERPHSYRPT ---
- History of Present Illness Time Seen by Provider: 03/08/18 04:09 Source: patient Exam Limitations: no limitations Physician History: patient with history of COPD, CHF, diabetes, coronary art, thoracic aortic aneurysm and sleep apnea on Eliquis/ASA, who presents with shortness of breath for past 1-2 days. Patient states she has had a dry cough, decreased energy and dyspnea with any activity. Patient does have sleep apnea and is supposed to use a CPAP machine, but states have not been using it. Patient did call EMS AND NOTED HER O2 sats to be in 80s. Patient was given dual nebs and oxygen which did improve her symptoms. Patient admits to having dark stools for past few weeks, but denies any chest pain, fever, chills, diaphoresis, vomiting, palpitation, abdominal/back pain or urinary symptoms. Patient also states that she has an thoracic aneurysm that measures 5.2 cm. Patient sees a cardiovascular surgeon at [facility] and have been preparing for possible upcoming thoracic aneurysm repair Timing/Duration: today Activities at Onset: rest Severity of Dyspnea-Max: severe Severity of Dyspnea-Current: moderate Possible Cause: frequent episodes Modifying Factors: Improves With: albuterol nebulizer (improves), exertion ( worsens), oxygen (improves) Associated Symptoms: intermittent, cough (dry), weakness, dizziness, lightheadedness, No chest pain/discomfort, No edema, No fever, No ankle swelling , No heart racing, No leg swelling, No muscle spasms feet, No painful breathing , No productive cough, No sweating, No tightness Allergies/Adverse Reactions: codeine Allergy (Verified 03/08/18 04:44) Penicillins Allergy (Verified 03/08/18 04:44) Sulfa (Sulfonamide Antibiotics) Allergy (Verified 03/08/18 04:44) hydromorphone [From Dilaudid] Adverse Reaction (Verified 03/08/18 04:44) Home Medications: Furosemide 40 mg [Lasix 40 MG] 40 mg PO BID 12/24/16 [History] Pramipexole Di-HCl [Mirapex] 1 mg PO BID 12/24/16 [History] Rosuvastatin Calcium [Crestor] 10 mg PO DAILY 12/25/16 [History] Acetaminophen 500 mg [Tylenol Extra Strength 500 mg] 500 mg PO Q6H PRN PRN 09/07/17 [History] Apixaban [Eliquis 5 mg Tablet] 2.5 mg PO BID 09/07/17 [History] Imipramine HCl 50 mg PO HS 09/07/17 [History] Sitagliptin Phosphate [Januvia] 100 mg PO DAILY 09/07/17 [History] clonazePAM [Clonazepam] 0.5 mg PO BID 09/07/17 [History] Aspirin [Aspirin EC] 81 mg PO DAILY 02/11/18 [History] Hx Tetanus, Diphtheria Vaccination/Date Given: Yes Hx Influenza Vaccination/Date Given: Yes Hx Pneumococcal Vaccination/Date Given: Yes - Review of Systems Constitutional: Weakness, No Fever, No Chills Eyes: No Symptoms Ears, Nose, & Throat: No Symptoms Respiratory: Cough, Dyspnea, Dyspnea on Exertion (BHATIA), Wheezing Cardiac: No Symptoms, No Chest Pain, No Edema, No Syncope Abdominal/Gastrointestinal: No Symptoms, No Abdominal Pain, No Nausea, No Vomiting, No Diarrhea Genitourinary Symptoms: No Symptoms, No Dysuria Musculoskeletal: No Symptoms, No Back Pain, No Neck Pain Skin: No Symptoms, No Rash Neurological: Lethargy, No Dizziness, No Focal Weakness, No Sensory Changes Psychological: No Symptoms Endocrine: No Symptoms Hematologic/Lymphatic: No Symptoms Immunological/Allergic: No Symptoms All Other Systems: Reviewed and Negative - Past Medical History Pertinent Past Medical History: Yes Neurological History: No Pertinent History ENT History: Cataracts Cardiac History: Aneurysm, High Cholesterol, Hypertension Respiratory History: CHF, COPD, Pneumonia Endocrine Medical History: No Pertinent History, Diabetes Type II Musculoskeletal History: Arthritis GI Medical History: GERD, Hernia History: Other Psycho-Social History: Depression Female Reproductive Disorders: No Pertinent History - Past Surgical History Past Surgical History: Yes Neuro Surgical History: No Pertinent History Cardiac: Vascular Surgery Respiratory: No Pertinent History Gastrointestinal: Appendectomy Genitourinary: No Pertinent History Musculoskeletal: No Pertinent History Female Surgical History: Hysterectomy Other Surgical History: cystocele. rectocele. carotidendarectomy. cataract surgery scheduled for 01/01 - Social History Smoking Status: Former smoker How long have you smoked: 50 Years Exposure to second hand smoke: No Drug Use: none Patient Lives Alone: Yes - Nursing Vital Signs Nursing Vital Signs: Initial Vital Signs Pulse Rate 76 03/08/18 03:18 Respiratory Rate 24 03/08/18 03:18 O2 Sat by Pulse Oximetry 97 03/08/18 03:18 - Physical Exam General Appearance: no apparent distress, alert, other (sleepy but arousable) Eye Exam: PERRL/EOMI Ears, Nose, Throat Exam: hearing grossly normal Neck Exam: normal inspection, supple Respiratory Exam: diminished breath sounds, crackles/rales Cardiovascular/Chest Exam: normal heart sounds, regular rate/rhythm Abdominal/Gastrointestinal Exam: soft, No tenderness, No distention, No mass Rectal Exam: normal rectal tone, black stool Extremity Exam: non-tender, normal range of motion, normal inspection, no calf tenderness, no pedal edema Peripheral Pulses Exam: femoral (R): 2+, femoral (L): 2+, dorsalis-pedis (R): 2+ , dorsalis-pedis (L): 2+ Neurologic Exam: alert, oriented x 3, cooperative, timber spotter II-XII nml as tested, sensation nml, No motor deficits Skin Exam: normal color, warm, No dry SpO2 Interpretation: normal SpO2: 97 Oxygen Delivery: Nasal Cannula - Course Nursing assessment & vital signs reviewed: Yes EKG Interpreted by Me: RATE (61 paced rhythm), NORMAL AXIS, Non-specific ST Changes - CT Exams Chest CT Interpretation: Tele-radiologist Report, Other (aortic arch aneurysm with posterior arch measuring 6 cm in diameter, trace pleural fluid otherwise no other pathology noted) Ordered Tests: Active Orders 24 hr Category Date Time Status Cook Helper STAT Care 03/08/18 03:29 Active EKG-ER Only STAT Care 03/08/18 03:27 Active IV Insertion STAT Care 03/08/18 03:27 Active Oxygen-ED Only NASAL CANNULA 2 lpm Care 03/08/18 03:27 Active Pulse Oximetry (ED) STAT Care 03/08/18 03:27 Active CHEST 1 VIEW (PORTABLE) Stat Exams 03/08/18 03:28 Taken CHEST WITHOUT CONTRAST [CT] Stat Exams 03/08/18 04:07 Taken ABG [ARTERIAL BLOOD GASES] Stat Lab 03/08/18 03:47 Completed CBC W DIFF Stat Lab 03/08/18 03:50 Completed CMP Stat Lab 03/08/18 03:50 Completed D-DIMER QUANTITATION Stat Lab 03/08/18 03:50 Completed Lactic Acid Stat Lab 03/08/18 03:47 Completed Lactic Acid Stat Lab 03/08/18 05:52 Ordered Manual Differential NC Stat Lab 03/08/18 03:50 Completed NT PRO BNP Stat Lab 03/08/18 03:50 Completed Occult Blood,Stool Other Stat Lab 03/08/18 05:30 Completed TROPONIN Q3H Lab 03/08/18 03:50 Completed Respiratory Nebulizer STAT RT 03/08/18 03:31 Completed Respiratory Therapy Assessment DAILY RT 03/08/18 04:04 Active Medication Summary Discontinued Medications Generic Name Dose Route Start Last Admin Trade Name Freq PRN Reason Stop Dose Admin Albuterol/Ipratropium 3 ml 03/08/18 03:27 03/08/18 03:18 Duoneb 0.5-3 Mg/3 Ml Neb IH 03/08/18 03:28 3 ml STAT ONE Administration Sodium Chloride 1,000 mls @ 999 mls/hr 03/08/18 04:06 03/08/18 04:10 Sodium Chloride 0.9% 1000 Ml IV 03/08/18 05:06 999 mls/hr .Q1H1M STA Administration Sodium Chloride Confirm 03/08/18 04:19 Sodium Chloride 0.9% 1000 Ml Administered 03/08/18 04:20 Dose 1,000 mls @ ud .ROUTE .STK-MED ONE Sodium Chloride Confirm 03/08/18 06:02 Sodium Chloride 0.9% 1000 Ml Administered 03/08/18 06:03 Dose 1,000 mls @ ud .ROUTE .STK-MED ONE Methylprednisolone Sodium Succinate 125 mg 03/08/18 03:27 03/08/18 04:57 Solu-Medrol 125 Mg IV 03/08/18 03:28 Not Given STAT ONE Lab/Rad Data: Laboratory Result Diagrams 03/08/18 03:50 03/08/18 03:50 Laboratory Results 03/08/18 03/08/18 03/08/18 Range/Units 05:30 04:42 04:06 WBC (4.0-10.5) K/mm3 RBC (4.1-5.4) M/mm3 Hgb (12.0-16.0) gm/dl Hct (35-47) % MCV (78-100) fl MCH (26-32) pg MCHC (32-36) g/dl RDW (11.5-14.0) % Plt Count (150-450) K/mm3 MPV (6-9.5) fl Absolute Granulocytes (1.4-6.9) D-Dimer (215-500) ng/mL Puncture Site pCO2 (35-45) mmHg pO2 (75-100) mmHg Base Excess (-2.0-2.0) O2 Saturation (94-100) g/dF ABG pH (7.35-7.45) ABG HCO3 (22-28) ABG O2 Sat (Measured) (95-100) % Nito Test A-a Gradient a/A Ratio Hemoglobin Carboxyhemoglobin (0.0-6.9) % THgb Methemoglobin (1.4-1.5) % Potassium (3.5-5.1) Temperature C POC O2 Flow Rate % Sodium (137-145) mmol/L Chloride (98-107) mmol/L Carbon Dioxide (22-30) mmol/L Anion Gap (5-15) MEQ/L BUN (7-17) mg/dL Creatinine (0.52-1.04) mg/dL Estimated GFR ML/MIN Glucose (74-106) mg/dL Lactic Acid (0.4-2.0) Calcium (8.4-10.2) mg/dL Total Bilirubin (0.2-1.3) mg/dL AST (14-36) U/L ALT (0-35) U/L Alkaline Phosphatase (38-126) U/L Troponin I (0.000-0.034) ng/mL NT-Pro-B Natriuret Pep (0-900) pg/mL Serum Total Protein (6.3-8.2) g/dL Albumin (3.5-5.0) g/dL Stool Occult Blood POSITIVE (Negative) ABO Group A Rh Factor POSITIVE Antibody Screen NEGATIVE (NEGATIVE) Crossmatch COMPATIBLE (COMPATIBLE) 03/08/18 03/08/18 03/08/18 Range/Units 04:06 03:50 03:50 WBC (4.0-10.5) K/mm3 RBC (4.1-5.4) M/mm3 Hgb (12.0-16.0) gm/dl Hct (35-47) % MCV (78-100) fl MCH (26-32) pg MCHC (32-36) g/dl RDW (11.5-14.0) % Plt Count (150-450) K/mm3 MPV (6-9.5) fl Absolute Granulocytes (1.4-6.9) D-Dimer 1638 H* (215-500) ng/mL Puncture Site pCO2 (35-45) mmHg pO2 (75-100) mmHg Base Excess (-2.0-2.0) O2 Saturation (94-100) g/dF ABG pH (7.35-7.45) ABG HCO3 (22-28) ABG O2 Sat (Measured) (95-100) % Nito Test A-a Gradient a/A Ratio Hemoglobin Carboxyhemoglobin (0.0-6.9) % THgb Methemoglobin (1.4-1.5) % Potassium (3.5-5.1) Temperature C POC O2 Flow Rate % Sodium (137-145) mmol/L Chloride (98-107) mmol/L Carbon Dioxide (22-30) mmol/L Anion Gap (5-15) MEQ/L BUN (7-17) mg/dL Creatinine (0.52-1.04) mg/dL Estimated GFR ML/MIN Glucose (74-106) mg/dL Lactic Acid (0.4-2.0) Calcium (8.4-10.2) mg/dL Total Bilirubin (0.2-1.3) mg/dL AST (14-36) U/L ALT (0-35) U/L Alkaline Phosphatase (38-126) U/L Troponin I 0.013 (0.000-0.034) ng/mL NT-Pro-B Natriuret Pep (0-900) pg/mL Serum Total Protein (6.3-8.2) g/dL Albumin (3.5-5.0) g/dL Stool Occult Blood (Negative) ABO Group Rh Factor Antibody Screen (NEGATIVE) Crossmatch COMPATIBLE (COMPATIBLE) 03/08/18 03/08/18 03/08/18 Range/Units 03:50 03:50 03:47 WBC 6.9 (4.0-10.5) K/mm3 RBC 1.61 L* (4.1-5.4) M/mm3 Hgb 4.9 L* (12.0-16.0) gm/dl Hct 17.4 L (35-47) % MCV 108.1 H (78-100) fl MCH 30.4 (26-32) pg MCHC 28.2 L (32-36) g/dl RDW 18.5 H (11.5-14.0) % Plt Count 136 L (150-450) K/mm3 MPV 11.5 H (6-9.5) fl Absolute Granulocytes 4.91 (1.4-6.9) D-Dimer (215-500) ng/mL Puncture Site pCO2 (35-45) mmHg pO2 (75-100) mmHg Base Excess (-2.0-2.0) O2 Saturation (94-100) g/dF ABG pH (7.35-7.45) ABG HCO3 (22-28) ABG O2 Sat (Measured) (95-100) % Nito Test A-a Gradient a/A Ratio Hemoglobin Carboxyhemoglobin (0.0-6.9) % THgb Methemoglobin (1.4-1.5) % Potassium 5.7 H (3.5-5.1) Temperature C POC O2 Flow Rate % Sodium 135 L (137-145) mmol/L Chloride 95 L (98-107) mmol/L Carbon Dioxide 24 (22-30) mmol/L Anion Gap 22.2 H (5-15) MEQ/L BUN 87 H (7-17) mg/dL Creatinine 2.06 H (0.52-1.04) mg/dL Estimated GFR 25.2 ML/MIN Glucose 104 (74-106) mg/dL Lactic Acid 7.5 H (0.4-2.0) Calcium 7.7 L (8.4-10.2) mg/dL Total Bilirubin 1.00 (0.2-1.3) mg/dL AST 337 H (14-36) U/L ALT 193 H (0-35) U/L Alkaline Phosphatase 124 (38-126) U/L Troponin I (0.000-0.034) ng/mL NT-Pro-B Natriuret Pep 2210 H (0-900) pg/mL Serum Total Protein 5.7 L (6.3-8.2) g/dL Albumin 3.4 L (3.5-5.0) g/dL Stool Occult Blood (Negative) ABO Group Rh Factor Antibody Screen (NEGATIVE) Crossmatch (COMPATIBLE) 08/05/18 Range/Units 03:47 WBC (4.0-10.5) K/mm3 RBC (4.1-5.4) M/mm3 Hgb (12.0-16.0) gm/dl Hct (35-47) % MCV (78-100) fl MCH (26-32) pg MCHC (32-36) g/dl RDW (11.5-14.0) % Plt Count (150-450) K/mm3 MPV (6-9.5) fl Absolute Granulocytes (1.4-6.9) D-Dimer (215-500) ng/mL Puncture Site LEFT RADIAL pCO2 41 (35-45) mmHg pO2 105 H (75-100) mmHg Base Excess -1.4 (-2.0-2.0) O2 Saturation 93.7 L (94-100) g/dF ABG pH 7.37 (7.35-7.45) ABG HCO3 23.7 (22-28) ABG O2 Sat (Measured) 98.4 (95-100) % Nito Test YES A-a Gradient 129 a/A Ratio 0.45 Hemoglobin 5.2 L* Carboxyhemoglobin 3.4 (0.0-6.9) % THgb Methemoglobin 1.4 (1.4-1.5) % Potassium 5.8 H (3.5-5.1) Temperature 37.0 C POC O2 Flow Rate 40 % Sodium (137-145) mmol/L Chloride (98-107) mmol/L Carbon Dioxide (22-30) mmol/L Anion Gap (5-15) MEQ/L BUN (7-17) mg/dL Creatinine (0.52-1.04) mg/dL Estimated GFR ML/MIN Glucose (74-106) mg/dL Lactic Acid (0.4-2.0) Calcium (8.4-10.2) mg/dL Total Bilirubin (0.2-1.3) mg/dL AST (14-36) U/L ALT (0-35) U/L Alkaline Phosphatase (38-126) U/L Troponin I (0.000-0.034) ng/mL NT-Pro-B Natriuret Pep (0-900) pg/mL Serum Total Protein (6.3-8.2) g/dL Albumin (3.5-5.0) g/dL Stool Occult Blood (Negative) ABO Group Rh Factor Antibody Screen (NEGATIVE) Crossmatch (COMPATIBLE) - Progress Progress: improved Air Movement: good Progress Note: 03/08/18 04:55 patient was given duonebs and IV fluids. H&H was 4.9 and 17.4, platelets 1:30 6K, electrolytes with sodium 135, potassium 5.7, chloride 95, BNP 2210, initial latic acid was 7. 5 repeat lactic acidosis 5.1, ABG with pH of 7.37, PCO2 41, PO2 105, bicarbonate 23.7, positive hemacult 03/08/18 06:22 03/08/18 06:31 patient was typed and crossed for 2 units and was given 1 unit of pRBC when it was available. Patient's systolic blood pressure remained greater than 100. Due to patient's low hemoglobin and GI bleed, it was determined patient needed to go to a higher level of care hospital 03/08/18 06:37 Blood Culture(s) Obtained: No Antibiotics given: No Discussed with DrCira: Other (Dr. Keenan agreed to accept pt. for further care) Counseled pt/family regarding: lab results, diagnosis, rad results - Departure Time of Disposition: 06:53 Departure Disposition: Transfer Clinical Impression: Anemia, GI bleed Condition: Stable Critical Care Time: No Referrals: IGLESIA DE LEON [Primary Care Provider] -
[2018-03-08] MEDS ORDERED: Sodium Chloride 0.9% 1000 ML 1,000 ML ONE ×2 (04:19→06:02)
[2018-03-08 04:24] LABS: ALBUMIN 3.4 g/dL (3.5-5.0); ANION GAP 22.2 MEQ/L (5-15); Calcium 7.7 mg/dL (8.4-10.2); Creatinine 1 2.06 mg/dL (0.52-1.04); Potassium 5.7 mmol/L (3.5-5.1); Total Protein 5.7 g/dL (6.3-8.2)
[2018-03-08 04:43] LABS: Red Blood Count 1.61 M/mm3 (4.1-5.4)
[2018-03-08 04:44] LABS: Hemoglobin 4.9 gm/dl (12.0-16.0)
[2018-03-08] MEDS: solu-MEDROL 125 MG IV ONE (04:57)
[2018-03-08 05:47] LABS: ABO TYPING A; Antibody Screen NEGATIVE (NEGATIVE); RH TYPING POSITIVE
[2018-03-08 06:13] LABS: Lactic Acid 5.1 (0.4-2.0)
[2018-03-08 06:16] VITALS: O2SAT 97
[2018-03-08 06:24] VITALS: BP 100/69; PULSE 60
[2018-03-08 07:44] LABS: Basophil 1 % (0.0-1.0); Hypochromia 3+; Lymphocytes 15 % (24-44); Macrocytosis 2+; Monocyte 2 % (0.0-12.0); Neutrophils 82 % (36.0-66.0); Platelet Estimate DECREASED (NORMAL); Total Cells Counted 100
[2018-03-08 07:45] LABS: Basophilic Stippling 1+; Polychromasia 3+
--- NOTE | 2018-03-08 10:22 | XRAY ---
Indication: Short of breath. Hypotension. Low hemoglobin. Thoracic aneurysm. Multiple contiguous axial images obtained through the chest without contrast as ordered. Comparison: None. Heart is enlarged with left-sided dual-lead pacemaker. No pericardial effusion. Aorta is moderately arteriosclerotic. Distal aortic arch demonstrates 6 cm aneurysmal dilatation. Lack of IV contrast precludes further characterization. No pathologic mediastinal lymphadenopathy. Small hiatal hernia. Examination of the lung parenchyma demonstrates moderate bilateral dependent atelectasis, bibasilar subsegmental atelectasis/scarring, and bibasilar calcified granulomas. No infiltrate or effusion. Bony thorax intact with moderate degenerative changes throughout the spine. Limited upper abdomen demonstrates fatty liver. Impression: 1. Arteriosclerotic aorta with aortic arch aneurysm. 2. Cardiomegaly without tanika CHF. 3. Small hiatal hernia, fatty liver, and evidence for old granulomatous disease. Comment: Preliminary interpretation was made by C. No critical discrepancy. CTDI 17.76
--- NOTE | 2018-03-08 10:22 | XRAY ---
Indication: Short of breath. Comparison: February 10, 2018. Portable apical lordotic chest again demonstrates bibasilar atelectasis/scarring, cardiomegaly, left-sided dual-lead pacemaker, and CT proven aortic arch aneurysm. No new/acute cardiopulmonary findings.
== END 2018-03-08 07:20 | disposition short-term general hospital (02) ==
LOC: ED 03:10
DX: D64.9 Anemia, unspecified (principal); K92.2 Gastrointestinal hemorrhage, unspecified; E78.00 Pure hypercholesterolemia, unspecified; I10 Essential (primary) hypertension; I50.9 Heart failure, unspecified; J44.9 Chronic obstructive pulmonary disease, unspecified; E11.9 Type 2 diabetes mellitus without complications; M19.90 Unspecified osteoarthritis, unspecified site; K21.9 Gastro-esophageal reflux disease without esophagitis; Z79.01 Long term (current) use of anticoagulants; Z79.899 Other long term (current) drug therapy; G47.30 Sleep apnea, unspecified
CPT/HCPCS: 36415; 71250; 80053; 82272; 82375; 82803; 83605; 83880; 84484; 85025; 85379; 86850; 86900; 86901; 86922; 93005; 93041; 94640; 96360; 96361; 99291; P9016; 36000; 36430; 36600; 71045; 99285; A9270-GY

== ENCOUNTER 2018-03-26 20:39 | Emergency (ER) | payer MEDICARE ==
[2018-03-26] MEDS ORDERED: PROTONIX 40 MG IV IV ONE ×2 (20:51→21:18)
[2018-03-26] MEDS ORDERED: Sodium Chloride 0.9% 1000 ML 1,000 ML IV SCH (21:00)
--- NOTE | 2018-03-26 21:03 | ERPHSYRPT ---
- History of Present Illness Time Seen by Provider: 03/26/18 20:45 Historian: patient Exam Limitations: no limitations Physician History: 73 y/o female with history of bleeding ulcer who was last seen 2 weeks ago for a Hgb of 4 and was sent to [facility] for EGD. For the last few days, patient has been having weakness. Pt also admits to still having black stools. Pt is on a PPI and has been taking eliquis. Pt denies any shortness of breath, chest pain, abdominal pain, nausea, vomiting or diarrhea. Timing/Duration: day(s) Activities at Onset: none Pain Radiation: no radiation Severity of Pain-Max: none Severity of Pain-Current: none Modifying Factors: Improves With: nothing Associated Symptoms: denies symptoms Previous symptoms: same symptoms as today Allergies/Adverse Reactions: codeine Allergy (Verified 03/08/18 04:44) Penicillins Allergy (Verified 03/08/18 04:44) Sulfa (Sulfonamide Antibiotics) Allergy (Verified 03/08/18 04:44) hydromorphone [From Dilaudid] Adverse Reaction (Verified 03/08/18 04:44) Home Medications: Furosemide 40 mg [Lasix 40 MG] 40 mg PO BID 12/24/16 [History] Pramipexole Di-HCl [Mirapex] 1 mg PO BID 12/24/16 [History] Rosuvastatin Calcium [Crestor] 10 mg PO DAILY 12/25/16 [History] Acetaminophen 500 mg [Tylenol Extra Strength 500 mg] 500 mg PO Q6H PRN PRN 09/07/17 [History] Apixaban [Eliquis 5 mg Tablet] 2.5 mg PO BID 09/07/17 [History] Imipramine HCl 50 mg PO HS 09/07/17 [History] Sitagliptin Phosphate [Januvia] 100 mg PO DAILY 09/07/17 [History] clonazePAM [Clonazepam] 0.5 mg PO BID 09/07/17 [History] Aspirin [Aspirin EC] 81 mg PO DAILY 02/11/18 [History] Hx Tetanus, Diphtheria Vaccination/Date Given: Yes Hx Influenza Vaccination/Date Given: Yes Hx Pneumococcal Vaccination/Date Given: Yes - Review of Systems Constitutional: Weakness, No Fever, No Chills Eyes: No Symptoms Ears, Nose, & Throat: No Symptoms Respiratory: No Cough, No Dyspnea Cardiac: No Chest Pain, No Edema, No Syncope Abdominal/Gastrointestinal: Melena, No Abdominal Pain, No Nausea, No Vomiting, No Diarrhea Genitourinary Symptoms: No Dysuria Musculoskeletal: No Back Pain, No Neck Pain Skin: No Rash Neurological: No Dizziness, No Focal Weakness, No Sensory Changes Psychological: No Symptoms Endocrine: No Symptoms All Other Systems: Reviewed and Negative - Past Medical History Pertinent Past Medical History: Yes Neurological History: No Pertinent History ENT History: Cataracts Cardiac History: Aneurysm, High Cholesterol, Hypertension Respiratory History: CHF, COPD, Pneumonia Endocrine Medical History: No Pertinent History, Diabetes Type II Musculoskeletal History: Arthritis GI Medical History: GERD, Hernia History: Other Psycho-Social History: Depression Female Reproductive Disorders: No Pertinent History - Past Surgical History Past Surgical History: Yes Neuro Surgical History: No Pertinent History Cardiac: Vascular Surgery Respiratory: No Pertinent History Gastrointestinal: Appendectomy Genitourinary: No Pertinent History Musculoskeletal: No Pertinent History Female Surgical History: Hysterectomy Other Surgical History: cystocele. rectocele. carotidendarectomy. cataract surgery scheduled for 01/01 - Social History Smoking Status: Former smoker How long have you smoked: 50 Years Exposure to second hand smoke: No Drug Use: none Patient Lives Alone: Yes - Nursing Vital Signs Nursing Vital Signs: Initial Vital Signs Temperature 97.6 F 03/26/18 20:40 Pulse Rate 73 03/26/18 20:40 Respiratory Rate 20 03/26/18 20:40 Blood Pressure 134/76 03/26/18 20:40 O2 Sat by Pulse Oximetry 91 L 03/26/18 20:40 Pain Scale Pain Intensity 0 - Physical Exam General Appearance: no apparent distress, alert Eye Exam: PERRL/EOMI, pale conjunctivae Ears, Nose, Throat Exam: normal ENT inspection, pharynx normal, moist mucous membranes Neck Exam: normal inspection, non-tender, supple, full range of motion Respiratory Exam: normal breath sounds, lungs clear, No respiratory distress Cardiovascular Exam: regular rate/rhythm, normal heart sounds Gastrointestinal/Abdomen Exam: soft, No tenderness, No mass Back Exam: normal inspection, normal range of motion, No CVA tenderness, No vertebral tenderness Extremity Exam: normal inspection, normal range of motion, pelvis stable Neurologic Exam: alert, oriented x 3, cooperative, normal mood/affect, nml cerebellar function, sensation nml, No motor deficits Skin Exam: normal color, warm, dry - Course Nursing assessment & vital signs reviewed: Yes EKG Interpreted by Me: NORMAL AXIS, NORMAL INTERVALS, Non-specific ST Changes Ordered Tests: Active Orders 24 hr Category Date Time Status Public Works Technician STAT Care 03/26/18 20:50 Active EKG-ER Only STAT Care 03/26/18 20:49 Active IV Insertion STAT Care 03/26/18 20:49 Active NPO (ED) STAT Care 03/26/18 20:51 Active CHEST 1 VIEW (PORTABLE) Stat Exams 03/26/18 21:07 Taken CBC W DIFF Stat Lab 03/26/18 20:49 Completed CMP Stat Lab 03/26/18 20:49 Completed Occult Blood,Stool Other Stat Lab 03/26/18 21:07 Completed PROTIME WITH INR Stat Lab 03/26/18 20:49 Completed PTT Stat Lab 03/26/18 20:49 Completed TROPONIN Q3H Lab 03/26/18 21:00 Completed TROPONIN Q3H Lab 03/27/18 00:00 Ordered TROPONIN Q3H Lab 03/27/18 03:00 Ordered TROPONIN Q3H Lab 03/27/18 06:00 Ordered TROPONIN Q3H Lab 03/27/18 09:00 Ordered Medication Summary Generic Name Dose Route Start Last Admin Trade Name Freq PRN Reason Stop Dose Admin Sodium Chloride 1,000 mls @ 200 mls/hr 03/26/18 21:00 03/26/18 21:21 Sodium Chloride 0.9% 1000 Ml IV 04/25/18 20:59 200 mls/hr .Q5H NORRIS Administration Discontinued Medications Generic Name Dose Route Start Last Admin Trade Name Freq PRN Reason Stop Dose Admin Pantoprazole Sodium 40 mg 03/26/18 20:51 03/26/18 21:21 Protonix 40 Mg Iv IV 03/26/18 20:52 40 mg STAT ONE Administration Pantoprazole Sodium Confirm 03/26/18 21:18 Protonix 40 Mg Iv Administered 03/26/18 21:19 Dose 40 mg IV .STK-MED ONE Lab/Rad Data: Laboratory Result Diagrams 03/26/18 20:49 03/26/18 20:49 Laboratory Results 03/26/18 03/26/18 03/26/18 Range/Units 21:07 21:00 20:49 WBC (4.0-10.5) K/mm3 RBC (4.1-5.4) M/mm3 Hgb (12.0-16.0) gm/dl Hct (35-47) % MCV (78-100) fl MCH (26-32) pg MCHC (32-36) g/dl RDW (11.5-14.0) % Plt Count (150-450) K/mm3 MPV (6-9.5) fl Gran % (36.0-66.0) % Eos # (Auto) (0-0.5) Absolute Lymphs (auto) (1.0-4.6) Absolute Monos (auto) (0.0-1.3) Lymphocytes % (24.0-44.0) % Monocytes % (0.0-12.0) % Eosinophils % (0.00-5.0) % Basophils % (0.0-0.4) % Absolute Granulocytes (1.4-6.9) Basophils # (0-0.4) PT 12.2 (9.95-12.35) SECONDS INR 1.05 (0.8-3.0) APTT 32.2 (25.3-37.0) SECONDS Sodium (137-145) mmol/L Potassium (3.5-5.1) mmol/L Chloride (98-107) mmol/L Carbon Dioxide (22-30) mmol/L Anion Gap (5-15) MEQ/L BUN (7-17) mg/dL Creatinine (0.52-1.04) mg/dL Estimated GFR ML/MIN Glucose (74-106) mg/dL Calcium (8.4-10.2) mg/dL Total Bilirubin (0.2-1.3) mg/dL AST (14-36) U/L ALT (0-35) U/L Alkaline Phosphatase (38-126) U/L Troponin I 0.027 (0.000-0.034) ng/mL Serum Total Protein (6.3-8.2) g/dL Albumin (3.5-5.0) g/dL Stool Occult Blood NEGATIVE (Negative) 03/26/18 03/26/18 Range/Units 20:49 20:49 WBC 4.1 (4.0-10.5) K/mm3 RBC 3.00 L (4.1-5.4) M/mm3 Hgb 9.4 L (12.0-16.0) gm/dl Hct 33.9 L (35-47) % MCV 113.0 H (78-100) fl MCH 31.3 (26-32) pg MCHC 27.7 L (32-36) g/dl RDW 22.5 H (11.5-14.0) % Plt Count 87 L (150-450) K/mm3 MPV 10.5 H (6-9.5) fl Gran % 59.6 (36.0-66.0) % Eos # (Auto) 0.06 (0-0.5) Absolute Lymphs (auto) 1.09 (1.0-4.6) Absolute Monos (auto) 0.48 (0.0-1.3) Lymphocytes % 26.7 (24.0-44.0) % Monocytes % 11.7 (0.0-12.0) % Eosinophils % 1.5 (0.00-5.0) % Basophils % 0.5 (0.0-0.4) % Absolute Granulocytes 2.44 (1.4-6.9) Basophils # 0.02 (0-0.4) PT (9.95-12.35) SECONDS INR (0.8-3.0) APTT (25.3-37.0) SECONDS Sodium 142 (137-145) mmol/L Potassium 4.4 (3.5-5.1) mmol/L Chloride 95 L (98-107) mmol/L Carbon Dioxide 41 H (22-30) mmol/L Anion Gap 10.4 (5-15) MEQ/L BUN 23 H (7-17) mg/dL Creatinine 1.02 (0.52-1.04) mg/dL Estimated GFR 56.5 ML/MIN Glucose 154 H (74-106) mg/dL Calcium 8.3 L (8.4-10.2) mg/dL Total Bilirubin 0.50 (0.2-1.3) mg/dL AST 32 (14-36) U/L ALT 32 (0-35) U/L Alkaline Phosphatase 154 H (38-126) U/L Troponin I (0.000-0.034) ng/mL Serum Total Protein 6.2 L (6.3-8.2) g/dL Albumin 3.7 (3.5-5.0) g/dL Stool Occult Blood (Negative) - Progress Progress: improved Progress Note: 03/26/18 22:52 Pt feels better after arriving to the ER. The Hgb is 9.4 and the stool guiac is negative. The rest of the labs are within normal limits. Pt will be d/c home and will F/U with PCP. - Departure Time of Disposition: 22:53 Departure Disposition: Home Clinical Impression: Weakness Condition: Stable Critical Care Time: No Referrals: IGLESIA DE LEON [Primary Care Provider] - Instructions: Generalized Weakness (DC) Additional Instructions: Follow up with your primary care doctor on Friday for any further recommendations.
[2018-03-26 21:08] LABS: BASOPHIL % 0.5 % (0.0-0.4); Basophil (Absolute #) 0.02 (0-0.4); Eosinophil % 1.5 % (0.00-5.0); Eosinophil (Absolute #) 0.06 (0-0.5); Granulocyte Absolute (ANC) 2.44 (1.4-6.9); Granulocytes % 59.6 % (36.0-66.0); Hematocrit 33.9 % (35-47); Hemoglobin 9.4 gm/dl (12.0-16.0); Lymphocyte (Absolute #) 1.09 (1.0-4.6); Lymphocytes % 26.7 % (24.0-44.0); Mean Corpuscular Hemoglobin 31.3 pg (26-32); Mean Corpuscular Hgb Concent. 27.7 g/dl (32-36); Mean Platelet Volume 10.5 fl (6-9.5); Monocyte (Absolute #) 0.48 (0.0-1.3); Monocytes % 11.7 % (0.0-12.0); Platelet Count 87 K/mm3 (150-450); Red Cell Distribution Width 22.5 % (11.5-14.0); White Blood Count 4.1 K/mm3 (4.0-10.5)
[2018-03-26] MEDS ORDERED: Sodium Chloride 0.9% 1000 ML 1,000 ML ONE (21:18)
[2018-03-26 21:21] LABS: INR 1.05 (0.8-3.0)
[2018-03-26 21:24] LABS: PTT 32.2 SECONDS (25.3-37.0)
[2018-03-26 21:25] LABS: ALBUMIN 3.7 g/dL (3.5-5.0); BILIRUBIN,TOTAL 0.5 mg/dL (0.2-1.3); Calcium 8.3 mg/dL (8.4-10.2); Creatinine 1 1.02 mg/dL (0.52-1.04); Potassium 4.4 mmol/L (3.5-5.1); Total Protein 6.2 g/dL (6.3-8.2)
[2018-03-26 22:00] LABS: ANION GAP 10.4 MEQ/L (5-15)
[2018-03-26 22:43] VITALS: O2SAT 89
[2018-03-26 23:03] VITALS: BP 135/67; PULSE 64
[2018-03-26 23:03] LABS: ABO TYPING A; Antibody Screen NEGATIVE (NEGATIVE); RH TYPING POSITIVE
[2018-03-27 03:30] LABS: Slide Review 1 YES
--- NOTE | 2018-03-27 09:16 | XRAY ---
Indication: Weakness. Low hemoglobin. Comparison: March 08, 2018. Portable chest again demonstrates bilateral mid to lower lung infiltrates/atelectasis, worsened on the right. Suspect new small left effusion. Stable cardiomegaly, left-sided dual-lead pacemaker, and CT proven aortic arch aneurysm.
== END 2018-03-26 23:49 | disposition home or self-care (01) ==
LOC: ED 20:39
DX: R53.1 Weakness (principal); Z79.82 Long term (current) use of aspirin; Z79.899 Other long term (current) drug therapy; E11.9 Type 2 diabetes mellitus without complications; Z79.84 Long term (current) use of oral hypoglycemic drugs; Z79.01 Long term (current) use of anticoagulants; Z87.11 Personal history of peptic ulcer disease
CPT/HCPCS: 36000; 36415; 71045; 80053; 82272; 84484; 85025; 85610; 85730; 86850; 86900; 86901; 93005; 93041; 96360; 96374; 96376; 99284